=== PATIENT | female | born 2005 | race Caucasian/White ===

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

== ENCOUNTER → 2025-01-01 | Outpatient (CLI) | payer OTHER, SELFPAY ==
[2025-01-01 18:00] LABS: AST(SGOT) 24 U/L (<=31); Alanine Aminotransfer ALT/SGPT 20 U/L (<=34); Albumin, Serum 5.1 g/dL (3.5-5.0); Alkaline Phosphatase 78 U/L (35-104); Bilirubin, Direct 0.17 mg/dL (0.00-0.30); Protein, Total 8.1 g/dL (5.9-8.4)
== END | disposition home or self-care (01) ==
LOC: MTLAB 15:44
PROVIDERS: PCP Pediatrics; Referring Provider Internal Medicine Gastroenterology; Visit Provider Internal Medicine Gastroenterology
DX: R94.8 Abnormal results of function studies of other organs and systems (principal); R93.5 Abnormal findings on diagnostic imaging of other abdominal regions, including retroperitoneum; D18.03 Hemangioma of intra-abdominal structures; K76.89 Other specified diseases of liver
CPT/HCPCS: 36415; 80076

== ENCOUNTER → 2025-02-24 | Outpatient (CLI) | payer OTHER, SELFPAY ==
--- OUTSIDE RECORDS SUMMARY | 2025-02-24 07:10 | XMS RPT_ITS | CCD ---
Author Organization [facility] Care Team Providers Care Service Delivery Supervisor Name Role Phone Cam Tan MD Primary Care Provider Dr. Cam Tan MD Primary Care Provider FREDDIE FIGUEROA Attending Provider FREDDIE FIGUEROA Referring Provider FREDDIE FIGUEROA Attending Provider FREDDIE FIGUEROA Referring Provider FREDDIE FIGUEROA Attending Provider FREDDIE FIGUEROA Referring Provider Dr. Cam Tan MD Primary Care Provider FREDDIE FIGUEROA Attending Provider FREDDIE FIGUEROA Referring Provider Cam Tan MD Primary Care Provider Cam Tan MD Primary Care Provider Cam Tan Primary Care Provider Jennifer GILBERT, Dr. Freddie Gomez Attending Provider [phone] Dr. Freddie Figueroa MD Referring Provider [phone] TARUN FARRIS Attending Unavailable FREDDIE FIGUEROA Referring Unavailable CAM TAN Primary Care Unavailable TARUN FARRIS Attending Unavailable CAM TAN Primary Care Unavailable TARUN FARRIS Attending Unavailable CAM TAN Primary Care Unavailable TARUN FARRIS Admitting Unavailable TARUN FARRIS Attending Unavailable CAM TAN Primary Care Unavailable BIANKA MACIEL Attending Unavailable CAM TAN Primary Care Unavailable STRONG, CAM H Primary Care Unavailable SOWMYA MACIEL Referring Unavailable STRONG, CAM H Primary Care Unavailable JANELL, SOWMYA Attending Unavailable Strong, Cam Primary Care Unavailable Glessing, Freddie R Referring Unavailable Glessing, Freddie R Attending Unavailable Strong, Cam Primary Care Unavailable AndLucas braden Attending Unavailable Strong, Cam Primary Care Unavailable BELNAVIS, PÉREZ Referring Unavailable BELNAVIS, PÉREZ Attending Unavailable Strong, Cam Primary Care Unavailable Glessing, Freddie R Attending Unavailable Glessing, Freddie R Referring Unavailable Strong, Cam Primary Care Unavailable BELNAVIS, PÉREZ Attending Unavailable BELNAVIS, PÉREZ Referring Unavailable Strong, Cam Primary Care Unavailable BELNAVIS, PÉREZ Attending Unavailable BELNAVIS, PÉREZ Referring Unavailable Strong, Cam Primary Care Unavailable BELNAVIS, PÉREZ Attending Unavailable BELNAVIS, PÉREZ Referring Unavailable Strong, Cam Primary Care Unavailable Glessing, Freddie R Attending Unavailable Glessing, Freddie R Referring Unavailable Strong, Cam Primary Care Unavailable Glessing, Freddie R Attending Unavailable Glessing, Freddie R Referring Unavailable BELNAVIS, PÉREZ Attending Unavailable Strong, Cam Primary Care Unavailable BELNAVIS, PÉREZ Referring Unavailable Medications Current Medications Medication Drug Class(es) Dates Sig (Normalized) Sig (Original) ondansetron 4 mg oral tablet (12 sources) Serotonin-3 Receptor Antagonist Start: 01-09-2025 End: 01-22-2025 take 1 tablet by mouth every eight hours as needed for nausea and vomiting ondansetron (Zofran) 4 MG tablet Take 1 tablet (4 mg) by mouth every 8 hours as needed for nausea or vomiting for up to 10 doses. 10 tablet 01/22/2025 Active Start: 01-09-2025 End: 01-09-2025 4 mg, IntraVENous, Once PRN, nausea, Starting on Sun01/09/25 at 1144, For 1 dose, Recovery (only), Initial antiemetic therapy. Start: 05-27-2024 take 1 tablet by daniel th three times daily as needed for nausea and vomiting Ondansetron 4 mg tablet,disintegrating Active 4 mg PO THREE TIMES A DAY as needed for nausea and vomiting May 27, 2024 8:36am oxyCODONE hydrochloride 5 mg oral tablet (3 sources) Opioid Agonist Start: 01-09-2025 End: 01-14-2025 take 1 tablet by mouth every six hours as needed for pain oxyCODONE (Roxicodone) 5 MG immediate release tablet Indications: Biliary dyskinesia , Chronic cholecystitis , Biliary sludge determined by ultrasound Take 1 tablet (5 mg) by mouth every 6 hours as needed for severe pain (7-10) for up to 5 days. 15 tablet 01/09/2025 1:12 PM EDT 01/09/2025 01/14/2025 Active polyethylene glycol 3350 89616 mg powder for oral solution (10 sources) Osmotic Laxative Start: 01-09-2025 End: 01-23-2025 polyethylene glycol, PEG, 3350 (Glycolax) 17 GM/SCOOP powder Mix 1 capful (17 grams) into 4-8 oz of liquid and drink daily for 10 days. 238 g 01/09/2025 1:12 PM EDT 01/09/2025 01/23/2025 Active Start: 10-28-2023 End: 05-27-2024 Polyethylene Glycol 3350 (Mi ralax) 17 gram/dose powder Discontinued 17 g PO TWICE A DAY 119 October 28, 2023 12:00am May 27, 2024 5:37am rizatriptan 10 mg oral tablet (3 sources) Serotonin-1b and Serotonin-1d Receptor Agonist Start: 01-01-2020 End: 06-29-2023 take 1 tablet by mouth every two hours as needed rizatriptan (MAXALT) 10 mg tablet Take 1 tablet by mouth as needed. May repeat in 2 hours if needed. Please refer to the migraine action plan 10 tablet 0 01/01/2020 06/29/2023 Discontinued Comment on above: Take 1 tablet by daniel as needed. May repeat in 2 hours if needed. Please refer to the migraine action plan Completed/Discontinued Medications Medication Drug Class(es) Dates Sig (Normalized) Sig (Original) acetaminophen 500 mg oral tablet (5 sources) Start: 01-09-2025 End: 01-09-2025 1,000 mg, Oral, Once, On Sun01/09/25 at 0930, For 1 dose, Preprocedure, Administer 60 minutes prior to surgery. Start: 09-05-2019 End: 06-29-2023 take 2 tablets by mouth every six hours as needed acetaminophen (TYLENOL) 325 mg tablet Take 2 tablets by mouth every 6 hours as needed (per the headache action plan). 0 09/05/2019 06/29/2023 Discontinued Comment on above: Take 2 tablets [address] [facility] every 6 hours as needed (per the headache action plan). ALPRAZolam 0.25 mg disintegrating oral tablet (4 sources) Benzodiazepine Start: 2024 End: 2024 take 0.25 mg by mouth once as needed for anxiety 0.25 mg, Oral, Once PRN, anxiety, Starting on Sun01/09/25 at 0947, For 1 dose, Preprocedure, Please do not administer prior to obtaining consent and/or history and physical. calcium chloride 0.0014 meq/ml / potassium chloride 0.004 meq/ml / sodium chloride 0.103 meq/ml / sodium lactate 0.028 meq/ml injectable solution (4 sources) Start: 2024 End: 2024 take 50 mL intravenously every hour 50 mL/hr, IntraVENous, Continuous, Starting on Sun01/09/25 at 1000, Preprocedure, Upon admission to sameday - please start iv if patient does not have iv access. Use 500ml NS for patients on dialysis. dicyclomine hydrochloride 20 mg oral tablet (6 sources) Anticholinergic Start: 2023 End: 2023 take 1 tablet by mouth three times daily Dicyclomine 20 mg tablet Discontinued 20 mg PO THREE TIMES A DAY October 28, 2023 12:00am May 27, 2024 5:37am 1 ml HYDROmorphone hydrochloride 1 mg/ml cartridge (2 sources) Opioid Agonist Start: 2024 End: 2024 0.5 mg, IntraVENous, Every 5 min PRN, severe pain (7-10), Starting on Sun01/09/25 at 1144, For 4 doses, Recovery (only), For Phase I. If Phase II oral narcotics have been administered in the last 60 minutes, do not administer IV narcotics unless specifically approved by provider. 5 ml sodium chloride 9 mg/ml injection (12 sources) Start: 2024 End: 2024 10 mL, IntraVENous, Every 12 hours scheduled (2 times per day), First dose on Sun01/09/25 at 0930, Preprocedure Start: 01-09-2025 End: 01-09-2025 take 5-40 mL intravenously every twelve hours 5-40 mL, IntraVENous, Every 12 hours, First dose on Sun01/09/25 at 0930, Preprocedure, For Line Patency: Peripheral IV = 5 mL; Midline or Central Line = 10 mL/lumen. If following IV push medication, administer flush at same rate as the IV push. Flush volume is determined by type of infusion therapy being given. For non-viscous solutions use: Peripheral IV = 5 mL Midline or Central Line = 10 mL/lumen For viscous solutions (i.e. blood components, parenteral nutrition, contrast media, or after obtaining blood sample) use: Peripheral IV = 10 mL Midline or Central Line = 20 mL/lumen Start: 01-09-2025 End: 01-09-2025 take 100 mL intravenously every hour as needed, then take 20 mL intravenously every hour as needed 5-250 mL/hr, IntraVENous, PRN, if patient receiving piggyback infusions and maintenance fluids are not ordered OR KVO fluids to protect IV site / prevent frequent line interruptions/ long duration, Starting on Sun01/09/25 at 0923, Preprocedure, For piggyback infusion, administer at same rate as piggyback for a total of 25 mL. Enter 25 mL into dose field and piggyback rate into rate field of order. If piggyback is infusing at a rate less than 100 mL/hr, enter 25 mL into dose field and 100 mL/hr into rate field of order. For KVO fluids, enter rate of 20 mL/hr or less into rate field of order. Start: 01-09-2025 End: 01-09-2025 take 10 mL intravenously once as needed 10 mL, IntraVENous, PRN, line care, Starting on Sun01/09/25 at 0923, Preprocedure, After every IV line use Problems Active Problems Problem Classification Problem Date Documented Da te Episodic/Chronic Abdominal pain (15 sources) Abdominal pain; Translations: [Unspecified abdominal pain] Onset: 06-17-2024 10-28-2023 Episodic Biliary tract disease (11 sources) Biliary sludge; Translations: [Other specified diseases of biliary tract] Onset: 01-05-2025 01-05-2025 Chronic Biliary tract disease (20 sources) Biliary dyskinesia; Translations: [Other specified diseases of gallbladder] Onset: 01-05-2025 01-05-2025 Episodic Esophageal disorders (1 source) Gastro-esophageal reflux disease without esophagitis; Translations: [Gastro-esophageal reflux disease without esophagitis] Onset: 12-26-2024 Chronic Genitourinary symptoms and ill-defined conditions (2 sources) Dysuria; Translations: [Dysuria] Onset: 01-27-2025 01-27-2025 Episodic Headache; including migraine (8 sources) Refractory migraine without aura; Translations: [Migraine without aura, intractable, without status migrainosus] Onset: 10-17-2017 10-17-2017 Chronic Immunizations and screening for infectious disease (3 sources) Patient encounter status; Translations: [Encounter for immunization] Episodic Menstrual disorders (2 sources) Menorrhagia; Translations: [Excessive and frequent menstruation with regular cycle] 06-29-2023 Chronic Nausea and vomiting (7 sources) Nausea and vomiting; Translations: [Nausea with vomiting, unspecified] Onset: 12-26-2024 06-04-2024 Episodic Other aftercare (1 source) Surgical follow-up; Translations: [Encounter for follow-up examination after completed treatment for conditions other than malignant neoplasm] 01-22-2025 Episodic Other gastrointestinal disorders (1 source) Celiac disease; Translations: [Celiac disease] Onset: 12-26-2024 Chronic Other gastrointestinal disorders (6 sources) Constipation; Translations: [Constipation, unspecified] 10-28-2023 Episodic Other gastrointestinal disorders (4 sources) Abdominal bloating; Translations: [Abdominal distension (gaseous)] 12-02-2024 Episodic Other gastrointestinal disorders (3 sources) Abdominal distension (gaseous); Translations: [Abdominal bloating] Onset: 12-26-2024 Episodic Other gastrointestinal disorders (1 source) Change in bowel habit; Translations: [Change in bowel habit] Onset: 12-26-2024 Episodic Other injuries and conditions due to external causes (6 sources) Fracture of bone; Translations: [Other injury of unspecified body region, initial encounter] 03-26-2021 Episodic Other nervous system disorders (5 sources) H/O: migraine; Translations: [Personal history of other diseases of the nervous system and sense organs] 06-04-2024 Episodic Other screening for suspected conditions (not mental disorders or infectious disease) (1 source) Abnormal results of function studies of other organs and systems; Translations: [Abnormal results of function studies of other organs and systems] Onset: 01-06-2025 Episodic Other upper respiratory infections (6 sources) Pharyngitis; Translations: [Acute pharyngitis, unspecified] 08-07-2018 Episodic Unclassified (2 sources) Post-op; Translations: [Post-op] Onset: 01-22-2025 Unclassified (2 sources) New Patient; Translations: [New Patient] Onset: 01-05-2025 Past or Other Problems Problem Classification Problem Date Documented Da te Episodic/Chronic Other and unspecified benign neoplasm (8 sources) Hemangioma; Translations: [Hemangioma unspecified site] Onset: 2005 2005 Episodic Results Test Name Value Interpretation Reference Range Facility Bacteria Ur Culton 5 Bacteria identified Cx Nom (U) ORGANISM ID: 1 <10,000 CFU/ml Normal urogenital vito Normal [facility] Comment on above: Performed By: #### 6 30-4 #### [facility] CLIA [id number] [address] [place] [address] [place] CNOVon 01-27-2025 CNOV Office Visit (UCWSTR ) JUDITH BEDOLLA ([id number]) 5 F Date Time Provider Department 01/27/25 7:30 PM BIANKA MACIEL [facility] During your visit today, we recorded the following information about you: Temperature Pulse Respiration Blood pressure 97.8 degrees 74/minute 18/minute 113/59 Weight Last Period 68.2 kg 01/22/25 Bianka Maciel APRN.MACHINE TRIMMER 01/27/2025 7:58 PM Signed [facility] Subjective Judith Pablito Bedolla is a 19 year old female. Patient presents with: UTI: Lower abd pressure, discomfort with urination x2 months, recent gallbladder removal, prior UTI treatment from that HPI Abdominal Bloating and Pressure: - Symptoms of bloating and lower abdominal pressure x1 week. - Describes sensation as weird and similar to previous asymptomatic UTIs. - Reports incomplete bladder emptying. - Denies dysuria, vaginal odor, discharge, pruritus, fever, chills, nausea, or emesis. - Recent cholecystectomy a few weeks ago; received antibiotics preoperatively. - Denies risk of STDs. - Normal bowel movements. Review of Systems Constitutional: (-) fever, (-) chills Gastrointestinal: (+) abdominal bloating, (+) lower abdominal pressure, (-) nausea, (-) vomiting Genitourinary: (+) sensation of incomplete bladder emptying, (-) dysuria, (-) vaginal discharge, (-) vaginal odor, (-) vaginal pruritus Objective BP 113/59 Pulse 74 Temp 36.6 ?C (97.8 ?F) Resp 18 Wt 68.2 kg (150 lb 5.7 oz) LMP 01/22/2025 (Exact Date) SpO2 99% Physical Exam General: No acute distress. CV: Heart sounds normal. Resp: Lung sounds normal. Back: No costovertebral angle tenderness. Abd: Mild tenderness to palpation in lower abdomen. {1. Dysuria (R30.0) - No dysuria, vaginal odor, or discharge reported. No fever, chills, nausea, or vomiting. - Urinalysis performed; results normal. - Ordered urine culture to verify absence of infection. - Advised patient to return for re-evaluation if symptoms worsen or change. 2. Abdominal bloating (R14.0) - Abdominal exam reveals tenderness and a sensation of fullness in the lower abdomen. - Symptoms have been present for approximately one week. - Recent cholecystectomy performed a few weeks ago; patient was on antibiotics prior to surgery. - No issues with bowel movements reported. - Advised patient to monitor symptoms and return if they worsen or change. and Recording using ambient Kanjoy[employer] software for draft documentation of the visit was discussed with the patient/authorized international account representative; all questions welcomed and answered. Patient/authorized international account representative agreed to proceed MDM Procedures Allergies As of Date: 01/27/2025 (No Known Allergies) Date Reviewed: 01/27/2025 Reviewed by: Denise Camarillo MA - Fully Assessed Reason for Visit: UTI [116] Cmt: Lower abd pressure, discomfort with urination x2 months, recent gallbladder removal, prior UTI treatment from that Primary Visit Diagnosis:Dysuria [R30.0] Other Visit Diagnosis:Abdominal bloating [R14.0] Order(s):UA DIP, URINE (POC) [2740170] Order #: [id number]. #:[id number] BACTERIAL CULTURE, URINE [SQURCUL] Order #: [id number]. #:[id number] Problem List As Of Date 01/27/2025 Noted Resolved HEMANGIOMA UNSPECIFIED SITE [D18.00] 2005 Intractable migraine without aura and without s*10/17/2017 Encounter Status:Closed by BIANKA MACIEL on 01/27/25 Normal [facility] UA DIP, URINE (POC)on 2024 BILIRUBIN UA (POCT) Negative Negative [facility] CLARITY UA (POCT) Clear [facility] COLOR UA (POCT) Yellow [facility] GLUCOSE UA (POCT) Negative Negative mg/dL [facility] Hemoglobin Ql (U) Negative Negative [facility] KETONE UA (POCT) Negative Negative mg/dL [facility] LEUKOCYTES UA (POCT) Negative Negative [facility] NITRITE UA (POCT) Negative Negative [facility] PH UA (POCT) 6 4.5 - 8.0 [facility] Protein Ql (U) Negative Negative mg/dL [facility] SPECIFIC GRAVITY UA (POCT) >=1.030 1.005 - 1.030 [facility] UROBILINOGEN UA (POCT) 0.2 Tonya l E.U./dL [facility] Location:[facility], [address] [place] [address], [place], [place], [id number] [place] [address] POINT OF CARE [facility] Office Visiton 01-22-2025 Follow-up visit [id number] Judith Bedolla 2005 F Date Provider Department Center 01/22/2025 [id number] FARRIS [facility] None No family history on file Level of Service:32221 MS POSTOP FOLLOW UP VISIT RELATED TO ORIGINAL PX Reason for Visit and Comments: Post-op [483] - PO Lap Anali 01/[address] [facility] Progress Noteon 01-22-2025 Progress Note General Surgery Tarun Farris MD, MPH Outpatient Post-Operative/Follow Up Office Note Patient ID: Judith Bedolla [id number] 19 y.o. 2005 Post Op. Surgery Date: 01/09/2025 Surgical Procedure: Laparoscopic Cholecystectomy. Diet has returned to normal. Pain well controlled. Some urge for defecation and stools soft but improving. Bad nausea post-op from anesthesia, improved with Zofran. Has been maintaining light activity. Wounds healing well. No other complaints or concerns at this time. Medical History[1] Surgical History[2] Medications Prior to Visit: Prior to Admission medications Medication Sig Start Date End Date Taking? Authorizing Provider polyethylene glycol, PEG, 3350 (Glycolax) 17 GM/SCOOP powder Mix 1 capful (17 grams) into 4-8 oz of liquid and drink daily for 10 days. 01/09/25 01/23/25 Yes Tarun Farris MD ondansetron (Zofran) 4 MG tablet Take 1 tablet (4 mg) by mouth every 8 hours as needed for nausea or vomiting for up to 10 doses. 01/09/25 01/22/25 Yes Tarun Farris MD ondansetron (Zofran) 4 MG tablet Take 1 tablet (4 mg) by mouth every 8 hours as needed for nausea or vomiting for up to 10 doses. 01/22/25 Tarun Farris MD Allergies: Patient has no known allergies. Social History[3] Family History[4] REVIEW OF SYSTEMS: Otherwise negative unless noted above. PHYSICAL EXAM: BP 119/78 Pulse 82 Temp 36.4 ?C (97.6 ?F) Ht 5' 7 (1.702 m) Wt 149 lb (67.6 kg) LMP 12/23/2024 (Exact Date) BMI 23.34 kg/m? Physical Exam Constitutional: General: She is not in acute distress. Appearance: She is not ill-appearing, toxic-appearing or diaphoretic. Comments: Appears stated age HENT: Head: Normocephalic and atraumatic. Right Ear: External ear normal. Left Ear: External ear normal. Nose: Nose normal. No rhinorrhea. Mouth/Throat: Mouth: Mucous membranes are moist. Eyes: General: No scleral icterus. Right eye: No discharge. Left eye: No discharge. Extraocular Movements: Extraocular movements intact. Conjunctiva/sclera: Conjunctivae normal. Cardiovascular: Rate and Rhythm: Normal rate. Pulses: Normal pulses. Pulmonary: Effort: Pulmonary effort is normal. No respiratory distress. Breath sounds: No wheezing. Abdominal: General: There is no distension. Palpations: There is no mass. Tenderness: There is no abdominal tenderness. There is no guarding or rebound. Hernia: No hernia is present. Comments: Well healing port site incisions - there is induration at the umbilicus Musculoskeletal: General: No swelling, tenderness, deformity or signs of injury. Normal range of motion. Cervical back: Normal range of motion. No rigidity. Skin: General: Skin is warm and dry. Neurological: General: No focal deficit present. Mental Status: She is alert. Cranial Nerves: No cranial nerve deficit (No gross abnormality). Psychiatric: Mood and Affect: Mood normal. Behavior: Behavior normal. Thought Content: Thought content normal. No orders of the defined types were placed in this encounter. PATHOLOGY: Final Diagnosis GALLBLADDER, CHOLECYSTECTOMY: - CHRONIC CHOLECYSTITIS at 1635 EDT Clinical Information Biliary dyskinesia [K82.8] Chronic cholecystitis [K81.1] Biliary sludge determined by ultrasound [K83.8] Gross Description Received in formalin labeled gallbladder is an 8.3 cm in length by 2.3 cm in diameter intact gallbladder. The serosa is pink-purple, smooth, and glistening. The cystic duct margin is inked black. Wall thickness is normal ranging 0.1 to 0.3 cm. The mucosa is green-brown and velvety with no mass or yellow-ontiveros streaking seen. Calculi are not identified. Commodity Management Specialist sections are submitted in one cassette. ASSESSMENT AND PLAN: This is a 19 y.o. female who underwent laparoscopic cholecystectomy on 01/09/25 and presents for a regularly scheduled post-op visit -Pathology reviewed at length - chronic cholecystitis. -Diet as tolerated -Stop Miralax -Continue PRN zofran -No need for further narcotics -Continue planned follow up with GI re: celiac dz -Refill for Zofran sent to pharmacy -Call as needed, follow up MIMA Farris MD 01/22/2025 4:59 PM [1] Past Medical History: Diagnosis Date Celiac disease 12/04/24 Colon polyp 12/04/24 Fractures 2014, 2021 Irritable bowel syndrome 01/27 Motion sickness [2] Past Surgical History: Procedure Laterality Date COLONOSCOPY 11/12/2024 LAP,CHOLECYSTECTOMY (HISTORICAL) 01/09/2025 LIP SURGERY (HISTORICAL) 2006 UPPER GASTROINTESTINAL ENDOSCOPY 11/12/2024 WISDOM TOOTH EXTRACTION [3] Social History Socioeconomic History Marital status: Single Tobacco Use Smoking status: Never Smokeless tobacco: Never Vaping Use Vaping status: Never Used Substance and Sexual Activity Alcohol use: Never Drug use: Never Sexual activity: Never Social Drivers of Health (more content not included)... [facility] 36on 01-15-2025 36 S: Patient's mom (Little) is calling the [facility] to discuss post op issue - nausea. B: Onset of symptoms/concern since surgery last week - 01-09-25. A: Mom states pt has been having issues with nausea since her gallbladder surgery. Denies fever, vomiting, bleeding or drainage to incisions; pain with urination, abdominal pain. Pt is only taking occas OTC Tylenol or Ibuprofen for pain. Pain is mild at this time; only slight constipation. Rev'd with Mom that pt should have Rx for Zofran - from 01-09-25. Mom states she has the bottle of Zofran but they were not sure what it was for. She will start taking Zofran and see if that helps. Advised Mom to have pt eat small frequent snacks, bland diet, sip fluids. R: Mom states she understands home care instructions. She will call back if any further ques or concerns. Keep appt for 01-22-25. Reason for Disposition Other post-op symptom or question Answer Assessment - Initial Assessment Questions 1. SYMPTOM: What's the main symptom you're concerned about? (e.g., pain, fever, vomiting) nausea 2. ONSET: When did nausea start? Ongoing since surgery 3. SURGERY: What surgery did you have? Gallbladder removal 4. DATE of SURGERY: When was the surgery? 01-09-25 5. ANESTHESIA: What type of anesthesia did you have? (e.g., general, spinal, epidural, local) general 6. DRAINS: Were any drains place in or around the wound? (e.g., Hemovac, Kalyan-Ortiz, Milady) No 7. PAIN: Is there any pain? If Yes, ask: How bad is it? (Scale 1-10; or mild, moderate, severe) Mild to moderate 8. FEVER: Do you have a fever? If Yes, ask: What is your temperature, how was it measured, and when did it start? No 9. VOMITING: Is there any vomiting? If Yes, ask: How many times? No - nausea 10. BLEEDING: Is there any bleeding? If Yes, ask: How much? and Where? No 11. OTHER SYMPTOMS: Do you have any other symptoms? (e.g., drainage from wound, painful urination, constipation) Slight constipation Protocols used: Post-Op Symptoms and [facility]on 01-09-2025 36 S: Patient mother Yelitza hayes spoke with [facility] nurse regarding post op problem B: Onset of symptoms/concern today A: States she had gallbladder surgery earlier today with Dr Farris. States she was having dry heaves since surgery. Gave her Zofran and tylenol at 4 pm. Pt had emesis at 410 pm. Unsure if vomited up meds, questions if should re-dose? Did not feel pills in emesis bag, did not see any but unsure if they were retained. R: secure chat to econometrician Jason Hanna LUNCHROOM OPERATOR. Per Jason Hanna, Okay to repeat dose of Zofran. Would hold off on the tylenol Above relayed to caller, advised caller to resume tylenol when next dosing time is due. Also discussed sticking to clear liquids and slowly advancing diet as tolerated due to the nausea and vomiting. Caller understands care advice. No further needs at this time. Patient instructed to call back with new or worsening symptoms. Reason for Disposition [1] Caller has URGENT question AND [2] triager unable to answer question Protocols used: [facility] ( test) Ql (U)o n 01-09-2025 Beta HCG ( test) Ql (U) [id number] [facility] Interpretation and review of laboratory results Normal [facility] NEGATIVE QC Pass [facility] POSITIVE QC Pass [facility] Preg Test, Ur Negative Negative [facility] Nursing Noteon 01-09-2025 Nursing Note To phase 2 via cart report to phase 2 rn tolerated cracker and clear liquids well Normal [facility] Nursing Note Patient educated on importance of coughing/ deep breathing after surgery to reduce risk of pneumonia. Patient educated on importance of early mobility to reduce the risk of blood clots. Falls prevention information reviewed with patient. Post-operative pain control and ways to prevent constipation discussed with patient. Normal [facility] [id number] 01-06-2025 [id number] Medication List as of January 06, 2025 11:40 AM You have not been prescribed any medications. Additional Instructions: You may take your prescription pain medication. You may take Tylenol for pain. NO Motrin, ibuprofen or Advil for 24 hours prior to surgery or longer if instructed by your surgeon. NO Aleve or Naprosyn for 5 days prior to surgery or longer if instructed by your surgeon. Shower with an antibacterial soap such as Dial or Safeguard or shower kit provided to you before coming to the hospital. No makeup, lotion, powder, deodorant or body spays. No hair products. Remove all jewelry and leave it at home. Wear loose comfortable clothing to go home in. You may brush your teeth morning of surgery. Do not wear contacts day of surgery. No marijuana (THC), smoking or alcohol for 24 hours prior to surgery. Please arrange for a responsible adult to drive you home after your surgery and that there is a responsible adult with you for 24 hours post discharge. If you have specific questions, please call your surgeon. You will receive a call the day before your surgery to verify your arrival time and date. You will be asked to arrive at least two hours prior to your scheduled surgery time. Please bring your [facility] Surgical folder and medication list with you day of surgery. We encourage you to write down any questions you may have for the surgeon, anesthesiologist, or other members of the surgical team and bring it with you the day of surgery. Please bring photo ID and insurance information. [facility] Progress Noteon 01-06-2025 Progress Note ADVANCED CARE PLANARIANNA Bedolla : 2005 Primary Care Physician: Cam Tan The patient and/or family/surrogate voluntarily agreed to participate in ACP services. Patient?s cognitive capacity: AXO3 Code Status: [x] [FULL CODE - Continue all advanced life support: CPR,intubation,invasiv e procedures] [_] [DNR-CCA - DO NOT do CPR, intubation] [_] [DNR-PLASTERER ROUGH - Comfort care only] [_] DNR form [was/was not] signed Summary of discussion: The patient health care POA/ surrogate is the following: None . [Condition that instigated the ACP on this DOS, relevant PMH, functional status, goals of care, and whom this was discussed with including names and relationship to the patient, and any relevant advance care documentation discussion] I answered all the patient/family questions that I could within the range and scope of the current medical situation. We discussed the medical conditions, risks, benefits, outcomes, and goals of care at this time for the patient's medical issues at hand in the face of the patient's chronic issues and current presentation. Total time spent: 4 minutes were spent discussing the patient's resuscitation status, advance care planning, and end of life care, with patient and/or family/surrogate. Anthony Pollock PA-C Acute care [facility] 01/06/2025, 11:[address] 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 Figueroa [facility] Bilirubin directOrdered By: Freddie Figueroa on 01-01-2025 Bilirubin.direct [Mass/Vol] 0.17 mg/dL Normal 0.00-0.30 [facility] Comment on above: Performed By: #### L 500.3400 ####[facility] [address] [place], [place], [id number] Bilirubin, totalOrdered By: Freddie Figueroa on 01-01-2025 Bilirubin [Mass/Vol] 0.40 mg/dL Normal 0.00-1.30 [facility] Comment on above: Performed By: #### L 500.3400 ####[facility] [address] [place], [address] Liver Profileon 01-01-2025 ALK PHOS 78 U/L Normal 35-104 [facility] Comment on above: Performed By: #### L 500.3400 ####[facility] [address] [place], [address] T PROT 8.1 g/dL Normal 5.9-8.4 [facility] Comment on above: Performed By: #### L 500.3400 ####[facility] [address] [place], [address] Liver ProfileOrdered By: Desmond Figueroa on 01-01-2025 AST [Catalytic activity/Vol] 24 U/L Normal <=31 [facility] Comment on above: Performed By: #### L 500.3400 ####[facility] [address] [place], [address] Serum globulin measurementOr dered By: Freddie Figueroa on 01-01-2025 Globulin (S) [Mass/Vol] 3.0 g/dL Normal 2.2-4.2 [facility] Comment on above: Performed By: #### L 500.3400 ####[facility] [address] [place], [address] Serum or plasma alanine hutson otransferase (ALT) measurementOrdered By: Freddie Figueroa on 01-01-2025 ALT [Catalytic activity/Vol] 20 U/L Normal <=34 [facility] Comment on above: Performed By: #### L 500.3400 ####[facility] [address] [place], [address] Serum or plasma albumin parveen urement (mass/volume)Ordered By: Freddie Figueroa on 01-01-2025 Albumin [Mass/Vol] 5.1 g/dL High 3.5-5.0 [facility] Comment on above: Performed By: #### L 500.3400 ####[facility] [address] [place], [address] Serum or plasma alkaline amanda sphatase measurementOrdered By: Freddie Figueroa on 01-01-2025 ALP [Catalytic activity/Vol] 78 U/L 35-104 [facility] Total proteinOrdered By: Desmond Figueroa on 01-01-2025 Protein [Mass/Vol] 8.1 g/dL 5.9-8.4 [facility] Abdomen Limitedon 12-30-2024 Abdomen Limited [facility] Imaging Services [address] [place], [place] [address] Abdomen Limited MR#: [id number] Acct: [id number] Name: JUDITH BEDOLLA Rep #: [id number] : 2005 F 19 From: Hussain pandey MD PCP: Dr. Cam Tan MD Status: REG CLI Study: Abdomen Limited Date of Exam: 12/30/24 Exam# [id number] Ordering Dr: Freddie Figueroa MD PROCEDURE: ABDOMEN LIMITED 12/30/2024 REASON FOR EXAM: BLOATING COMPARISON: Prior CT scan dated November 06, 2024. FINDINGS: Liver: Grossly normal size and echotexture. There is a 2.8 cm 1.5 cm 1.4 cm cyst in the superior aspect of the right lobe of the liver. There is also evidence of a 1 cm x 0.8 cm x 0.7 cm echogenic focus in the dome of the right lobe of the liver suggestive of a small hemangioma. Gallbladder: Small amount of sludge is seen within the gallbladder lumen. Common bile duct: Normal measuring 1.8 mm . Pancreas: Normal Other: Right kidney is unremarkable. US/Abdomen Limited IMPRESSION: Small cyst in the right lobe of the liver as well as a small hemangioma in the right lobe of the liver. Small amount of sludge is seen in the gallbladder lumen. Reading Location: [facility] CC: Dr. Freddie Figueroa MD; Dr. Cam Tan MD Club Car Attendant: Signed [facility] Hepatobilliary Img w/Pharm I nton 12-30-2024 Hepatobilliary Img w/Pharm Int [facility] Imaging Services [address] [place], [place] [address] Hepatobilliary Img w/Pharm Int MR#: [id number] Acct: [id number] Name: JUDITH BEDOLLA Rep #: [id number] : 2005 F 19 From: Hussain pandey MD PCP: Dr. Cam Tan MD Status: REG CLI Study: Hepatobilliary Img w/Pharm Int Date of Exam: 0 12/30/24 Exam# [id number] Ordering Dr: Freddie Figueroa MD PROCEDURE: HEPATOBILLIARY IMG W/PHARM INT 12/30/2024 REASON FOR EXAM: BLOATING, NAUSEA, GERD TECHNIQUE: Intravenous Choletec with planar imaging of the abdomen. 1.4 mcg Kinevac intravenously approximately 60 minutes after the radiopharmaceutical with additional anterior imaging and a region of interest drawn around the gallbladder to calculate a time-activity curve. RADIOPHARMACEUTICAL: Mebrofenin DOSE 6mCi COMPARISON: None FINDINGS: There is good uptake of the radiopharmaceutical by the liver. Normal gallbladder visualization with the gallbladder identified by 60 minutes. Gallbladder Ejection Fraction: 21 % (Normal is >35%) NM/Hepatobilliary Img w/Pharm Int IMPRESSION: Abnormally low ejection fraction of 21%. Reading Location: [facility] CC: Dr. Freddie Figueroa MD; Dr. Cam Tan MD Club Car Attendant: Signed [facility] US Pelvison 12-10-2024 Indication abdominal bloating Impression Normal appearing anteverted uterus that measures 88 mm x 38 mm x 47 mm. Endometrium has a normal trilaminar appearance and measures 12 mm. Arcuate endometrial contour. Both ovaries are visualized and appear normal with follicular change. No adnexal masses were observed. There is free fluid visualized in the peritoneal cavity. Recommendations Follow up as clinically indicated. Menstrual History LMP on 11/18/2024. Cycle: regular cycle. Contraception: none Method Transabdominal, transvaginal, 3D ultrasound examination, Color Doppler examination. View: Adequate visualization Uterus Uterus: Visualized Uterus position: anteverted Description of uterine malformations: arcuate Myometrium: normal Endometrium: three-layer pattern Cervix details: cystic lesions identified suggesting superficial Nabothian cysts Uterus length 88 mm Uterus width 47 mm Uterus height 38 mm Uterus Vol 81.5 cm Endometrial thickness, total 12.0 mm Fibroids: No fibroids identified Polyps: No polyps identified Right Ovary Rt ovary: Visualized Rt ovary morphology: premenopausal with dominant follicle Rt ovary D1 47 mm Rt ovary D2 23 mm Rt ovary D3 22 mm Rt ovary Vol 12.3 cm Rt ovarian follicle D1 22.1 mm Rt ovarian follicle D2 19.6 mm Rt ovarian follicle mean 20.9 mm Rt ovarian follicle vol 4.445 cm Left Ovary Lt ovary: Visualized Lt ovary morphology: premenopausal normal follicular Lt ovary D1 26 mm Lt ovary D2 11 mm Lt ovary D3 14 mm Lt ovary Vol 2.0 cm Cul de Sac Visualized. free fluid visualized: trace Performed By: Reshma Hays RDMS Read By: Elenita Romero M.D. MATERNAL MEDICINE [facility] Pelvison 12-09-2024 [facility] ) JUDITH BEDOLLA ([id number]) 5 F Date Time Provider Department 12/02/24 8:30 AM SOWMYA MACIEL OBGYWM During your visit today, we recorded the following information about you: Blood pressure Weight Last Period 100/68 70.7 kg 11/19/24 Sowmya Maciel MD 12/02/2024 9:18 AM Signed Youth Services Specialist offered: Patient declines. Obstetrics and Gynecology Concrete LOOM SETTER Visit Subjective Recording using ClipClock software for draft documentation of the visit was discussed with the patient/authorized international account representative; all questions welcomed and answered. Patient/authorized international account representative agreed to proceed CHIEF COMPLAINT: The patient is a 19-year-old female presenting for evaluation of bloating, pain, and nausea. HPI: Gastrointestinal Symptoms - Reports experiencing bloating, pain, and nausea for about three years. - Symptoms are exacerbated before and during her menstrual cycle, with increased bloating and intensified pain. - Recently developed acid reflux. - Currently under the care of a product operations associate at [facility] in [place]. - Underwent a colonoscopy and endoscopy, which revealed bile; further evaluation is ongoing. Menstrual Irregularities - Reports a history of painful and irregular menstrual cycles. - Noted a decrease in dysmenorrhea over time. - Menstrual cycle length ranges from 30 to 40 days. - Flow varies, lasting between 3 to 7 days. - Denies any vaginal itching, burning, or other symptoms suggestive of infection. Sexual Health - Denies any history of sexual activity. HISTORY: OB History Gravida0 Para0 Term0 Preterm0 AB0 Living0 SAB0 IAB0 Ectopic0 Multiple0 Live Births0 Territory Sales Manager Medical History LMP: 11/19/2024, Having periods Age at Menarche: Age at First : Age at Menopause: Territory Sales Manager Medical History Comments: Sexual Activity: Never; No partner data on record Contraception: No contraception data on record PAST MEDICAL HISTORY Diagnosis Date Abnormal findings on screening slightly elevated tyrosine Migraines NEGATIVE MEDICAL HISTORY 06/23/10 normal color vision PAST SURGICAL HISTORY Procedure Laterality Date LIP SURGERY PROC UNLISTED 05/05/2008 Hemangioma FAMILY HISTORY Problem Relation Age of Onset Cancer Father Breast cancer Hypertension Father MGGM Lipids Father father, PGM other (migraine) Father pat uncle Social History Tobacco Use Smoking status: Never Passive exposure: Never Smokeless tobacco: Never Vaping Use Vaping status: Never Used Substance Use Topics Alcohol use: Never Drug use: Never No current outpatient medications on file. No current facility-administered medications for this visit. ALLERGIES No Known Allergies REVIEW OF SYSTEMS: Gastrointestinal: (+) bloating, (+) abdominal pain, (+) nausea, (+) acid reflux Genitourinary: (+) irregular menses, (-) vaginal itching, (-) vaginal burning, (-) vaginal discharge Objective SENSITIVE EXAM: The sensitive examination was discussed with the Patient or Patient's Authorized Commodity Management Specialist. As applicable, any other physician, advance practice provider, medical student, or other health professional student that will be observing or involved in the sensitive examination for educational or training purposes was discussed with the Patient or Authorized Commodity Management Specialist. The Patient or Authorized Commodity Management Specialist has agreed to proceed with the sensitive examination. (Sensitive examination includes inspection and/or palpation of the breasts, pelvis, prostate and anorectal regions). PHYSICAL EXAM: BP 100/68 Wt 155 lb 12.8 oz (70.7kg) LMP 11/19/2024 General: No acute distress. Abd: Abdomen soft, non-distended, non-tender to palpation. Assessment AND Plan ASSESSMENT AND PLAN: 1. Abdominal bloating (R14.0) 2. Chronic abdominal pain (R10.9) 3. Nausea (R11.0) - Symptoms have been present for approximately 3 years, with exacerbation noted during menstrual cycles. - Recent colonoscopy and endoscopy performed by the [facility] in [place] revealed bile; no definitive diagnosis yet. - Abdominal exam reveals a soft, non-distended abdomen without tenderness. - Ordered pelvic ultrasound to evaluate uterus and ovaries; patient consented to both abdominal and transvaginal probes. - Discussed potential use of hormonal medication to manage cyclic symptoms if ultrasound findings are inconclusive. - Patient prefers to await ultrasound results before considering hormonal treatment. - Ultrasound to be scheduled at the meat scrubber; performed in this building. Labs AND imaging results from [facility] reviewed Medical Decision Making: Problems: Moderate: New problem with uncertain prognosis Data: Unique test result(s) reviewed: 3+ Risk: Low: Low risk from testing/treatment Medical Decision Making Level: 4 - Moderate Sowmya Maciel, (more content not included)... Normal [facility] Gastric Emptying Studyon Gastric Emptying Study [facility] Imaging Services [address] [place], [place] [id number] Gastric Emptying Study MR#: [id number] Acct: [id number] Name: JUDITH BEDOLLA Rep #: [id number] : 2005 F 19 From: Nathan Samano MD PCP: Dr. Cam Tan MD Status: REG CLI Study: Gastric Emptying Study Date of Exam: 11/14/24 Exam# [id number] Ordering Dr: FREDDIE FIGUEROA PROCEDURE: GASTRIC EMPTYING STUDY N/A REASON FOR EXAM: ABD BLOATING/CRAMPING/NAUS EA/PAIN/CONSTIPATION SHARP BELLY PAIN. COMPARISON: CT ABDOMEN AND PELVIS DATED 11/06/2024. TECHNIQUE: Half-life: 40 MINUTES Gastroesophageal reflux: None. The patient ingested a standard meal of 1 cup of oatmeal with the radiopharmaceutical. Following ingestion, anterior and posterior gamma camera images were acquired at 60 second intervals for a total of 60 minutes. Regions of interest were drawn, and a geometric mean was used to calculate a udhh-ebuxlbgt-wzecm. Medications taken in the past 24 hours that may affect gastric emptying: None Radiopharmaceutical: 1.2 mCi of Technetium Sulfur Colloid in oatmeal. FINDINGS: Percent activity remaining in stomach: 1 hour 31 % (normal 37-90%) NM/Gastric Emptying Study IMPRESSION: THERE IS 31% ACTIVITY REMAINING IN THE STOMACH AT 60 MINUTES, SLIGHTLY BELOW THE NORMAL RANGE FOR GASTRIC EMPTYING. Reading Location: [place] [address] CC: FREDDIE FIGUEROA; Dr. Cam Tan MD Club Car Attendant: Signed Normal [facility] Abdomen/Pelvis WITH Contrast on 11-06-2024 Abdomen/Pelvis WITH Contrast [facility] Imaging Services [address] [place] [address] Abdomen/Pelvis WITH Contrast MR#: [id number] Acct: [id number] Name: JUDITH BEDOLLA Rep #: [id number] : 2005 F 19 From: Hussain pandey MD PCP: Dr. Cam Tan MD Status: REG CLI Study: Abdomen/Pelvis WITH Contrast Date of Exam: 10/28 Exam# [id number] Ordering Dr: FREDDIE FIGUEROA PROCEDURE: ABDOMEN/PELVIS WITH CONTRAST 11/06/2024 REASON FOR EXAM: ABD PAIN W/WEIGHT LOSS Nausea. TECHNIQUE: Abdomen and pelvis CT with intravenous contrast. Coronal and Sagittal reconstruction series were provided. PATIENT PREPARATION: Per protocol ORAL CONTRAST TYPE: Given. CONTRAST: Isovue-300 VOLUME: 95 mL One or more dose reduction techniques were used (e.g., Automated exposure control, adjustment of the mA and/or kV according to patient size, use of iterative reconstruction technique. RADIATION DOSE SUMMARY: CTDlvol: 11 mGy DLP: 641.06 mGycm COMPARISON: Comparison is made with prior study dated October 28, 2023. FINDINGS: Lung bases: Unremarkable. Liver: Stable 1.7 cm cyst in the anterior medial portion of the superior right lobe of the liver. Gallbladder: Unremarkable Spleen: Normal size. Pancreas: Normal size without evidence of mass surrounding inflammation or ductal dilation. Adrenals: Unremarkable Kidneys: Normal renal sizes. No hydronephrosis. Bladder: Unremarkable Reproductive Organs: Normal uterine size and contour. 1.8 cm follicle in the left ovary. 1.1 cm follicle in the right ovary. Bowel: Unremarkable Appendix: Unremarkable Lymph nodes: Unremarkable Vasculature: The abdominal aorta and IVC are normal. Peritoneum / Retroperitoneum: Unremarkable Bones: Unremarkable CT/Abdomen/Pelvis WITH Contrast IMPRESSION: Stable 1.7 cm cyst in the anterior medial aspect of the right lobe of the liver superiorly. Reading Location: [place] [address] CC: FREDDIE FIGUEROA; Dr. Cam Tan MD Club Car Attendant: Signed Normal [facility] L3410.9998on 10-24-2024 [facility]. COMMENT Normal . [facility] Comment on above: Order Comment: [id number] 0PORPHYRINS URINE*PROTECT LIGHT Result Comment: Test Ordered: [id number] Porphyrins, Qn, Random U Uroporphyrins (UP) 13 ug/L Reference Range: 0-20 Heptacarboxyl (7-CP) <1 ug/L BN Reference Range: 0-2 Hexacarboxyl (6-CP) <1 ug/L BN Reference Range: 0-1 Pentacarboxyl (5-CP) <1 ug/L BN Reference Range: 0-2 Coproporphyrin (CP) I 19 [H ] ug/L BN Reference Range: 0-15 Coproporphyrin (CP) III 30 ug/L BN Reference Range: 0-49 Performed at: [facility] [address] [id number] Hospital Coder: Karin Agarwal MD, Phone: [phone] Performed at: CB - [facility] [id number] Hospital Coder: Terrance Barrett PhD, Phone: [phone] Performed By: #### L 3400.5105, L501.6710, L3410.9998 ####[facility] [address] [place], [place], [id number] Tryptaseon 10-24-2024 TRYPTASE 3.0 ug/L Normal 2.2-13.2 [facility] Comment on above: Result Comment: Perf ormed at: [facility] [id number] Hospital Coder: Karin Agarwal MD, Phone: [phone] Performed By: #### L 3400.5105, L501.6710, L3410.9998 ####[facility] [address] [place], [place], [id number] CRPon 10-20-2024 C-REACTIVE PROT < 3.00 Normal 0.0-3.0 [facility] Comment on above: Performed By: #### L 3400.5105, L501.6710, L3410.9998 ####[facility] [address] [place], [place], [id number] CRP [Mass/Vol]on 10-20-2024 C-Reactive Protein Extended Range < 3.00 mg/L 0.0-3.0 [facility] Serum or plasma C reactive p rotein measurement (mass/volume)on 10-20-2024 CRP [Mass/Vol] mg/L 0.0-3.0 [facility] Tryptaseon 10-20-2024 Tryptase 3.0 ug/L 2.2-13.2 [facility] Comment on above: Performed at: [facility] [address] [id number] Director: Karin Agarwal MD, Phone: [phone] Urine Cultureon 09-12-2024 [facility] Culture exhibits no growth. Normal [facility] Comment on above: Performed By: #### M 130.5379 #### [facility] Laboratory [address] [place], [place], [id number] Urine cultureon 09-11-2024 Bacteria identified Cx Nom (U) Culture exhibits no growth. [facility] Immunoglobulin Aon 4 IMMUNOGLOB A QN 81 mg/dL Low 87-352 [facility] Comment on above: Order Comment: N Result Comment: Perf ormed at: [facility] [id number] Hospital Coder: Terrance Barrett PhD, Phone: [phone] Performed By: #### L 100.0100, L506.1000, L3410.2970, L3410.2920, L500.4050, L501.6710, L3200.1400, L501.9520 ####[facility] [address] [place], [place], [id number] t-Transglutaminase IgAon tTG IGA <2 Normal 0-3 [facility] Comment on above: Order Comment: N Result Comment: Nega tive 0 - 3 Weak Positive 4 - 10 Positive >10 Tissue Transglutaminase (tTG) has been identified as the endomysial antigen. Studies have demonstr- ated that endomysial IgA antibodies have over 99% specificity for gluten sensitive enteropathy. Performed By: #### L 100.0100, L506.1000, L3410.2970, L3410.2920, L500.4050, L501.6710, L3200.1400, L501.9520 ####[facility] [address] [place], [place], [id number] t-Transglutaminase IgGon tTG IGG 3 U/mL Normal 0-5 [facility] Comment on above: Order Comment: N Result Comment: Nega tive 0 - 5 Weak Positive 6 - 9 Positive >9 Performed By: #### L 100.0100, L506.1000, L3410.2970, L3410.2920, L500.4050, L501.6710, L3200.1400, L501.9520 ####[facility] [address] [place], [address] 81-HE-Nehfmya Don 07-09-2024 Vitamin D 25-Hydroxy 25.9 ng/mL [facility] Comment on above: Vitamin D 25(OH) Sta tus Range Deficiency <20 ng/mL (50nmol/L) Insufficiency 20 - 30 ng/mL (50 - 75 nmol/L) Sufficiency 30 - 100 ng/mL (75 - 250 nmol/L) Toxicity >100 ng/mL (>250 nmol/L) Absolute neutrophil counton 07-09-2024 Neutrophils (Bld) [#/Vol] 4.7 10*3/uL 2.0-7.7 [facility] Albumin to globulin ratioon 07-09-2024 Albumin/Globulin [Mass ratio] 1.2 {ratio} 0.9-2.4 [facility] Basophil percentageon 2023 Basophils/100 WBC (Bld) 0.8 % 0-1 [facility] Bilirubin, totalon Bilirubin [Mass/Vol] 0.50 mg/dL 0.20-1.00 [facility] Comment on above: For patients on eltr ombopag therapy, use of Dimension [place] TBIL is not recommended. Blood urea nitrogen (BUN)/cr eatinine ratioon 07-09-2024 Urea nitrogen/Creatinine [Mass ratio] 19.3 mg/mg 10-20 [facility] C-reactive protein measureme nt by high sensitivity methodon 07-09-2024 C-Reactive Protein Extended Range < 2.90 mg/L 0.0-3.0 [facility] Comment on above: C-Reactive Protein ( CRP) provides useful information for thediagnosis, therapy and monitoring of inflammatory processesand associated diseases. For the evaluation of Relative Riskfor Cardiovascular Disease, a High Sensitivity CRP (HSCRP)should be ordered. CBC W/Diff, Automatedon Absolute Lymph 2.00 X10 3/uL Normal 0.83-4.51 [facility] Comment on above: Performed By: #### L 100.0100, L506.1000, L3410.2970, L3410.2920, L500.4050, L501.6710, L3200.1400, L501.9520 #### [facility] [address] [place], [address] Absolute Neut 4.7 X10 3/uL Normal 2.0-7.7 [facility] Comment on above: Performed By: #### L 100.0100, L506.1000, L3410.2970, L3410.2920, L500.4050, L501.6710, L3200.1400, L501.9520 #### [facility] [address] [place], [address] Basophils/100 WBC (Bld) 0.8 % Normal 0-1 [facility] Comment on above: Performed By: #### L 100.0100, L506.1000, L3410.2970, L3410.2920, L500.4050, L501.6710, L3200.1400, L501.9520 #### [facility] [address] [place], [address] Eosinophils/100 WBC (Bld) 1.1 % Normal 0-5 [facility] Comment on above: Performed By: #### L 100.0100, L506.1000, L3410.2970, L3410.2920, L500.4050, L501.6710, L3200.1400, L501.9520 #### [facility] [address] [place], [address] Erythrocyte distribution width (RBC) [Ratio] 12.1 % Normal 11.6-14.6 [facility] Comment on above: Performed By: #### L 100.0100, L506.1000, L3410.2970, L3410.2920, L500.4050, L501.6710, L3200.1400, L501.9520 #### [facility] [address] [place], [address] Hematocrit (Bld) [Volume fraction] 44.2 % Normal 37-47 [facility] Comment on above: Performed By: #### L 100.0100, L506.1000, L3410.2970, L3410.2920, L500.4050, L501.6710, L3200.1400, L501.9520 #### [facility] [address] [place], [address] Hemoglobin (Bld) [Mass/Vol] 14.1 g/dL Normal 12.0-15.0 [facility] Comment on above: Performed By: #### L 100.0100, L506.1000, L3410.2970, L3410.2920, L500.4050, L501.6710, L3200.1400, L501.9520 #### [facility] [address] [place], [address] IG% 0.100 Normal 0.0-0.9 [facility] Comment on above: Result Comment: IG% - Immature Granulocytes (promyelocytes, myelocytes and metamyelocytes) > 1% indicates that a LEFT SHIFT is Present. Performed By: #### L 100.0100, L506.1000, L3410.2970, L3410.2920, L500.4050, L501.6710, L3200.1400, L501.9520 #### [facility] [address] [place], [address] Lymphocytes/100 WBC (Bld) 27.5 % Normal 19-41 [facility] Comment on above: Performed By: #### L 100.0100, L506.1000, L3410.2970, L3410.2920, L500.4050, L501.6710, L3200.1400, L501.9520 #### [facility] [address] [place], [address] MCH (RBC) [Entitic mass] 29.8 pg Normal 27.0-32.0 [facility] Comment on above: Performed By: #### L 100.0100, L506.1000, L3410.2970, L3410.2920, L500.4050, L501.6710, L3200.1400, L501.9520 #### [facility] [address] [place], [address] MCHC (RBC) [Mass/Vol] 31.9 g/dL Low 32-36 [facility] Comment on above: Performed By: #### L 100.0100, L506.1000, L3410.2970, L3410.2920, L500.4050, L501.6710, L3200.1400, L501.9520 #### [facility] [address] [place], [address] MCV (RBC) [Entitic vol] 93.4 fL Normal 81-99 [facility] Comment on above: Performed By: #### L 100.0100, L506.1000, L3410.2970, L3410.2920, L500.4050, L501.6710, L3200.1400, L501.9520 #### [facility] [address] [place], [address] Monocytes/100 WBC (Bld) 6.3 % Normal 0-10 [facility] Comment on above: Performed By: #### L 100.0100, L506.1000, L3410.2970, L3410.2920, L500.4050, L501.6710, L3200.1400, L501.9520 #### [facility] [address] [place], [address] Neutrophils/100 WBC (Bld) 64.2 % Normal 47-70 [facility] Comment on above: Performed By: #### L 100.0100, L506.1000, L3410.2970, L3410.2920, L500.4050, L501.6710, L3200.1400, L501.9520 #### [facility] [address] [place], [address] Nucleated RBC (Bld) [#/Vol] 0 10*3/uL Normal 0-5 [facility] Comment on above: Performed By: #### L 100.0100, L506.1000, L3410.2970, L3410.2920, L500.4050, L501.6710, L3200.1400, L501.9520 #### [facility] [address] [place], [address] Platelet mean volume (Bld) [Entitic vol] 12.1 fL High 6.2-12.0 [facility] Comment on above: Performed By: #### L 100.0100, L506.1000, L3410.2970, L3410.2920, L500.4050, L501.6710, L3200.1400, L501.9520 #### [facility] [address] [place], [address] Platelets (Bld) [#/Vol] 199 10*3/uL Normal 150-450 [facility] Comment on above: Performed By: #### L 100.0100, L506.1000, L3410.2970, L3410.2920, L500.4050, L501.6710, L3200.1400, L501.9520 #### [facility] [address] [place], [address] RBC (Bld) [#/Vol] 4.73 10*6/uL Normal 4.2-5.4 [facility] Comment on above: Performed By: #### L 100.0100, L506.1000, L3410.2970, L3410.2920, L500.4050, L501.6710, L3200.1400, L501.9520 #### [facility] [address] [place], [address] RDW SD 41.9 fl Normal 35.1-43.9 [facility] Comment on above: Performed By: #### L 100.0100, L506.1000, L3410.2970, L3410.2920, L500.4050, L501.6710, L3200.1400, L501.9520 #### [facility] [address] [place], [place], [id number] (940) WBC (Bld) [#/Vol] 7.3 10*3/uL Normal 4.4-11.0 [facility] Comment on above: Performed By: #### L 100.0100, L506.1000, L3410.2970, L3410.2920, L500.4050, L501.6710, L3200.1400, L501.9520 #### [facility] [address] [place], [place], [id number] (868) CRPon 07-09-2024 C-REACTIVE PROT < 2.90 Normal 0.0-3.0 [facility] Comment on above: Result Comment: C-Re active Protein (CRP) provides useful information for the diagnosis, therapy and monitoring of inflammatory processes and associated diseases. For the evaluation of Relative Risk for Cardiovascular Disease, a High Sensitivity CRP (HSCRP) should be ordered. Performed By: #### L 100.0100, L506.1000, L3410.2970, L3410.2920, L500.4050, L501.6710, L3200.1400, L501.9520 ####[facility] [address] [place], [place], [id number] Carbon dioxide measurementon 07-09-2024 CO2 [Moles/Vol] 25.0 mmol/L 21.0-32.0 [facility] Chloride measurementon 07-09 Chloride [Moles/Vol] 107 mmol/L 98-107 [facility] Comprehensive Metabolic Prof ilon 07-09-2024 Albumin [Mass/Vol] 4.3 g/dL Normal 3.2-5.0 [facility] Comment on above: Performed By: #### L 100.0100, L506.1000, L3410.2970, L3410.2920, L500.4050, L501.6710, L3200.1400, L501.9520 ####[facility] [address] [place], [address] Albumin/Globulin [Mass ratio] 1.2 {ratio} Normal 0.9-2.4 [facility] Comment on above: Performed By: #### L 100.0100, L506.1000, L3410.2970, L3410.2920, L500.4050, L501.6710, L3200.1400, L501.9520 ####[facility] [address] [place], [address] ALK P 55 U/L Normal 45-117 [facility] Comment on above: Performed By: #### L 100.0100, L506.1000, L3410.2970, L3410.2920, L500.4050, L501.6710, L3200.1400, L501.9520 ####[facility] [address] [place], [address] ALT [Catalytic activity/Vol] 16 U/L Normal 13-56 [facility] Comment on above: Performed By: #### L 100.0100, L506.1000, L3410.2970, L3410.2920, L500.4050, L501.6710, L3200.1400, L501.9520 ####[facility] [address] [place], [address] AST [Catalytic activity/Vol] 17 U/L Normal 15-37 [facility] Comment on above: Performed By: #### L 100.0100, L506.1000, L3410.2970, L3410.2920, L500.4050, L501.6710, L3200.1400, L501.9520 ####[facility] [address] [place], [address] Bilirubin [Mass/Vol] 0.50 mg/dL Normal 0.20-1.00 [facility] Comment on above: Result Comment: For patients on eltrombopag therapy, use of Dimension [place] TBIL is not recommended. Performed By: #### L 100.0100, L506.1000, L3410.2970, L3410.2920, L500.4050, L501.6710, L3200.1400, L501.9520 ####[facility] [address] [place], [address] BUN/CRE 19.3 RATIO Normal 10-20 [facility] Comment on above: Performed By: #### L 100.0100, L506.1000, L3410.2970, L3410.2920, L500.4050, L501.6710, L3200.1400, L501.9520 ####[facility] [address] [place], [place], [id number] CA,Total 9.6 mg/dL Normal 8.5-10.1 [facility] Comment on above: Performed By: #### L 100.0100, L506.1000, L3410.2970, L3410.2920, L500.4050, L501.6710, L3200.1400, L501.9520 ####[facility] [address] [place], [address] Chloride [Moles/Vol] 107 mmol/L Normal 98-107 [facility] Comment on above: Performed By: #### L 100.0100, L506.1000, L3410.2970, L3410.2920, L500.4050, L501.6710, L3200.1400, L501.9520 ####[facility] [address] [place], [address] CO2 [Moles/Vol] 25.0 mmol/L Normal 21.0-32.0 [facility] Comment on above: Performed By: #### L 100.0100, L506.1000, L3410.2970, L3410.2920, L500.4050, L501.6710, L3200.1400, L501.9520 ####[facility] [address] [place], [address] Creatinine [Mass/Vol] 1.09 mg/dL High 0.55-1.02 [facility] Comment on above: Result Comment: The validity of the calculated GFR GFRAA in patients over 70 years has not been determined. Clinical correlation is essential. Performed By: #### L 100.0100, L506.1000, L3410.2970, L3410.2920, L500.4050, L501.6710, L3200.1400, L501.9520 ####[facility] [address] [place], [address] EST GFR - AA 83 mL/min Normal >60 [facility] Comment on above: Result Comment: Afri can Croatian GFR Calc Performed By: #### L 100.0100, L506.1000, L3410.2970, L3410.2920, L500.4050, L501.6710, L3200.1400, L501.9520 ####[facility] [address] [place], [address] GAP 8 Normal 5-15 [facility] Comment on above: Performed By: #### L 100.0100, L506.1000, L3410.2970, L3410.2920, L500.4050, L501.6710, L3200.1400, L501.9520 ####[facility] [address] [place], [address] GFR/1.73 sq M.predicted among non-blacks MDRD (S/P/Bld) [Vol rate/Area] 69 mL/min/{1.73_m2} Normal >60 [facility] Comment on above: Result Comment: Non- GFR Calc Performed By: #### L 100.0100, L506.1000, L3410.2970, L3410.2920, L500.4050, L501.6710, L3200.1400, L501.9520 ####[facility] [address] [place], [address] Globulin (S) [Mass/Vol] 3.5 g/dL Normal 2.2-4.2 [facility] Comment on above: Performed By: #### L 100.0100, L506.1000, L3410.2970, L3410.2920, L500.4050, L501.6710, L3200.1400, L501.9520 ####[facility] [address] [place], [address] Glucose [Mass/Vol] 105 mg/dL Normal 74-106 [facility] Comment on above: Result Comment: Fast ing Glucose result from 100 to 125 mg/dL suggests IMPAIRED HOMEOSTASIS per A.D.A. criteria. Performed By: #### L 100.0100, L506.1000, L3410.2970, L3410.2920, L500.4050, L501.6710, L3200.1400, L501.9520 ####[facility] [address] [place], [address] Potassium [Moles/Vol] 4.2 mmol/L Normal 3.5-5.1 [facility] Comment on above: Performed By: #### L 100.0100, L506.1000, L3410.2970, L3410.2920, L500.4050, L501.6710, L3200.1400, L501.9520 ####[facility] [address] [place], [address] Sodium [Moles/Vol] 140 mmol/L Normal 136-145 [facility] Comment on above: Performed By: #### L 100.0100, L506.1000, L3410.2970, L3410.2920, L500.4050, L501.6710, L3200.1400, L501.9520 ####[facility] [address] [place], [address] T PROT 7.8 g/dL Normal 6.4-8.2 [facility] Comment on above: Performed By: #### L 100.0100, L506.1000, L3410.2970, L3410.2920, L500.4050, L501.6710, L3200.1400, L501.9520 ####[facility] [address] [place], [address] Urea nitrogen [Mass/Vol] 21 mg/dL High 7-18 [facility] Comment on above: Performed By: #### L 100.0100, L506.1000, L3410.2970, L3410.2920, L500.4050, L501.6710, L3200.1400, L501.9520 ####[facility] [address] [place], [address] Eosinophil percentageon 12-0 Eosinophils/100 WBC (Bld) 1.1 % 0-5 [facility] Erythrocyte distribution wid th ratioon 07-09-2024 Erythrocyte distribution width (RBC) [Ratio] 12.1 % 11.6-14.6 [facility] Erythrocyte distribution wid th standard deviationon 07-09-2024 Erythrocyte distribution width (RBC) [Entitic vol] 41.9 fL 35.1-43.9 [facility] Estimated glomerular filtrat ion rate (GFR) Americanon 07-09-2024 Estimated GFR (MDRD) Amer 83 mL/min >60 [facility] Comment on above: GFR Calc Glomerular filtration rate ( GFR) estimationon 07-09-2024 Estimated GFR (MDRD) Non-Af Amer 69 mL/min >60 [facility] Comment on above: Non- GFR Calc Glucose measurementon 2023 Glucose [Mass/Vol] 105 mg/dL 74-106 [facility] Comment on above: Fasting Glucose resu lt from 100 to 125 mg/dL suggests IMPAIRED HOMEOSTASIS per A.D.A. criteria. Hematocrit Auto (Bld) [Volum e fraction]on 07-09-2024 Hematocrit (Bld) [Volume fraction] 44.2 % 37-47 [facility] Hemoglobin measurementon Hemoglobin (Bld) [Mass/Vol] 14.1 g/dL 12.0-15.0 [facility] IgA [Mass/Vol]on 07-09-2024 Immunoglobulin A 81 mg/dL Low 87-352 [facility] Comment on above: Performed at: [facility] [place] [id number] Director: Terrance Barrett PhD, Phone: [phone] Immature granulocytes/100 WB C Auto (Bld)on 07-09-2024 Immature granulocytes/100 WBC (Bld) 0.100 % 0.0-0.9 [facility] Comment on above: IG% - Immature Granu locytes (promyelocytes, myelocytes and metamyelocytes) > 1% indicates that a LEFT SHIFT is Present. Laboratory - Chemistry and C hemistry - challengeon 07-09-2024 AST [Catalytic activity/Vol] 17 U/L 15-37 [facility] Lymphocytes Auto (Unsp spec) [#/Vol]on 07-09-2024 Lymphocytes (Bld) [#/Vol] 2.00 10*3/uL 0.83-4.51 [facility] Lymphocytes/100 WBC Auto (Un sp spec)on 07-09-2024 Lymphocytes/100 WBC (Bld) 27.5 % 19-41 [facility] MCV (mean corpuscular volume ) determinationon 07-09-2024 MCV (RBC) [Entitic vol] 93.4 fL 81-99 [facility] Mean corpuscular hemoglobin (MCH) determinationon 07-09-2024 MCH (RBC) [Entitic mass] 29.8 pg 27.0-32.0 [facility] Mean corpuscular hemoglobin concentration (MCHC) determinationon 07-09-2024 MCHC (RBC) [Mass/Vol] 31.9 g/dL Low 32-36 [facility] Mean platelet volume determi nationon 07-09-2024 Platelet mean volume (Bld) [Entitic vol] 12.1 fL High 6.2-12.0 [facility] Monocyte percentageon 2023 Monocytes/100 WBC (Bld) 6.3 % 0-10 [facility] Neutrophil percentageon 12- Neutrophils/100 WBC (Bld) 64.2 % 47-70 [facility] No Panel Informationon 07-09 Tissue Transglutaminase IgG Ab 3 U/mL 0-5 [facility] Comment on above: Negative 0 - 5 Weak Positive 6 - 9 Positive >9 Nucleated red blood cell per centageon 07-09-2024 Nucleated RBC/100 WBC (Bld) [Ratio] 0 % 0-5 [facility] Platelet counton 07-09-2024 Platelets (Bld) [#/Vol] 199 10*3/uL 150-450 [facility] Potassium measurementon Potassium [Moles/Vol] 4.2 mmol/L 3.5-5.1 [facility] RBC Auto (Bld) [#/Vol]on RBC (Bld) [#/Vol] 4.73 10*6/uL 4.2-5.4 [facility] Serum anion gap measuremento n 07-09-2024 Anion gap [Moles/Vol] 8 mmol/L 5-15 [facility] Serum globulin measurementon 07-09-2024 Globulin (S) [Mass/Vol] 3.5 g/dL 2.2-4.2 [facility] Serum or plasma alanine hutson otransferase (ALT) measurementon 07-09-2024 ALT [Catalytic activity/Vol] 16 U/L 13-56 [facility] Serum or plasma albumin parveen urement (mass/volume)on 07-09-2024 Albumin [Mass/Vol] 4.3 g/dL 3.2-5.0 [facility] Serum or plasma alkaline amanda sphatase measurementon 07-09-2024 ALP [Catalytic activity/Vol] 55 U/L 45-117 [facility] Serum or plasma calcium parveen urement (mass/volume)on 07-09-2024 Calcium [Mass/Vol] 9.6 mg/dL 8.5-10.1 [facility] Serum or plasma creatinine m easurement (mass/volume)on 07-09-2024 Creatinine [Mass/Vol] 1.09 mg/dL High 0.55-1.02 [facility] Comment on above: The validity of the calculated GFR & GFRAA in patients over 70 years has not been determined. Clinical correlation is essential. Serum or plasma urea nitroge n measurement (mass/volume)on 07-09-2024 Urea nitrogen [Mass/Vol] 21 mg/dL High 7-18 [facility] Sodium levelon 07-09-2024 Sodium [Moles/Vol] 140 mmol/L 136-145 [facility] TSH Qnon 07-09-2024 Thyroid Stimulating Hormone (TSH) 0.846 uIU/mL 0.358-3.740 [facility] Thyroid Stim Hormone (TSH)on 07-09-2024 TSH 0.846 uIU/mL Normal 0.358-3.740 [facility] Comment on above: Performed By: #### L 100.0100, L506.1000, L3410.2970, L3410.2920, L500.4050, L501.6710, L3200.1400, L501.9520 ####[facility] [address] [place], [place], [id number] Total proteinon 07-09-2024 Protein [Mass/Vol] 7.8 g/dL 6.4-8.2 [facility] Vitamin D,25 Hydroxyon 07-09 Vitamin D 25-OH 25.9 ng/mL Normal [facility] Comment on above: Result Comment: Hanna min D 25(OH) Status Range Deficiency <20 ng/mL (50nmol/L) Insufficiency 20 - 30 ng/mL (50 - 75 nmol/L) Sufficiency 30 - 100 ng/mL (75 - 250 nmol/L) Toxicity >100 ng/mL (>250 nmol/L) Performed By: #### L 100.0100, L506.1000, L3410.2970, L3410.2920, L500.4050, L501.6710, L3200.1400, L501.9520 #### [facility] [address] [place], [place], [id number] White blood cell (WBC) count on 07-09-2024 WBC (Bld) [#/Vol] 7.3 10*3/uL 4.4-11.0 [facility] tTG IgA Qn (S)on 07-09-2024 Tissue Transglutaminase IgA Ab <2 U/mL 0-3 [facility] Comment on above: Negative 0 - 3 Weak Positive 4 - 10 Positive >10 Tissue Transglutaminase (tTG) has been identified as the endomysial antigen. Studies have demonstr- ated that endomysial IgA antibodies have over 99% specificity for gluten sensitive enteropathy. [facility] Cheston [facility] Imaging Services [address] [place], [place] [address] [facility] MR#: [id number] Acct: [id number] Name: JUDITH BEDOLLA Rep #: [id number] : 2005 F 18 From: Vicente Villegas MD PCP: Dr. Cam Tan MD Status: REG ER Study: [facility] Chest Date of Exam: 05/27/24 Exam# [id number] Ordering Dr: Lucas Dunham DO [id number] STUDY: X-RAY - ACUTE ABDOMINAL SERIES REASON FOR EXAM: Female, 18 years old. abd pain TECHNIQUE: Single view of the chest. Supine, and erect view(s) of the abdomen were obtained. COMPARISON: None. FINDINGS: The lungs are clear and expanded. Normal size heart. Normal mediastinum and reji. Normal visualized pulmonary arteries. Normal visualized aortic arch and descending thoracic aorta. There is a non-specific bowel gas pattern. The soft tissue structures of the abdomen and pelvis are unremarkable. Normal visualized osseous structures. RAD/[facility] Chest IMPRESSION: Normal x-ray examination of the chest, abdomen, and pelvis. Electronically Signed: Vicente Villegas MD at 8:12 EDT , CC: Dr. Cam Tan MD; Lucas Dunham DO [employer] Attendant: Signed Normal [facility] Basic Metabolic Profile (BMP )on 05-27-2024 BUN/CRE 19.6 RATIO Normal 05-25 [facility] Comment on above: Performed By: #### L 501.5200, L500.4050, L500.2500, L700.6800, L100.0100, L500.3400, L501.2450 ####[facility] [address] [place], [address] CA,Total 9.1 mg/dL Normal 8.5-10.1 [facility] Comment on above: Performed By: #### L 501.5200, L500.4050, L500.2500, L700.6800, L100.0100, L500.3400, L501.2450 ####[facility] [address] [place], [address] Chloride [Moles/Vol] 102 mmol/L Normal 98-107 [facility] Comment on above: Performed By: #### L 501.5200, L500.4050, L500.2500, L700.6800, L100.0100, L500.3400, L501.2450 ####[facility] [address] [place], [address] CO2 [Moles/Vol] 29.0 mmol/L Normal 21.0-32.0 [facility] Comment on above: Performed By: #### L 501.5200, L500.4050, L500.2500, L700.6800, L100.0100, L500.3400, L501.2450 ####[facility] [address] [place], [place], [id number] Creatinine [Mass/Vol] 1.02 mg/dL Normal 0.55-1.02 [facility] Comment on above: Result Comment: The validity of the calculated GFR GFRAA in patients over 70 years has not been determined. Clinical correlation is essential. Performed By: #### L 501.5200, L500.4050, L500.2500, L700.6800, L100.0100, L500.3400, L501.2450 ####[facility] [address] [place], [place], [id number] ECRCL 86.98 ml/min Normal [facility] Comment on above: Performed By: #### L 501.5200, L500.4050, L500.2500, L700.6800, L100.0100, L500.3400, L501.2450 ####[facility] [address] [place], [place], [id number] EST GFR - AA 90 mL/min Normal >60 [facility] Comment on above: Result Comment: Afri can Croatian GFR Calc Performed By: #### L 501.5200, L500.4050, L500.2500, L700.6800, L100.0100, L500.3400, L501.2450 ####[facility] [address] [place], [place], [id number] GAP 3 Low 5-15 [facility] Comment on above: Performed By: #### L 501.5200, L500.4050, L500.2500, L700.6800, L100.0100, L500.3400, L501.2450 ####[facility] [address] [place], [place], [id number] GFR/1.73 sq M.predicted among non-blacks MDRD (S/P/Bld) [Vol rate/Area] 74 mL/min/{1.73_m2} Normal >60 [facility] Comment on above: Result Comment: Non- GFR Calc Performed By: #### L 501.5200, L500.4050, L500.2500, L700.6800, L100.0100, L500.3400, L501.2450 ####[facility] [address] [place], [address] Glucose [Mass/Vol] 107 mg/dL High 74-106 [facility] Comment on above: Result Comment: Fast ing Glucose result from 100 to 125 mg/dL suggests IMPAIRED HOMEOSTASIS per A.D.A. criteria. Performed By: #### L 501.5200, L500.4050, L500.2500, L700.6800, L100.0100, L500.3400, L501.2450 ####[facility] [address] [place], [address] Potassium [Moles/Vol] 3.7 mmol/L Normal 3.5-5.1 [facility] Comment on above: Performed By: #### L 501.5200, L500.4050, L500.2500, L700.6800, L100.0100, L500.3400, L501.2450 ####[facility] [address] [place], [address] Sodium [Moles/Vol] 134 mmol/L Low 136-145 [facility] Comment on above: Performed By: #### L 501.5200, L500.4050, L500.2500, L700.6800, L100.0100, L500.3400, L501.2450 ####[facility] [address] [place], [address] Urea nitrogen [Mass/Vol] 20 mg/dL High 7-18 [facility] Comment on above: Performed By: #### L 501.5200, L500.4050, L500.2500, L700.6800, L100.0100, L500.3400, L501.2450 ####[facility] [address] [place], [address] CBC W/Diff, Automatedon 10-2 Absolute Lymph 0.36 X10 3/uL Low 0.83-4.51 [facility] Comment on above: Performed By: #### L 501.5200, L500.4050, L500.2500, L700.6800, L100.0100, L500.3400, L501.2450 ####[facility] [address] [place], [address] Absolute Neut 8.4 X10 3/uL High 2.0-7.7 [facility] Comment on above: Performed By: #### L 501.5200, L500.4050, L500.2500, L700.6800, L100.0100, L500.3400, L501.2450 ####[facility] [address] [place], [address] Basophils/100 WBC (Bld) 0.2 % Normal 0-1 [facility] Comment on above: Performed By: #### L 501.5200, L500.4050, L500.2500, L700.6800, L100.0100, L500.3400, L501.2450 ####[facility] [address] [place], [address] Eosinophils/100 WBC (Bld) 0.1 % Normal 0-3 [facility] Comment on above: Performed By: #### L 501.5200, L500.4050, L500.2500, L700.6800, L100.0100, L500.3400, L501.2450 ####[facility] [address] [place], [address] Erythrocyte distribution width (RBC) [Ratio] 11.8 % Normal 11.6-14.6 [facility] Comment on above: Performed By: #### L 501.5200, L500.4050, L500.2500, L700.6800, L100.0100, L500.3400, L501.2450 ####[facility] [address] [place], [address] Hematocrit (Bld) [Volume fraction] 40.4 % Normal 37-46 [facility] Comment on above: Performed By: #### L 501.5200, L500.4050, L500.2500, L700.6800, L100.0100, L500.3400, L501.2450 ####[facility] [address] [place], [address] Hemoglobin (Bld) [Mass/Vol] 13.6 g/dL Normal 12.0-15.0 [facility] Comment on above: Performed By: #### L 501.5200, L500.4050, L500.2500, L700.6800, L100.0100, L500.3400, L501.2450 ####[facility] [address] [place], [address] IG% 0.200 Normal 0.0-0.9 [facility] Comment on above: Result Comment: IG% - Immature Granulocytes (promyelocytes, myelocytes and metamyelocytes) > 1% indicates that a LEFT SHIFT is Present. Performed By: #### L 501.5200, L500.4050, L500.2500, L700.6800, L100.0100, L500.3400, L501.2450 ####[facility] [address] [place], [address] Lymphocytes/100 WBC (Bld) 3.9 % Low 25-45 [facility] Comment on above: Performed By: #### L 501.5200, L500.4050, L500.2500, L700.6800, L100.0100, L500.3400, L501.2450 ####[facility] [address] [place], [address] MCH (RBC) [Entitic mass] 30.5 pg Normal 25.0-35.0 [facility] Comment on above: Performed By: #### L 501.5200, L500.4050, L500.2500, L700.6800, L100.0100, L500.3400, L501.2450 ####[facility] [address] [place], [address] MCHC (RBC) [Mass/Vol] 33.7 g/dL Normal 32-36 [facility] Comment on above: Performed By: #### L 501.5200, L500.4050, L500.2500, L700.6800, L100.0100, L500.3400, L501.2450 ####[facility] [address] [place], [address] MCV (RBC) [Entitic vol] 90.6 fL Normal 78-96 [facility] Comment on above: Performed By: #### L 501.5200, L500.4050, L500.2500, L700.6800, L100.0100, L500.3400, L501.2450 ####[facility] [address] [place], [address] Monocytes/100 WBC (Bld) 4.6 % Normal 3-6 [facility] Comment on above: Performed By: #### L 501.5200, L500.4050, L500.2500, L700.6800, L100.0100, L500.3400, L501.2450 ####[facility] [address] [place], [address] Neutrophils/100 WBC (Bld) 91.0 % High 34-64 [facility] Comment on above: Performed By: #### L 501.5200, L500.4050, L500.2500, L700.6800, L100.0100, L500.3400, L501.2450 ####[facility] [address] [place], [address] Nucleated RBC (Bld) [#/Vol] 0 10*3/uL Normal 0-5 [facility] Comment on above: Performed By: #### L 501.5200, L500.4050, L500.2500, L700.6800, L100.0100, L500.3400, L501.2450 ####[facility] [address] [place], [address] Platelet mean volume (Bld) [Entitic vol] 10.8 fL Normal 6.2-12.0 [facility] Comment on above: Performed By: #### L 501.5200, L500.4050, L500.2500, L700.6800, L100.0100, L500.3400, L501.2450 ####[facility] [address] [place], [address] Platelets (Bld) [#/Vol] 170 10*3/uL Normal 150-450 [facility] Comment on above: Performed By: #### L 501.5200, L500.4050, L500.2500, L700.6800, L100.0100, L500.3400, L501.2450 ####[facility] [address] [place], [address] RBC (Bld) [#/Vol] 4.46 10*6/uL Normal 4.1-4.8 [facility] Comment on above: Performed By: #### L 501.5200, L500.4050, L500.2500, L700.6800, L100.0100, L500.3400, L501.2450 ####[facility] [address] [place], [address] RDW SD 38.9 fl Normal 35.1-43.9 [facility] Comment on above: Performed By: #### L 501.5200, L500.4050, L500.2500, L700.6800, L100.0100, L500.3400, L501.2450 ####[facility] [address] [place], [address] WBC (Bld) [#/Vol] 9.3 10*3/uL Normal 4.5-13.0 [facility] Comment on above: Performed By: #### L 501.5200, L500.4050, L500.2500, L700.6800, L100.0100, L500.3400, L501.2450 ####[facility] [address] [place], [address] Absolute Neut Normal 2.0-7.7 [facility] Comment on above: Result Comment: Canc elled via OM: MD Ordered Performed By: #### L 100.0100 #### [facility] [address] [place], [address] HCT Normal 37-46 [facility] Comment on above: Result Comment: Canc elled via OM: MD Ordered Performed By: #### L 100.0100 #### [facility] [address] [place], [address] HGB Normal 12.0-15.0 [facility] Comment on above: Result Comment: Canc elled via OM: MD Ordered Performed By: #### L 100.0100 #### [facility] [address] [place], [address] MCH Normal 25.0-35.0 [facility] Comment on above: Result Comment: Canc elled via OM: MD Ordered Performed By: #### L 100.0100 #### [facility] [address] [place], [address] MCHC Normal 32-36 [facility] Comment on above: Result Comment: Canc elled via OM: MD Ordered Performed By: #### L 100.0100 #### [facility] [address] [place], [address] MCV Normal 78-96 [facility] Comment on above: Result Comment: Canc elled via OM: MD Ordered Performed By: #### L 100.0100 #### [facility] [address] [place], [address] NEUT% Normal 34-64 [facility] Comment on above: Result Comment: Canc elled via OM: MD Ordered Performed By: #### L 100.0100 #### [facility] [address] [place], [address] PLT Normal 150-450 [facility] Comment on above: Result Comment: Canc elled via OM: MD Ordered Performed By: #### L 100.0100 #### [facility] [address] [place], [address] RBC Normal 4.1-4.8 [facility] Comment on above: Result Comment: Canc elled via OM: MD Ordered Performed By: #### L 100.0100 #### [facility] [address] [place], [address] RDW CV Normal 11.6-14.6 [facility] Comment on above: Result Comment: Canc elled via OM: MD Ordered Performed By: #### L 100.0100 #### [facility] [address] [place], [address] RDW SD Normal 35.1-43.9 [facility] Comment on above: Result Comment: Canc elled via OM: MD Ordered Performed By: #### L 100.0100 #### [facility] [address] [place], [address] WBC Normal 4.5-13.0 [facility] Comment on above: Result Comment: Jessica harper via OM: Ordered Performed By: #### L 100.0100 #### [facility] [address] [place], [address] Comprehensive Metabolic Prof ilon 05-27-2024 Albumin/Globulin [Mass ratio] 1.2 {ratio} Normal 0.9-2.4 [facility] Comment on above: Performed By: #### L 501.5200, L500.4050, L500.2500, L700.6800, L100.0100, L500.3400, L501.2450 ####[facility] [address] [place], [address] Emergency Department Summary on 05-27-2024 Emergency Department Summary [facility] Medical Records Department [address] [place] [address] Emergency Department Summary 05/27/24 MR#: [id number] Acct: [id number] Name: JUDITH BEDOLLA Rep #: [id number] : 2005 18 From: Lucas Dunham DO PCP: Dr. Cam Tan MD Status:DEP ER Location: ED HPI History of Present Illness Chief Complaint: Abd Pain Informant: patient and parent Narrative Narrative: Patient is an 18-year-old female with past medical history of migraine as well as recurrent abdominal pain. Father states they have seen a product operations associate and despite further workup have not come to a obvious conclusion for why she has recurrent pain. Patient states that she has had lower abdominal pain that began last night with lead to 3 bouts of vomiting. She states that she felt like she was backed up and took MiraLAX which she is done in the past to help with bowel movement but despite doing so did not have improvement of symptoms and therefore comes in for evaluation. Patient denies any known sick contacts PFSH PFS Medical History Migraines Non-smoker Home Medications ???Medication ???Instructions ???Recorded ???Last Taken ???Type ondansetron 4 mg disintegrating 4 mg PO TID PRN nausea and 05/27/24 Unknown Rx tablet vomiting #21 tabs Allergy/AdvReac Type Severity Reaction Status Date / Time No Known Allergies Allergy Verified 05/27/24 05:37 Social History Smoking Status: Never smoker alcohol intake: never ROS ROS ED Constitutional Constitutional ED: Denies chills or fever(s) Eyes Eyes: Denies blurry vision or change in vision ENT ENT ED: Denies rhinorrhea or sore throat Cardiovascular Cardiovascular: Denies chest pain Respiratory/Chest Respiratory/Chest: Denies cough or dyspnea Gastrointestinal Gastrointestinal: Reports abdominal pain, constipation, nausea and vomiting; Denies diarrhea Genitourinary Genitourinary ED: Denies dysuria, hematuria or urinary frequency Musculoskeletal Musculoskeletal: Denies back pain or myalgias Integumentary Denies rash Neurologic Neurologic: Denies headache(s) Hematologic/Lymphatic Hematologic/Lymphatic: Denies easy bleeding or easy bruising EXAM Physical Exam Const Vital Signs: 05/27/24 08:45 Temperature 98 F Pulse Rate 82 Respiratory Rate 14 Blood Pressure 103/47 L Blood Pressure Mean 65 Pulse Ox 100 Positive well nourished and well developed General Appearance ED: well developed; Negative for pallor HEENT Reports moist mucous membranes HEENT Narrative: No signs of infection noted in the posterior pharynx Eyes PERRL and EOMs intact bilaterally General Eye ED: Negative for scleral icterus Neck supple Neck Narrative: No nuchal rigidity or meningeal signs Resp normal respiratory effort and clear to auscultation bilaterally Cardio regular rate and regular rhythm Rate: other Other Details: Heart is regular rate and rhythm without murmurs rubs or gallops Radial and carotid pulses are equal and symmetric GI non-distended and no masses GI Narrative: Abdomen is soft and nondistended with hypoactive bowel sounds. There is pain with palpation diffusely across the lower abdomen without voluntary guarding or rigidity. Negative heel strike psoas and obturator signs. No pulsatile mass or fluid wave Auscultation: hypoactive bowel sounds Palpation: soft Back/Spine no CVA tenderness Extremity normal to inspection Neuro oriented x3, CN's II-XII intact bilaterally and no sensory deficits noted Sensorium / Orientation: alert Motor Exam: strength 5/5 throughout Psych mental status grossly normal Skin no rashes or lesions noted, no wounds and skin turgor normal General Skin Exam: Negative for jaundice or pallor MDM MDM MDM Narrative Medical decision making narrative: Patient arrived to the ER afebrile with stable vitals. She reported a longstanding history of recurrent abdominal pain with no obvious cause. Chart review reveals that in October of this year she presented to the ER with a similar presentation in that time had laboratory studies and a CT scan with IV contrast that revealed no obvious cause/pathology for her pain. At this time her abdomen is soft and nonsurgical but with pain in the lower abdomen it could be due to constipation versus ovarian cyst versus UTI versus complication. There is also potential for biliary colic or acute cholecystitis or acute pancreatitis and/or kidney stone. Therefore basic labs with urine sample were obtained. As her abdomen is soft and nonsurgical and she had a CT scan in October which was normal I felt no need for repeat CT scan but elected to perform an acute abdominal series. Her labs revealed no clinically significant findings her ur (more content not included)... Normal [facility] Lipaseon 05-27-2024 Lipase [Catalytic activity/Vol] 18 U/L Normal 13-75 [facility] Comment on above: Result Comment: Goyo dunham note: LIPASE revised reference range effective 22. New Lipase methodology. Expected to produce lower values than the previous assay method. NEW Reference Range: 13 - 75 U/L Performed By: #### L 501.5200, L500.4050, L500.2500, L700.6800, L100.0100, L500.3400, L501.2450 ####[facility] [address] [place], [place], [id number] Liver Profileon 05-27-2024 Albumin [Mass/Vol] 4.1 g/dL Normal 3.2-5.0 [facility] Comment on above: Performed By: #### L 501.5200, L500.4050, L500.2500, L700.6800, L100.0100, L500.3400, L501.2450 ####[facility] [address] [place], [place], [id number] ALK P 52 U/L Normal 47-119 [facility] Comment on above: Performed By: #### L 501.5200, L500.4050, L500.2500, L700.6800, L100.0100, L500.3400, L501.2450 ####[facility] [address] [place], [address] ALT [Catalytic activity/Vol] 16 U/L Normal 13-56 [facility] Comment on above: Performed By: #### L 501.5200, L500.4050, L500.2500, L700.6800, L100.0100, L500.3400, L501.2450 ####[facility] [address] [place], [address] AST [Catalytic activity/Vol] 12 U/L Low 15-37 [facility] Comment on above: Performed By: #### L 501.5200, L500.4050, L500.2500, L700.6800, L100.0100, L500.3400, L501.2450 ####[facility] [address] [place], [address] Bilirubin [Mass/Vol] 1.30 mg/dL High 0.20-1.00 [facility] Comment on above: Result Comment: For patients on eltrombopag therapy, use of Dimension [place] TBIL is not recommended. Performed By: #### L 501.5200, L500.4050, L500.2500, L700.6800, L100.0100, L500.3400, L501.2450 ####[facility] [address] [place], [address] Bilirubin.direct [Mass/Vol] 0.29 mg/dL Normal 0.00-0.30 [facility] Comment on above: Performed By: #### L 501.5200, L500.4050, L500.2500, L700.6800, L100.0100, L500.3400, L501.2450 ####[facility] [address] [place], [address] Globulin (S) [Mass/Vol] 3.4 g/dL Normal 2.2-4.2 [facility] Comment on above: Performed By: #### L 501.5200, L500.4050, L500.2500, L700.6800, L100.0100, L500.3400, L501.2450 ####[facility] [address] [place], [address] T PROT 7.5 g/dL Normal 6.4-8.2 [facility] Comment on above: Performed By: #### L 501.5200, L500.4050, L500.2500, L700.6800, L100.0100, L500.3400, L501.2450 ####[facility] [address] [place], [address] Magnesiumon 05-27-2024 Magnesium [Mass/Vol] 1.8 mg/dL Normal 1.6-2.6 [facility] Comment on above: Performed By: #### L 501.5200, L500.4050, L500.2500, L700.6800, L100.0100, L500.3400, L501.2450 ####[facility] [address] [place], [place], [id number] ,Serum,hCG Quali.on 05-27-2024 HCG, SERUM QUAL Negative Normal [facility] Comment on above: Performed By: #### L 501.5200, L500.4050, L500.2500, L700.6800, L100.0100, L500.3400, L501.2450 ####[facility] [address] [place], [address] Urinalysis, Completeon 05-27 BACTERIA RARE Normal None Seen [facility] Comment on above: Order Comment: CLEAN CATCH Performed By: #### L 400.0001 ####[facility] [address] [place], [address] EPI,SQUAMOUS 0-5 SEEN Normal 5-10 [facility] Comment on above: Order Comment: CLEAN CATCH Performed By: #### L 400.0001 ####[facility] [address] [place], [address] WBC 0-5 SEEN Normal 0-5 [facility] Comment on above: Order Comment: CLEAN CATCH Performed By: #### L 400.0001 ####[facility] [address] [place], [address] BACTERIA Normal None Seen [facility] Comment on above: Order Comment: CLEAN CATCH Result Comment: Canc elled via OM: MD Ordered Performed By: #### L 400.0001 #### [facility] [address] [place], [address] BILIRUBIN URINE Normal Negative [facility] Comment on above: Order Comment: CLEAN CATCH Result Comment: Canc elled via OM: MD Ordered Performed By: #### L 400.0001 #### [facility] [address] [place], [address] Clarity (U) Normal Clear [facility] Comment on above: Order Comment: CLEAN CATCH Result Comment: Canc elled via OM: MD Ordered Performed By: #### L 400.0001 #### [facility] [address] [place], [address] Color (U) Normal Yellow [facility] Comment on above: Order Comment: CLEAN CATCH Result Comment: Canc elled via OM: MD Ordered Performed By: #### L 400.0001 #### [facility] [address] [place], [address] EPI,SQUAMOUS Normal 5-10 [facility] Comment on above: Order Comment: CLEAN CATCH Result Comment: Canc elled via OM: MD Ordered Performed By: #### L 400.0001 #### [facility] [address] [place], [address] GLUCOSE, UR Normal Normal [facility] Comment on above: Order Comment: CLEAN CATCH Result Comment: Canc elled via OM: MD Ordered Performed By: #### L 400.0001 #### [facility] [address] [place], [address] KETONE UR Normal Negative [facility] Comment on above: Order Comment: CLEAN CATCH Result Comment: Canc elled via OM: MD Ordered Performed By: #### L 400.0001 #### [facility] [address] [place], [address] LEUK ESTERASE Normal Negative [facility] Comment on above: Order Comment: CLEAN CATCH Result Comment: Canc elled via OM: MD Ordered Performed By: #### L 400.0001 #### [facility] [address] [place], [address] Mucus Ql (Urine sed) Normal [facility] Comment on above: Order Comment: CLEAN CATCH Result Comment: Canc elled via OM: MD Ordered Performed By: #### L 400.0001 #### [facility] [address] [place], [address] Nitrite Ql (U) Normal Negative [facility] Comment on above: Order Comment: CLEAN CATCH Result Comment: Canc elled via OM: MD Ordered Performed By: #### L 400.0001 #### [facility] [address] [place], [address] OCCULT BLOOD-UR Normal Negative [facility] Comment on above: Order Comment: CLEAN CATCH Result Comment: Canc elled via OM: MD Ordered Performed By: #### L 400.0001 #### [facility] [address] [place], [address] pH UR Normal 5.0 - 8.0 [facility] Comment on above: Order Comment: CLEAN CATCH Result Comment: Canc elled via OM: MD Ordered Performed By: #### L 400.0001 #### [facility] [address] [place], [address] PROT DIPSTX Normal Negative [facility] Comment on above: Order Comment: CLEAN CATCH Result Comment: Canc elled via OM: MD Ordered Performed By: #### L 400.0001 #### [facility] [address] [place], [address] RBC Normal 0-5 [facility] Comment on above: Order Comment: CLEAN CATCH Result Comment: Canc elled via OM: MD Ordered Performed By: #### L 400.0001 #### [facility] [address] [place], [address] SP.GR. DIPSTX Normal 1.002-1.030 [facility] Comment on above: Order Comment: CLEAN CATCH Result Comment: Canc elled via OM: MD Ordered Performed By: #### L 400.0001 #### [facility] [address] [place], [address] UR Preservative Normal [facility] Comment on above: Order Comment: CLEAN CATCH Result Comment: Canc elled via OM: MD Ordered Performed By: #### L 400.0001 #### [facility] [address] [place], [address] UROBILI Normal Normal [facility] Comment on above: Order Comment: CLEAN CATCH Result Comment: Canc elled via OM: MD Ordered Performed By: #### L 400.0001 #### [facility] [address] [place], [address] WBC Normal 0-5 [facility] Comment on above: Order Comment: CLEAN CATCH Result Comment: Canc elled via OM: MD Ordered Performed By: #### L 400.0001 #### [facility] [address] [place], [address] Mucus Ql (Urine sed) 0 SEEN Normal [facility] Comment on above: Order Comment: CLEAN CATCH Performed By: #### L 400.0001 ####[facility] [address] [place], [place], [id number] RBC 0 SEEN Normal 0-5 [facility] Comment on above: Order Comment: CLEAN CATCH Performed By: #### L 400.0001 ####[facility] [address] [place], [place], [id number] Absolute lymphocyte countOrd ered By: Jimmy Hale on 10-28-2023 Lymphocytes Auto (Unsp spec) [#/Vol] 1.75 10*3/uL 0.83-4.51 [facility] Automated lymphocyte count a s percentage of total leukocytesOrdered By: Jimmy Hale on 10-28-2023 Lymphocytes/100 WBC Auto (Unsp spec) 20.2 % 25-45 [facility] Basophil percentageOrdered B y: Jimmy Hale on 10-28-2023 Basophil percentage 0 SEEN /hpf 0-5 [facility] Basophils/100 WBC (Bld) 0.5 % 0-1 [facility] Bilirubin [Mass/Vol] 0.90 mg/dL 0.20-1.00 [facility] Comment on above: For patients on eltr ombopag therapy, use of Dimension [place] TBIL is not recommended. Chloride [Moles/Vol] 108 mmol/L 98-107 [facility] Eosinophils/100 WBC (Bld) 1.4 % 0-3 [facility] Glucose [Mass/Vol] 103 mg/dL 74-106 [facility] Comment on above: Fasting Glucose resu lt from 100 to 125 mg/dL suggests IMPAIRED HOMEOSTASIS per A.D.A. criteria. Hemoglobin (Bld) [Mass/Vol] 13.5 g/dL 12.0-15.0 [facility] Monocytes/100 WBC (Bld) 10.4 % 3-6 [facility] Neutrophils (Bld) [#/Vol] 5.9 10*3/uL 2.0-7.7 [facility] Neutrophils/100 WBC (Bld) 67.4 % 34-64 [facility] Potassium [Moles/Vol] 3.6 mmol/L 3.5-5.1 [facility] Protein [Mass/Vol] 7.5 g/dL 6.4-8.2 [facility] Sodium [Moles/Vol] 140 mmol/L 136-145 [facility] WBC (Bld) [#/Vol] 8.7 10*3/uL 4.5-13.0 [facility] Bilirubin Test strip Ql (U)O rdered By: Jimmy Hale on 10-28-2023 Bilirubin Ql (U) Negative Negative [facility] Determination of erythrocyte mean corpuscular volume (MCV)Ordered By: Jimmy Hale on 10-28-2023 MCV (RBC) [Entitic vol] 92.9 fL 78-96 [facility] Erythrocyte distribution wid th ratioOrdered By: Jimmy Hale on 10-28-2023 Erythrocyte distribution width (RBC) [Ratio] 11.9 % 11.6-14.6 [facility] Erythrocyte distribution wid th standard deviationOrdered By: Jimmy Hale on 10-28-2023 Erythrocyte distribution width (RBC) [Entitic vol] 40.8 fL 35.1-43.9 [facility] Hematocrit Auto (Bld) [Volum e fraction]Ordered By: Jimmy Hale on 10-28-2023 Hematocrit (Bld) [Volume fraction] 40.6 % 37-46 [facility] Immature granulocytes/100 WB C Auto (Bld)Ordered By: Jimmy aHle on 10-28-2023 Immature granulocytes/100 WBC (Bld) 0.100 % 0.0-0.9 [facility] Comment on above: IG% - Immature Granu locytes (promyelocytes, myelocytes and metamyelocytes) > 1% indicates that a LEFT SHIFT is Present. Ketones Test strip Ql (U)Ord ered By: Jimmy Hale on 10-28-2023 Ketones Ql (U) Negative Negative [facility] Laboratory - Chemistry and C hemistry - challengeOrdered By: Jimmy Hale on 10-28-2023 Albumin/Globulin [Mass ratio] 1.3 {ratio} 0.9-2.4 [facility] ALP [Catalytic activity/Vol] 60 U/L 47-119 [facility] ALT [Catalytic activity/Vol] 36 U/L 13-56 [facility] CO2 [Moles/Vol] 27.0 mmol/L 21.0-32.0 [facility] Globulin (S) [Mass/Vol] 3.3 g/dL 2.2-4.2 [facility] Lipase [Catalytic activity/Vol] 25 U/L 13-75 [facility] Comment on above: Please note:LIPASE r evised reference range effective 22. New Lipase methodology. Expected to produce lower values than the previous assay method. NEW Reference Range: 13 - 75 U/L Urea nitrogen/Creatinine [Mass ratio] 14.2 mg/mg 10-20 [facility] Laboratory - Hematology and Cell countsOrdered By: Jimmy Hale on 10-28-2023 MCH (RBC) [Entitic mass] 30.9 pg 25.0-35.0 [facility] MCHC (RBC) [Mass/Vol] 33.3 g/dL 32-36 [facility] Nucleated RBC/100 WBC (Bld) [Ratio] 0 % 0-5 [facility] Platelet mean volume (Bld) [Entitic vol] 11.4 fL 6.2-12.0 [facility] Platelets (Bld) [#/Vol] 176 10*3/uL 150-450 [facility] Mucus LM Ql (Urine sed)Order ed By: Jimmy Hale on 10-28-2023 Mucus Ql (Urine sed) 0 SEEN /hpf [facility] Nitrite Test strip Ql (U)Ord ered By: Jimmy Hale on 10-28-2023 Nitrite Ql (U) Negative Negative [facility] No Panel InformationOrdered By: Jimmy Hale on 10-28-2023 Estimated Creatinine Clearance Calc 96.44 ml/min [facility] Estimated GFR (MDRD) Amer 102 mL/min >60 [facility] Comment on above: GFR Calc Estimated GFR (MDRD) Non-Af Amer 84 mL/min >60 [facility] Comment on above: Non- GFR Calc Urine RBC 0-5 SEEN /hpf 0-5 [facility] Protein Test strip Ql (U)Ord ered By: Jimmy Hale on 10-28-2023 Protein Ql (U) Negative Negative [facility] RBC Auto (Bld) [#/Vol]Ordere d By: Jimmy Hale on 10-28-2023 RBC (Bld) [#/Vol] 4.37 10*6/uL 4.1-4.8 [facility] Serum or plasma calcium parveen urement (mass/volume)Ordered By: Jimmy Hale on 10-28-2023 Calcium [Mass/Vol] 8.8 mg/dL 8.5-10.1 [facility] Serum or plasma choriogonado tropin detectionOrdered By: Jimmy Hale on 10-28-2023 HCG ( test) Ql Negative [facility] Serum or plasma creatinine m easurement (mass/volume)Ordered By: Jimmy Hale on 10-28-2023 Creatinine [Mass/Vol] 0.92 mg/dL 0.55-1.02 [facility] Comment on above: The validity of the calculated GFR & GFRAA in patients over 70 years has not been determined. Clinical correlation is essential. Serum or plasma urea nitroge n measurement (mass/volume)Ordered By: Jimmy Hale on 10-28-2023 Urea nitrogen [Mass/Vol] 13 mg/dL 7-18 [facility] Squamous epithelial cells de tection in urine sediment by light microscopyOrdered By: Jimmy Hale on 10-28-2023 Epithelial cells.squamous LM Ql (Urine sed) 0 SEEN /hpf 5-10 [facility] Thin prep Papanicolaou smear with manual screeningOrdered By: Jimmy Hale on 10-28-2023 Thin prep Papanicolaou smear with manual screening 4.2 g/dL 3.2-5.0 [facility] Thin prep Papanicolaou smear with manual screening 65 U/L 15-37 [facility] Thin prep Papanicolaou smear with manual screening 5 5-15 [facility] Urine blood detectionOrdered By: Jimmy Hale on 10-28-2023 RBC Ql (U) 150 /ul Negative [facility] Urine clarityOrdered By: Yanira Hale on 10-28-2023 Clarity (U) Clear Clear [facility] Urine color determinationOrd ered By: Jimmy Hale on 10-28-2023 Color (U) Yellow Yellow [facility] Urine glucose detectionOrder ed By: Jimmy Hale on 10-28-2023 Glucose Ql (U) Normal mg/dl Normal [facility] Urine leukocyte esterase det ection by dipstickOrdered By: Jimmy Hale on 10-28-2023 Leukocyte esterase Test strip Ql (U) Negative Negative [facility] Urine pHOrdered By: Jimmy starks on 10-28-2023 pH (U) 6.5 [pH] 5.0 - 8.0 [facility] Urine sediment bacteria coun t by microscopy (number/high power field)Ordered By: Jimmy Hale on 10-28-2023 Bacteria LM.HPF (Urine sed) [#/Area] 0 /[HPF] None Seen [facility] Urine specific gravity measu rementOrdered By: Jimmy Hale on 10-28-2023 Specific gravity (U) [Rel density] 1.015 1.002-1.030 [facility] Urine urobilinogen measureme ntOrdered By: Jimmy Hale on 10-28-2023 Urobilinogen Ql (U) Normal mg/dl Normal [facility] CBC W Auto Differential pane l (Bld)on 06-29-2023 Basophils (Bld) [#/Vol] 0.05 10*3/uL <0.11 k/uL [facility] Basophils/100 WBC (Bld) 1.0 % [facility] Differential cell count method Nom (Bld) Auto [facility] Eosinophils (Bld) [#/Vol] 0.15 10*3/uL <0.46 k/uL [facility] Eosinophils/100 WBC (Bld) 3.1 % [facility] Erythrocyte distribution width (RBC) [Ratio] 12.2 % 11.5 - 15.0 % [facility] Hematocrit (Bld) [Volume fraction] 42.5 % 36.0 - 46.0 % [facility] Hemoglobin (Bld) [Mass/Vol] 13.6 g/dL 11.5 - 15.5 g/dL [facility] Immature granulocytes (Bld) [#/Vol] <0.10 k/uL [facility] Immature granulocytes/100 WBC (Bld) 0.2 % [facility] Lymphocytes (Bld) [#/Vol] 1.50 10*3/uL 1.00 - 4.00 k/uL [facility] Lymphocytes/100 WBC (Bld) 31.3 % [facility] MCH (RBC) [Entitic mass] 29.7 pg 26. 0 - 34.0 pg [facility] MCHC (RBC) [Mass/Vol] 32.0 g/dL 30.5 - 36.0 g/dL [facility] MCV (RBC) [Entitic vol] 92.8 fL 80.0 - 100.0 fL [facility] Monocytes (Bld) [#/Vol] 0.47 10*3/uL <0.87 k/uL [facility] Monocytes/100 WBC (Bld) 9.8 % [facility] Neutrophils (Bld) [#/Vol] 2.61 10*3/uL 1.45 - 7.50 k/uL [facility] Neutrophils/100 WBC (Bld) 54.6 % [facility] Nucleated RBC (Bld) [#/Vol] <0.01 k/uL [facility] Nucleated RBC/100 WBC (Bld) [Ratio] 0.0 /100 WBC [facility] Platelet mean volume (Bld) [Entitic vol] 11.3 fL 9.0 - 12.7 fL [facility] Platelets (Bld) [#/Vol] 187 10*3/uL 150 - 400 k/uL [facility] RBC (Bld) [#/Vol] 4.58 10*6/uL 3.90 - 5.2 0 m/uL [facility] WBC (Bld) [#/Vol] 4.79 10*3/uL 3.70 - 11. 00 k/uL [facility] Vital Signs Date Time Vital Sign Value Performing Clinician Facility 01-27-2025 19:33-0400 Body temperature 97.81 [degF] Bianka Maciel APRN.MACHINE TRIMMER Work Phone: [facility] 01-27-2025 19:33-0400 Body weight 68.2 kg Bianka Maciel APRN.CNP Work Phone: [facility] 01-27-2025 19:33-0400 Diastolic blood pressure 59 mm[Hg] Bianka Maciel APRN.CNP Work Phone: [facility] 01-27-2025 19:33-0400 Heart rate 74 /min Bianka Maciel APRN.MACHINE TRIMMER Work Phone: [facility] 01-27-2025 19:33-0400 Respiratory rate 18 /min Bianka Maciel APRN.MACHINE TRIMMER Work Phone: [facility] 01-27-2025 19:33-0400 SaO2% (BldA) [Mass fraction] 99 % Bianka Maciel APRN.MACHINE TRIMMER Work Phone: [facility] 01-27-2025 19:33-0400 Systolic blood pressure 113 mm[Hg] Bianka Maciel APRN.MACHINE TRIMMER Work Phone: [facility] 01-22-2025 10:45-0400 Body height 170.2 cm Tarun Farris MD Work Phone: [facility] 01-22-2025 10:45-0400 Body mass index (BMI) [Ratio] 23.34 kg/m2 Tarun Farris MD Work Phone: [facility] 01-22-2025 10:45-0400 Body temperature 97.59 [degF] Tarun Farris MD Work Phone: [facility] 01-22-2025 10:45-0400 Body weight 67.59 kg Tarun Farris MD Work Phone: [facility] 01-22-2025 10:45-0400 Diastolic blood pressure 78 mm[Hg] Tarun Farris MD Work Phone: [facility] 01-22-2025 10:45-0400 Heart rate 82 /min Tarun Farris MD Work Phone: [facility] 01-22-2025 10:45-0400 Systolic blood pressure 119 mm[Hg] Tarun Farris MD Work Phone: [facility] 01-09-2025 13:10-0400 Body temperature 98.2 [degF] Tarun Farris MD Work Phone: [facility] 01-09-2025 13:10-0400 Diastolic blood pressure 64 mm[Hg] Tarun Farris MD Work Phone: [facility] 01-09-2025 13:10-0400 Heart rate 63 /min Tarun Farris MD Work Phone: [facility] 01-09-2025 13:10-0400 Respiratory rate 16 /min Tarun Farris MD Work Phone: [facility] 01-09-2025 13:10-0400 SaO2% (BldA) [Mass fraction] 98 % Tarun Farris MD Work Phone: [facility] 01-09-2025 13:10-0400 Systolic blood pressure 102 mm[Hg] Tarun Farris MD Work Phone: [facility] 01-09-2025 09:36-0400 Body height 170.2 cm Tarun Farris MD Work Phone: [facility] 01-09-2025 09:36-0400 Body mass index (BMI) [Ratio] 24.52 kg/m2 Tarun Farris MD Work Phone: [facility] 01-09-2025 09:36-0400 Body weight 71 kg Tarun Farris MD Work Phone: [facility] 01-05-2025 11:43-0400 Body height 170.2 cm Tarun Farris MD Work Phone: [facility] 01-05-2025 11:43-0400 Body mass index (BMI) [Ratio] 24.03 kg/m2 Tarun Farris MD Work Phone: [facility] 01-05-2025 11:43-0400 Body temperature 97.39 [degF] Tarun Farris MD Work Phone: [facility] 01-05-2025 11:43-0400 Body weight 69.58 kg Tarun Farris MD Work Phone: [facility] 01-05-2025 11:43-0400 Diastolic blood pressure 68 mm[Hg] Tarun Farris MD Work Phone: [facility] 01-05-2025 11:43-0400 Heart rate 92 /min Tarun Farris MD Work Phone: [facility] 01-05-2025 11:43-0400 Systolic blood pressure 112 mm[Hg] Tarun Farris MD Work Phone: [facility] 12-02-2024 08:31-0400 Body weight 70.67 kg Sowmya Maciel MD Work Phone: [facility] 12-02-2024 08:31-0400 Diastolic blood pressure 68 mm[Hg] Sowmya Maciel MD Work Phone: [facility] 12-02-2024 08:31-0400 Systolic blood pressure 100 mm[Hg] Sowmya Maciel MD Work Phone: [facility] 10-28-2023 21:24-0400 Body temperature 98.1 [degF] [facility] 10-28-2023 21:24-0400 Diastolic blood pressure 43 mm[Hg] [facility] 10-28-2023 21:24-0400 Heart rate 77 /min [facility] 10-28-2023 21:24-0400 Respiratory rate 18 /min [facility] 10-28-2023 21:24-0400 SaO2% (BldA) [Mass fraction] 98 % [facility] 10-28-2023 21:24-0400 Systolic blood pressure 113 mm[Hg] [facility] 10-28-2023 19:38-0400 Body height 170.18 cm [facility] 10-28-2023 19:38-0400 Body mass index (BMI) [Percentile] Per age and sex 74.6 % [facility] 10-28-2023 19:38-0400 Body mass index (BMI) [Ratio] 23.9 kg/m2 [facility] 10-28-2023 19:38-0400 Body weight 69.35 kg [facility] 06-29-2023 08:28-0500 Body weight 68.31 kg Deborah Fletcher APRN.CNP Work Phone: [facility] 06-29-2023 08:28-0500 Diastolic blood pressure 60 mm[Hg] Deborah Dothan DIRECTOR [employer]MACHINE TRIMMER Work Phone: [facility] 06-29-2023 08:28-0500 Systolic blood pressure 90 mm[Hg] Deborah Justine DIRECTOR [employer].MACHINE TRIMMER Work Phone: [facility] 02-08-2023 11:28-0400 Body height 168.9 cm Cam Tan MD Work Phone: [facility] 02-08-2023 11:28-0400 Body mass index (BMI) [Percentile] Per age and sex 72.49 % Cam Tan MD Work Phone: [facility] 02-08-2023 11:28-0400 Body temperature 98.29 [degF] Cam Tan MD Work Phone: [facility] 02-08-2023 11:28-0400 Body weight 66.59 kg Cam Tan MD Work Phone: [facility] 02-08-2023 11:28-0400 Diastolic blood pressure 66 mm[Hg] Cam Tan MD Work Phone: [facility] 02-08-2023 11:28-0400 Heart rate 60 /min Cam Tan MD Work Phone: [facility] 02-08-2023 11:28-0400 Respiratory rate 16 /min Cam Tan MD Work Phone: [facility] 02-08-2023 11:28-0400 Systolic blood pressure 102 mm[Hg] Cam Tan MD Work Phone: [facility] 02-07-2022 10:02-0400 Body height 169.5 cm Cam Tan MD Work Phone: [facility] 02-07-2022 10:02-0400 Body mass index (BMI) [Percentile] Per age and sex 63.47 % Cam Tan MD Work Phone: [facility] 02-07-2022 10:02-0400 Body temperature 98.6 [degF] Cam Tan MD Work Phone: [facility] 02-07-2022 10:02-0400 Body weight 62.96 kg Cam Tan MD Work Phone: [facility] 02-07-2022 10:02-0400 Diastolic blood pressure 64 mm[Hg] Cam Tan MD Work Phone: [facility] 02-07-2022 10:02-0400 Heart rate 60 /min Cam Tan MD Work Phone: [facility] 02-07-2022 10:02-0400 Respiratory rate 16 /min Cam Tan MD Work Phone: [facility] 02-07-2022 10:02-0400 Systolic blood pressure 98 mm[Hg] Cam Tan MD Work Phone: [facility] Encounters Encounter Date Encounter Type Care Provider Facility Start: 02-24-2025 ambulatory Cam Tan Facility:[facility] Start: 01-27-2025 End: 01-27-2025 Patient encounter procedure Bianka Maciel APRN.MACHINE TRIMMER Work Phone: [facility] Comment on above: Dysuria (Primary Dx) ; Abdominal bloating Start: 01-27-2025 End: 01-27-2025 ambulatory BIANKA MACIEL Facility:[facility] Start: 01-22-2025 End: 01-22-2025 Postop follow up visit related to original px Tarun Farris MD Work Phone: [facility] Comment on above: Postoperative examin ation (Primary Dx); S/P laparoscopic cholecystectomy Start: 01-22-2025 End: 01-22-2025 ambulatory TARUN FARRIS [facility] Start: 01-15-2025 End: 01-30-2025 [facility] Start: 01-15-2025 End: 01-30-2025 Patient encounter procedure [facility] Start: 01-09-2025 End: 01-14-2025 Patient encounter procedure Ya [facility] Start: 01-09-2025 End: 01-14-2025 ambulatory [facility] Start: 01-09-2025 End: 01-09-2025 Subsequent hospital visit by physician Tarun Farris MD Work Phone: [facility] MAIN OR Comment on above: Biliary dyskinesia ( Primary Dx); Chronic cholecystitis; Biliary sludge determined by ultrasound Start: 01-06-2025 End: 01-06-2025 ambulatory [facility] Start: 01-05-2025 End: 01-05-2025 Office outpatient new 45 minutes Tarun Farris MD Work Phone: [facility] Comment on above: Biliary dyskinesia ( Primary Dx); Biliary sludge determined by ultrasound; Chronic cholecystitis Start: 01-05-2025 End: 01-05-2025 ambulatory [facility] Start: 01-01-2025 End: 01-01-[address] Cam Tan MD Work Phone: [facility] Work Phone: Start: 01-01-2025 End: 01-01-[address] Freddie Gomez MD -Laboratory [place] Work Phone: Start: 01-01-2025 End: 01-01-2025 ambulatory [facility] Start: 12-30-2024 End: 12-30-[address] Cam Tan MD Work Phone: [facility] Work Phone: Start: 12-30-2024 End: 12-30-[address] Freddie Gomez MD -Nuclear Medicine [facility] Work Phone: Start: 12-30-2024 End: 12-30-2024 ambulatory [facility] Start: 12-11-2024 End: 02-10-2025 Follow-up encounter Sowmya Maciel MD Work Phone: OB/Gynecology Start: 12-09-2024 End: 12-09-2024 Patient encounter procedure [employer] [facility] [employer] OB/Gynecology Start: 12-09-2024 End: 12-09-2024 [facility] Start: 12-02-2024 End: 12-02-2024 Patient encounter procedure Sowmya Maciel MD Work Phone: OB/Gynecology Comment on above: Abdominal bloating ( Primary Dx); Chronic abdominal pain; Nausea Start: 12-02-2024 End: 12-02-2024 ambulatory CAM TAN Facility:[facility] Start: 11-14-2024 End: 11-14-[address] Cam Tan MD Work Phone: [facility] Work Phone: Start: 11-14-2024 End: 11-14-[address] Cam Tan MD Work Phone: -Nuclear Medicine, [facility] Work Phone: Start: 11-14-2024 End: 11-14-2024 ambulatory Cam Tan Facility:[facility] Start: 11-06-2024 End: 11-06-[address] Cam Tan MD Work Phone: [facility] Work Phone: Start: 11-06-2024 End: 11-06-[address] Cam Tan MD Work Phone: -[facility] Work Phone: Start: 11-06-2024 End: 11-06-2024 ambulatory Cam Tan Facility:[facility] Start: 10-20-2024 End: 10-20-[address] Cam Tan MD Work Phone: [facility] Work Phone: Start: 10-20-2024 End: 10-20-[address] Cam Tan MD Work Phone: -[facility] Work Phone: Start: 10-20-2024 End: 10-20-2024 ambulatory Cam Tan Facility:[facility] Start: 09-11-2024 End: 09-11-[address] Cam Tan MD Work Phone: -[facility] Work Phone: Start: 09-11-2024 End: 09-11-2024 ambulatory PÉREZ BAHENA Facility:[facility] Start: 07-09-2024 End: 07-09-[address] Cam Tan MD Work Phone: -[facility] [place] Work Phone: Start: 07-09-2024 End: 07-09-2024 ambulatory Cam Tan Facility:[facility] Start: 05-27-2024 End: 05-27-2024 Emergency department patient visit [facility] Start: 10-28-2023 End: 10-28-2023 Emergency department patient visit [facility]-Emergency Department Work Phone: Start: 07-02-2023 Telephone encounter Deborah kimball DIRECTOR [employer]MACHINE TRIMMER Work Phone: OB/Gynecology Comment on above: Results Start: 06-29-2023 End: 06-29-2023 Patient encounter procedure Deborah Fletcher DIRECTOR [employer].MACHINE TRIMMER Work Phone: OB/Gynecology Comment on above: Menorrhagia with reg ular cycle (Primary Dx); Dysmenorrhea Start: 02-08-2023 End: 02-08-2023 Patient encounter procedure Cam Tan MD Work Phone: [facility] Comment on above: Encounter for routin e child health examination w/o abnormal findings (Primary Dx); Screening for depression Start: 02-08-2023 End: 02-08-2023 Patient encounter status Cam Tan MD Work Phone: [facility] Start: 02-07-2022 End: 02-07-2022 Patient encounter procedure Cam Tan MD Work Phone: [facility] Comment on above: Encounter for routin e child health examination w/o abnormal findings (Primary Dx); Encounter for immunization; Screening for depression Start: 02-07-2022 End: 02-07-2022 Patient encounter status Cam Tan MD Work Phone: [facility] Procedures Date Procedure Procedure Detail Performing Clinician Start: 01-27-2025 Urnls dip stick/tabl et rgnt auto w/o microscopy Bianka Maciel DIRECTOR [employer].MACHINE TRIMMER Work Phone: Start: 01-09-2025 Urine test visual color cmprsn meths Tarun Farris MD Work Phone: Start: 12-30-2024 Radionuclide study o f abdomen Dr. Cam Tan MD Work Phone: Start: 12-30-[address] Cam Tan MD Work Phone: Start: 12-09-2024 Us pelvic nonobstetr ic real-time image complete Sowmya Maciel MD Work Phone: Start: 11-14-2024 [address] empt[address] study Dr[address] Cam Tan MD Work Phone: Start: 11-06-2024 Computed tomography of abdomen and pelvis with contrast Dr. Cam Tan MD Work Phone: Start: 10-20-[address] Reva Tan MD Work Phone: Comment on above: Performed at: [address] [id number] Director: Karin Agarwal MD, Phone: [phone] Start: 09-11-[address] Cam Tan MD Work Phone: Start: 10-28-2023 Computed tomography of abdomen and pelvis with intravenous contrast Start: 02-08-2023 Adult depression screening assessment Cam Tan MD Work Phone: Start: 02-07-2022 Menacwy-tt conj vacc serogroups acwy for im use Cam Tan MD Work Phone: Start: 02-07-2022 Adult depression screening assessment Cam Tan MD Work Phone: History of cholecystectomy S/P laparoscopic cholecystectomy Tarun Farris MD Work Phone: Plan of Treatment Date Care Activity Detail Author Start: 2080 RSV Immunization for Adults (1 - 1-dose 75+ series) RSV Immunization for Adults (1 - 1-dose 75+ series) [facility] Start: 2055 Zoster Vaccines (1 of 2) Zoste r Vaccines (1 of 2) [facility] Start: 01-18-2028 DTaP/Tdap/Td Vaccine s (7 - Td or Tdap) DTaP/Tdap/Td Vaccines (7 - Td or Tdap) [facility] Start: 01-18-2028 Urine microalbumin profile [facility] Start: 04-06-2025 Influenza vaccination Influenz a Vaccine (Season Ended) [facility] Start: 01-22-2025 End: 01-22-2025 Patient encounter procedure 01/22/2025 10:45 AM EDT Office Visit [facility] [address] [id number] Tarun Farris MD [address] [address] [facility] Start: 01-09-2025 End: 01-09-2025 Admission to same day surgery center 01/09/2025 11:15 AM EDT - 01/09/2025 12:45 PM EDT Surgery [facility] MAIN OR [address] [place] [id number] Tarun Farris MD [address] [address] LAPAROSCOPIC CHOLECYSTECTOMY, POSSIBLE OPEN [35170 (CPT )] [facility] MAIN OR Comment on above: LAPAROSCOPIC CHOLECY STECTOMY, POSSIBLE OPEN [41837 (CPT )] Start: 01-09-2025 Subsequent hospital visit by physician 01/09/2025 11:15 AM EDT Hospital Encounter [facility] MAIN OR [address] [place] [phone] Tarun Farris MD [address] [address] [facility] MAIN OR Start: 01-09-2025 End: 01-09-2025 Laparoscopy surg cholecystectomy [facility] Operating Room Start: 01-06-2025 End: 01-06-2025 Admission to establishment 01/06/2025 11:30 AM EDT Pre-Admission Testing [facility] Pre-Admit Testing [address] [place] [address] [facility] Pre-Admit Testing Start: 12-09-2024 End: 12-09-2024 ambulatory 12/09/2024 11:00 AM EDT Procedure OB/Gynecology [address] [facility] [place] [address] Remote, [employer] [address] [place] [address] Abdominal bloating [R14.0] OB/Gynecology Comment on above: Abdominal bloating [ R14.0] Start: 12-02-2024 End: 12-02-2025 US Pelvis PELVIC US [facility] Imaging Routine Abdominal bloating Expected: 12/02/2024, Expires: 12/02/2025 [facility] Work Phone: Comment on above: Expected: 12/02/2024 , Expires: 12/02/2025 Start: 04-06-2024 Covid-19 Vaccine ( season) Covid-19 Vaccine ( season) [facility] Start: 04-06-2024 Influenza vaccination Influenza Vacc ine (#1) [facility] Start: 02-09-2024 Adult depression screening assessment DEPRESSION SCREENING [facility] Start: 10-28-2023 End: 10-28-2023 [facility] Start: 06-29-2023 End: 09-28-2023 25-hydroxyvitamin D3 [Mass/volume] in Serum or Plasma [facility] Work Phone: Comment on above: Expected: 06/29/2023 , Expires: 09/28/2023 Start: 06-29-2023 End: 09-28-2023 Cobalamin (Vitamin B12) [Mass/volume] in Serum or Plasma [facility] Work Phone: Comment on above: Expected: 06/29/2023 , Expires: 09/28/2023 Start: 06-29-2023 End: 09-28-2023 Iron and Iron binding capacity panel - Serum or Plasma [facility] Work Phone: Comment on above: Expected: 06/29/2023 , Expires: 09/28/2023 Start: 06-29-2023 End: 09-28-2023 Thyrotropin [Units/volume] in Serum or Plasma [facility] Work Phone: Comment on above: Expected: 06/29/2023 , Expires: 09/28/2023 Start: 2023 Anxiety Screening Anxiety Screening [facility] Start: 2023 Chlamydia Screening (18-24) Chlamydia Screening (18-24) [facility] Start: 2023 GC (Gonorrhea) Scree meño (18-24) GC (Gonorrhea) Screening (18-24) [facility] Start: 2023 Hepatitis C screening Hepatitis C [facility] Start: 2023 HIV Screening HIV Screening [facility] Start: 2023 HIV screening HIV Screening [facility] Start: 2023 Screening for Chlamy nilam trachomatis Chlamydia Screening (18-) [facility] Start: 04-06-2023 Influenza vaccination [facility] Start: 02-07-2023 Adult depression screening assessment DEPRESSION SCREENING [facility] Start: 08-06-2022 Depression Assessment Depression Ass essment [facility] Start: 04-06-2022 Influenza vaccination INFLUENZA (#1) [facility] Start: 2021 Meningococcal B Vacc ine (1 of 2 - Standard) Meningococcal B Vaccine (1 of 2 - Standard) [facility] Start: 2021 Meningococcal B Vacc ine: Consider Based On Risk (1 of 2 - Patient Seeks Protection) Meningococcal B Vaccine: Consider Based On Risk (1 of 2 - Patient Seeks Protection) [facility] Start: 2020 CHLAMYDIA SCREENING (<18) CHLA MYDIA SCREENING (<18) [facility] Start: 2020 GC (GONORRHEA) SCREE MEÑO (<18) GC (GONORRHEA) SCREENING (<18) [facility] Start: 08-10-2019 Hepatitis A Vaccines (2 of 2 - 2-dose series) Hepatitis A Vaccines (2 of 2 - 2-dose series) [facility] Start: 2019 PEDS TO ADULT TRANSI TION ANNUAL ASSESSMENT PEDS TO ADULT TRANSITION ANNUAL ASSESSMENT [facility] Start: 2017 Depression Screening Depression Scre ening [facility] Start: 2015 MENINGOCOCCAL B: Con 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 Work Phone: Comment on above: Ordered: 01/27/2025 Patient Education Abdominal Pain ED Constipation (Adult) [facility] Work Phone: Patient referral [facility] Work Phone: Tissue exam [facility] Work Phone: Comment on above: Release Upon Orderin g for 1 Occurrences starting 01/09/2025, 1 completed Immunizations Immunization Date Immunization Notes Care Provider Fa merlin 02-07-2022 meningococcal (MenACWY-TT) vaccine, quadrivalent (MENQUADFI) Cam Tan MD Work Phone: [facility] 02-07-2019 hepatitis A vaccine, pediatric/adolescent dosage, 2 dose schedule Cam Tan MD Work Phone: [facility] Work Phone: 02-07-2019 hepatitis A and hepatitis B vaccine Tarun Farris MD Work Phone: [facility] 01-20-2019 Human Papillomavirus 9-valent vaccine Cam Tan MD Work Phone: [facility] 01-17-2018 Human Papillomavirus 9-valent vaccine Cam Tan MD Work Phone: [facility] 01-17-2018 meningococcal polysaccharide (groups A, C, Y and W-135) diphtheria toxoid conjugate vaccine (MCV4P) Cam Tan MD Work Phone: [facility] 01-17-2018 tetanus toxoid, redu darwin diphtheria toxoid, and acellular pertussis vaccine, adsorbed Cam Tan MD Work Phone: [facility] 06-23-2010 diphtheria, tetanus toxoids and acellular pertussis vaccine Cam Tan MD Work Phone: [facility] 06-23-2010 influenza virus vacc ine, live, attenuated, for intranasal use Cam Tan MD Work Phone: [facility] 06-23-2010 measles, mumps and rubella virus vaccine Cam Tan MD Work Phone: [facility] 06-23-2010 poliovirus vaccine, inactivated Cam Tan MD Work Phone: [facility] 06-23-2010 varicella virus vaccine Cam Tan MD Work Phone: [facility] 06-23-2010 influenza virus vacc ine, unspecified formulation Deborah Fletcher APRN.CNP Work Phone: [facility] 05-08-2009 influenza virus vacc ine, live, attenuated, for intranasal use Cam Tan MD Work Phone: [facility] Work Phone: 07-03-2008 influenza virus vacc ine, live, attenuated, for intranasal use Cam Tan MD Work Phone: [facility] 06-06-2007 influenza virus vacc ine, unspecified formulation Cam Tan MD Work Phone: [facility] Work Phone: 09-05-2006 diphtheria, tetanus toxoids and acellular pertussis vaccine Cam Tan MD Work Phone: [facility] Work Phone: 09-05-2006 haemophilus influenz ae type b vaccine, HbOC conjugate Cam Tan MD Work Phone: [facility] Work Phone: 06-01-2006 influenza virus vacc ine, unspecified formulation Cam Tan MD Work Phone: [facility] 06-01-2006 measles, mumps and rubella virus vaccine Cam Tan MD Work Phone: [facility] 06-01-2006 pneumococcal conjuga te vaccine, 7 valent Cam Tan MD Work Phone: [facility] 06-01-2006 varicella virus vaccine Cam Tan MD Work Phone: [facility] 2005 DTaP-hepatitis B and poliovirus vaccine Cam Tan MD Work Phone: [facility] Work Phone: 2005 haemophilus influenz ae type b vaccine, HbOC conjugate Cam Tan MD Work Phone: [facility] Work Phone: 2005 pneumococcal conjuga te vaccine, 7 valent Cam Tan MD Work Phone: [facility] Work Phone: 2005 DTaP-hepatitis B and poliovirus vaccine Cam Tan MD Work Phone: [facility] Work Phone: 2005 haemophilus influenz ae type b vaccine, HbOC conjugate Cam Tan MD Work Phone: [facility] Work Phone: 2005 pneumococcal conjuga te vaccine, 7 valent Cam Tan MD Work Phone: [facility] Work Phone: 2005 DTaP-hepatitis B and poliovirus vaccine Cam Tan MD Work Phone: [facility] 2005 haemophilus influenz ae type b vaccine, HbOC conjugate Cam Tan MD Work Phone: [facility] 2005 pneumococcal conjuga te vaccine, 7 valent Cam Tan MD Work Phone: [facility] 2005 hepatitis B vaccine, pediatric or pediatric/adolescent dosage Cam Tan MD Work Phone: [facility] Work Phone: Payers Date Payer Category Payer Commercial Managed C are - HMO MMO SUPERMED [id number] 2024 Self-pay [id number] 2013 Private Health Insurance MMO SUP ERMED PPO [id number] 2013 Unknown MMO MMO SUPERMED PLUS [id number] 2013-Present [phone] [address] [place] [address] PPO [id number] 2013 Unknown MMO MMO SUPERMED PPO [id number] 2013-Present [phone] [address] [place] [address] PPO [id number] 2013 Unknown [id number] Medicaid MEDICAID [id number] Unknown [id number] Unknown [id number] Unknown [id number] Unknown [id number] Unknown [id number] Unknown [id number] Unknown [id number] Unknown [id number] Unknown [id number] Unknown [id number] Social History Date Type Detail Facility Start: 08-19-2012 End: 06-29-2023 Tobacco smoking status NHIS Never smoked tobacco [facility] Work Phone: Start: 08-19-2012 End: 06-29-2023 Tobacco use and exposure Smokeless tobacco non-user [facility] Work Phone: Start: 02-07-2022 End: 02-08-2023 Alcohol intake Not Asked [facility] Start: 2005 Sex Assigned At Female C [facility] Start: 01-28-2022 End: 02-07-2022 Exposure to SARS-CoV-2 (event) Not sure [facility] Start: 02-08-2023 History SDOH Physica l Activity DPW 6 [facility] Start: 02-08-2023 History SDOH Financial 5 [facility] Start: 02-08-2023 History SDOH Food Worry 1 [facility] Start: 02-08-2023 History SDOH Transport Med 2 [facility] Start: 06-29-2023 End: 12-02-2024 Alcohol intake Lifetime non-drinker (finding) [facility] Start: 02-08-2023 End: 06-29-2023 History of Social function [facility] Start: 02-08-2023 End: 06-29-2023 Tobacco use panel [facility] How hard is it for you to pay for the very basics like food, housing, medical care, and heating Not hard at all [facility] (I/We) worried whether (my/our) food would run out before (I/we) got money to buy more. Never true [facility] In the past 12 months, was there a time when you were not able to pay the mortgage or rent on time? No [facility] Start: 12-30-2019 Gender identity Identifies as female gender (finding) [facility] Start: 10-28-2023 Tobacco smoking status NHIS Unknown if ever smoked [facility] Start: 10-13-2024 End: 10-29-2024 Sex Female (finding) [facility] Start: 2005 Sex assigned at Not on file S [facility] NEGATED: Highlighted rowStart: NINF History of tobacco use Passive smoker [facility] Work Phone: Functional Status Date Assessment Result Facility 03-11-2015 Are you deaf, or do you have serious difficulty hearing No 03/11/2015 12:49 PM Denae Bai LPN No [facility] 03-11-2015 Are you blind, or do you have serious difficulty seeing, even when wearing glasses No 03/11/2015 12:49 PM Denae Bai LPN No [facility] 03-11-2015 Do you have serious difficulty walking or climbing stairs No 03/11/2015 12:49 PM EDT Denae Schmidt LPN No [facility] 03-11-2015 Do you have difficul ty dressing or bathing No 03/11/2015 12:49 PM EDT Denae Schmidt LPN No [facility] Mental Status Date Assessment Result Facility 03-11-2015 Because of a physica l, mental, or emotional condition, do you have serious difficulty concentrating, remembering, or making decisions No 03/11/2015 12:49 PM EDT Denae Schmidt LPN No [facility] Clinical Notes 02-07-2022 to 01-27-2025 Bianka Maciel APRN.MACHINE TRIMMER - 01/27/2025 7:57 PM EDTKychaitanya Farris MD - 01/22/2025 10:45 AM EDTTelephone Encounter - Mariah Dickens RN - 01/15/2025 8:44 AM EDTDischarge InstructionsAttachments Note Date & Type Note Facility 01-27-2025 Note HNO ID: [id number] Author: BIANKA MACIEL APRN.MACHINE TRIMMER Service: ? Author Type: Nurse Practitioner Type: Progress Notes Filed: 01/27/2025 19:58 Note Text: [facility] Subjective Judith Bedolla is a 19 year old female. Patient presents with: UTI: Lower abd pressure, discomfort with urination x2 months, recent gallbladder removal, prior UTI treatment from that [facility] Abdominal Bloating and Pressure: - Symptoms of bloating and lower abdominal pressure x1 week. - Describes sensation as weird and similar to previous asymptomatic UTIs. - Reports incomplete bladder emptying. - Denies dysuria, vaginal odor, discharge, pruritus, fever, chills, nausea, or emesis. - Recent cholecystectomy a few weeks ago; received antibiotics preoperatively. - Denies risk of STDs. - Normal bowel movements. Review of Systems Constitutional: (-) fever, (-) chills Gastrointestinal: (+) abdominal bloating, (+) lower abdominal pressure, (-) nausea, (-) vomiting Genitourinary: (+) sensation of incomplete bladder emptying, (-) dysuria, (-) vaginal discharge, (-) vaginal odor, (-) vaginal pruritus Objective BP 113/59 Pulse 74 Temp 36.6 ?C (97.8 ?F) Resp 18 Wt 68.2 kg (150 lb 5.7 oz) LMP 01/22/2025 (Exact Date) SpO2 99% Physical Exam General: No acute distress. CV: Heart sounds normal. Resp: Lung sounds normal. Back: No costovertebral angle tenderness. Abd: Mild tenderness to palpation in lower abdomen. {1. Dysuria (R30.0) - No dysuria, vaginal odor, or discharge reported. No fever, chills, nausea, or vomiting. - Urinalysis performed; results normal. - Ordered urine culture to verify absence of infection. - Advised patient to return for re-evaluation if symptoms worsen or change. 2. Abdominal bloating (R14.0) - Abdominal exam reveals tenderness and a sensation of fullness in the lower abdomen. - Symptoms have been present for approximately one week. - Recent cholecystectomy performed a few weeks ago; patient was on antibiotics prior to surgery. - No issues with bowel movements reported. - Advised patient to monitor symptoms and return if they worsen or change. and Recording using ClipClock software for draft documentation of the visit was discussed with the patient/authorized international account representative; all questions welcomed and answered. Patient/authorized international account representative agreed to proceed MDM Procedures [facility] 01-27-2025 History of Present illness Narrative [facility] Subjective Judith Bedolla is a 19 year old female. Patient presents with: UTI: Lower abd pressure, discomfort with urination x2 months, recent gallbladder removal, prior UTI treatment from that [facility] Abdominal Bloating and Pressure: - Symptoms of bloating and lower abdominal pressure x1 week. - Describes sensation as weird and similar to previous asymptomatic UTIs. - Reports incomplete bladder emptying. - Denies dysuria, vaginal odor, discharge, pruritus, fever, chills, nausea, or emesis. - Recent cholecystectomy a few weeks ago; received antibiotics preoperatively. - Denies risk of STDs. - Normal bowel movements. Review of Systems Constitutional: (-) fever, (-) chills Gastrointestinal: (+) abdominal bloating, (+) lower abdominal pressure, (-) nausea, (-) vomiting Genitourinary: (+) sensation of incomplete bladder emptying, (-) dysuria, (-) vaginal discharge, (-) vaginal odor, (-) vaginal pruritus Objective BP 113/59 Pulse 74 Temp 36.6 C (97.8 F) Resp 18 Wt 68.2 kg (150 lb 5.7 oz) LMP 01/22/2025 (Exact Date) SpO2 99% Physical Exam General: No acute distress. CV: Heart sounds normal. Resp: Lung sounds normal. Back: No costovertebral angle tenderness. Abd: Mild tenderness to palpation in lower abdomen. {1. Dysuria (R30.0) - No dysuria, vaginal odor, or discharge reported. No fever, chills, nausea, or vomiting. - Urinalysis performed; results normal. - Ordered urine culture to verify absence of infection. - Advised patient to return for re-evaluation if symptoms worsen or change. 2. Abdominal bloating (R14.0) - Abdominal exam reveals tenderness and a sensation of fullness in the lower abdomen. - Symptoms have been present for approximately one week. - Recent cholecystectomy performed a few weeks ago; patient was on antibiotics prior to surgery. - No issues with bowel movements reported. - Advised patient to monitor symptoms and return if they worsen or change. and Recording using ambient Kanjoya software for draft documentation of the visit was discussed with the patient/authorized international account representative; all questions welcomed and answered. Patient/authorized international account representative agreed to proceed MDM Procedures documented in this encounter [facility] 01-22-2025 History of Present illness Narrative Images from the original note were not included. General Surgery Tarun Farris MD, MPH Outpatient Post-Operative/Follow Up Office Note Patient ID: Judith Bedolla [id number] 19 y.o. 2005 Post Op. Surgery Date: 01/09/2025 Surgical Procedure: Laparoscopic Cholecystectomy. Diet has returned to normal. Pain well controlled. Some urge for defecation and stools soft but improving. Bad nausea post-op from anesthesia, improved with Zofran. Has been maintaining light activity. Wounds healing well. No other complaints or concerns at this time. Medical History[1] Surgical History[2] Medications Prior to Visit: Prior to Admission medications Medication Sig Start Date End Date Taking? Authorizing Provider polyethylene glycol, PEG, 3350 (Glycolax) 17 GM/SCOOP powder Mix 1 capful (17 grams) into 4-8 oz of liquid and drink daily for 10 days. 01/09/25 01/23/25 Yes Tarun Farris MD ondansetron (Zofran) 4 MG tablet Take 1 tablet (4 mg) by mouth every 8 hours as needed for nausea or vomiting for up to 10 doses. 01/09/25 01/22/25 Yes Tarun Farris MD ondansetron (Zofran) 4 MG tablet Take 1 tablet (4 mg) by mouth every 8 hours as needed for nausea or vomiting for up to 10 doses. 01/22/25 Tarun Farris MD Allergies: Patient has no known allergies. Social History[3] Family History[4] REVIEW OF SYSTEMS: Otherwise negative unless noted above. PHYSICAL EXAM: BP 119/78 Pulse 82 Temp 36.4 C (97.6 F) Ht 5' 7 (1.702 m) Wt 149 lb (67.6 kg) LMP 12/23/2024 (Exact Date) BMI 23.34 kg/m Physical Exam Constitutional: General: She is not in acute distress. Appearance: She is not ill-appearing, toxic-appearing or diaphoretic. Comments: Appears stated age HENT: Head: Normocephalic and atraumatic. Right Ear: External ear normal. Left Ear: External ear normal. Nose: Nose normal. No rhinorrhea. Mouth/Throat: Mouth: Mucous membranes are moist. Eyes: General: No scleral icterus. Right eye: No discharge. Left eye: No discharge. Extraocular Movements: Extraocular movements intact. Conjunctiva/sclera: Conjunctivae normal. Cardiovascular: Rate and Rhythm: Normal rate. Pulses: Normal pulses. Pulmonary: Effort: Pulmonary effort is normal. No respiratory distress. Breath sounds: No wheezing. Abdominal: General: There is no distension. Palpations: There is no mass. Tenderness: There is no abdominal tenderness. There is no guarding or rebound. Hernia: No hernia is present. Comments: Well healing port site incisions - there is induration at the umbilicus Musculoskeletal: General: No swelling, tenderness, deformity or signs of injury. Normal range of motion. Cervical back: Normal range of motion. No rigidity. Skin: General: Skin is warm and dry. Neurological: General: No focal deficit present. Mental Status: She is alert. Cranial Nerves: No cranial nerve deficit (No gross abnormality). Psychiatric: Mood and Affect: Mood normal. Behavior: Behavior normal. Thought Content: Thought content normal. No orders of the defined types were placed in this encounter. PATHOLOGY: Final Diagnosis GALLBLADDER, CHOLECYSTECTOMY: - CHRONIC CHOLECYSTITIS at 1635 EDT Clinical Information Biliary dyskinesia [K82.8] Chronic cholecystitis [K81.1] Biliary sludge determined by ultrasound [K83.8] Gross Description Received in formalin labeled gallbladder is an 8.3 cm in length by 2.3 cm in diameter intact gallbladder. The serosa is pink-purple, smooth, and glistening. The cystic duct margin is inked black. Wall thickness is normal ranging 0.1 to 0.3 cm. The mucosa is green-brown and velvety with no mass or yellow-ontiveros streaking seen. Calculi are not identified. Commodity Management Specialist sections are submitted in one cassette. ASSESSMENT AND PLAN: This is a 19 y.o. female who underwent laparoscopic cholecystectomy on 01/09/25 and presents for a regularly scheduled post-op visit -Pathology reviewed at length - chronic cholecystitis. -Diet as tolerated -Stop Miralax -Continue PRN zofran -No need for further narcotics -Continue planned follow up with GI re: celiac dz -Refill for Zofran sent to pharmacy -Call as needed, follow up PRN Tarun Farris MD 01/22/2025 4:59 PM [1] Past Medical History: Diagnosis Date Celiac disease 12/04/24 Colon polyp 12/04/24 Fractures 2021 Irritable bowel syndrome 01/27 Motion sickness [2] Past Surgical History: Procedure Laterality Date COLONOSCOPY 11/12/2024 LAP,CHOLECYSTECTOMY (HISTORICAL) 01/09/2025 LIP SURGERY (HISTORICAL) 2006 UPPER GASTROINTESTINAL ENDOSCOPY 11/12/2024 WISDOM TOOTH EXTRACTION [3] Social History Socioeconomic History Marital status: Single Tobacco Use Smoking status: Never Smokeless tobacco: Never Vaping Use Vaping status: Never Used Substance and Sexual Activity Alcohol use: Never Drug use: Never Sexual activity: Never Social Drivers of Health Financial Resource Strain: Low Risk (02/07/2023) Received from [facility] Overall Financial Resource Strain (CARDIA) Difficulty of Paying Living Expenses: Not hard at all Food Insecurity: No Food Insecurity (02/07/2023) Received from [facility] Hunger Vital Sign Worried About Running Out of Food in the Last Year: Never true Ran Out of Food in the Last Year: Never true Transportation Needs: No Transportation Needs (02/07/2023) Received from [facility] PRAPARE - Transportation Lack of Transportation (Medical): No Lack of Transportation (Non-Medical): No Physical Activity: Sufficiently Active (02/07/2023) Received from [facility] Exercise Vital Sign Days of Exercise per Week: 6 days Minutes of Exercise per Session: 60 min Housing Stability: Low Risk (02/07/2023) Received from [facility] Housing Stability Vital Sign Unable to Pay for Housing in the Last Year: No Number of Places Lived in the Last Year: 1 Unstable Housing in the Last Year: No [4] No family history on file. documented in this encounter [facility] 01-15-2025 Telephone encounter Note S: Patient's mom (Little) is calling the [facility] to discuss post op issue - nausea. B: Onset of symptoms/concern since surgery last week - 01-09-25. A: Mom states pt has been having issues with nausea since her gallbladder surgery. Denies fever, vomiting, bleeding or drainage to incisions; pain with urination, abdominal pain. Pt is only taking occas OTC Tylenol or Ibuprofen for pain. Pain is mild at this time; only slight constipation. Rev'd with Mom that pt should have Rx for Zofran - from 01-09-25. Mom states she has the bottle of Zofran but they were not sure what it was for. She will start taking Zofran and see if that helps. Advised Mom to have pt eat small frequent snacks, bland diet, sip fluids. R: Mom states she understands home care instructions. She will call back if any further ques or concerns. Keep appt for 01-22-25. Reason for Disposition Other post-op symptom or question Answer Assessment - Initial Assessment Questions 1. SYMPTOM: What's the main symptom you're concerned about? (e.g., pain, fever, vomiting) nausea 2. ONSET: When did nausea start? Ongoing since surgery 3. SURGERY: What surgery did you have? Gallbladder removal 4. DATE of SURGERY: When was the surgery? 01-09-25 5. ANESTHESIA: What type of anesthesia did you have? (e.g., general, spinal, epidural, local) general 6. DRAINS: Were any drains place in or around the wound? (e.g., Hemovac, [place], [place]) No 7. PAIN: Is there any pain? If Yes, ask: How bad is it? (Scale 1-10; or mild, moderate, severe) Mild to moderate 8. FEVER: Do you have a fever? If Yes, ask: What is your temperature, how was it measured, and when did it start? No 9. VOMITING: Is there any vomiting? If Yes, ask: How many times? No - nausea 10. BLEEDING: Is there any bleeding? If Yes, ask: How much? and Where? No 11. OTHER SYMPTOMS: Do you have any other symptoms? (e.g., drainage from wound, painful urination, constipation) Slight constipation Protocols used: Post-Op Symptoms and [id number]-AJ [facility] 01-15-2025 Miscellaneous Notes S: Patient's mom (Little) is calling the [facility] to discuss post op issue - nausea. B: Onset of symptoms/concern since surgery last week - 01-09-25. A: Mom states pt has been having issues with nausea since her gallbladder surgery. Denies fever, vomiting, bleeding or drainage to incisions; pain with urination, abdominal pain. Pt is only taking occas OTC Tylenol or Ibuprofen for pain. Pain is mild at this time; only slight constipation. Rev'd with Mom that pt should have Rx for Zofran - from 01-09-25. Mom states she has the bottle of Zofran but they were not sure what it was for. She will start taking Zofran and see if that helps. Advised Mom to have pt eat small frequent snacks, bland diet, sip fluids. R: Mom states she understands home care instructions. She will call back if any further ques or concerns. Keep appt for 01-22-25. Reason for Disposition Other post-op symptom or question Answer Assessment - Initial Assessment Questions 1. SYMPTOM: What's the main symptom you're concerned about? (e.g., pain, fever, vomiting) nausea 2. ONSET: When did nausea start? Ongoing since surgery 3. SURGERY: What surgery did you have? Gallbladder removal 4. DATE of SURGERY: When was the surgery? 01-09-25 5. ANESTHESIA: What type of anesthesia did you have? (e.g., general, spinal, epidural, local) general 6. DRAINS: Were any drains place in or around the wound? (e.g., Hemovac, [place], [place]) No 7. PAIN: Is there any pain? If Yes, ask: How bad is it? (Scale 1-10; or mild, moderate, severe) Mild to moderate 8. FEVER: Do you have a fever? If Yes, ask: What is your temperature, how was it measured, and when did it start? No 9. VOMITING: Is there any vomiting? If Yes, ask: How many times? No - nausea 10. BLEEDING: Is there any bleeding? If Yes, ask: How much? and Where? No 11. OTHER SYMPTOMS: Do you have any other symptoms? (e.g., drainage from wound, painful urination, constipation) Slight constipation Protocols used: Post-Op Symptoms and [id number] documented in this encounter [facility] 01-09-2025 Telephone encounter Note S: Patient mother Little spoke with [facility] nurse regarding post op problem B: Onset of symptoms/concern today A: States she had gallbladder surgery earlier today with Dr Farris. States she was having dry heaves since surgery. Gave her Zofran and tylenol at 4 pm. Pt had emesis at 410 pm. Unsure if vomited up meds, questions if should re-dose? Did not feel pills in emesis bag, did not see any but unsure if they were retained. R: secure chat to econometrician Jason Hanna NP. Per Jason Hanna, Okay to repeat dose of Zofran. Would hold off on the tylenol Above relayed to caller, advised caller to resume tylenol when next dosing time is due. Also discussed sticking to clear liquids and slowly advancing diet as tolerated due to the nausea and vomiting. Caller understands care advice. No further needs at this time. Patient instructed to call back with new or worsening symptoms. Reason for Disposition [1] Caller has URGENT question AND [2] triager unable to answer question Protocols used: Post-Op Symptoms and Wmvesoivq-OOALI-VE [facility] 01-09-2025 Miscellaneous Notes S: Patient mother Little spoke with [facility] nurse regarding post op problem B: Onset of symptoms/concern today A: States she had gallbladder surgery earlier today with Dr Farris. States she was having dry heaves since surgery. Gave her Zofran and tylenol at 4 pm. Pt had emesis at 410 pm. Unsure if vomited up meds, questions if should re-dose? Did not feel pills in emesis bag, did not see any but unsure if they were retained. R: secure chat to econometrician Jason Hanna LUNCHROOM OPERATOR. Per Jason Hanna, Okay to repeat dose of Zofran. Would hold off on the tylenol Above relayed to caller, advised caller to resume tylenol when next dosing time is due. Also discussed sticking to clear liquids and slowly advancing diet as tolerated due to the nausea and vomiting. Caller understands care advice. No further needs at this time. Patient instructed to call back with new or worsening symptoms. Reason for Disposition [1] Caller has URGENT question AND [2] triager unable to answer question Protocols used: Post-Op Symptoms and Tlkyfmffv-PZBKL-TH documented in this encounter [facility] 01-09-2025 Nurse Note To phase 2 via cart report to phase 2 rn tolerated cracker and clear liquids well [facility] 01-09-2025 Miscellaneous Notes To phase 2 via cart report to phase 2 rn tolerated cracker and clear liquids well Images from the original note were not included. DEPARTMENT OF SURGERY OPERATIVE NOTE DATE OF PROCEDURE: 01/09/2025 ATTENDING SURGEON: Tarun Farris MD, MPH APPLICATION PACKAGING CONSULTANT: Shay Lange, PGY5 PREOPERATIVE DIAGNOSIS: Biliary Dyskinesia POSTOPERATIVE DIAGNOSIS: Same, plus chronic cholecystitis OPERATION: Laparoscopic Cholecystectomy ANESTHESIA: General anesthesia ESTIMATED BLOOD LOSS: <10cc COMPLICATIONS: None SPECIMENS: Gallbladder HISTORY: The patient is a 19 y.o. female with history of above preop diagnosis. The patient presented to the outpatient office with the complaints of abdominal pain, associated with eating, post-prandial in nature, as well as occasional nausea. Objective evidence was obtained and this combined with the patient's subjective evidence led to the above aforementioned pre-operative diagnosis. I explained the risk, benefits, expected outcome, and alternatives to the procedure. Patient understood and was in agreement to proceed with operation. PROCEDURE: The patient was brought to the operating room and placed in supine position. They were appropriately identified by operating room staff. After initiation of general anesthesia by the Anesthesia Department, a CRISTY block was performed - please see their documentation for this elsewhere. The abdomen was prepped and draped normal sterile fashion. An appropriate surgical timeout was performed and all agreed to proceed with operative intervention as planned. A Veress needle was placed in the left upper quadrant and insufflated without difficulty. We placed four separate 5 mm trocars, one in the left upper quadrant, 2 in the right upper quadrant, and then 1 additional 5 mm trocar in the periumbilical position. Upon entering the abdomen, the gallbladder was identified, grasped, and retracted cephalad. The peritoneum overlying the junction of the cystic duct was stripped free. Hook electrocautery was used to detach the lateral peritoneal attachments, the left and right side of the gallbladder up towards the fundus. We isolated the cystic duct and cystic artery and dissected the posterior aspect of the gallbladder from the gallbladder fossa. The critical view of safety was achieved to the best of our ability as limited by patient and disease factors. There were only 2 structures noted, the cystic duct and the cystic artery. We placed 2 Hemolock clips on the stay side of the cystic duct and 1 clip on the gallbladder side and the cystic duct was divided. We placed 2 clips on the stay side of the cystic artery, 1 clip on the gallbladder side and the cystic artery was divided. Hook electrocautery was used to remove the gallbladder from the gallbladder fossa. Prior to amputating the gallbladder, we again re-evaluated our clip structures, there was no evidence of bleeding or bilious extravasation. The gallbladder was amputated and removed it through the umbilical incision, I did use a ghada forceps to spread the fascia minimally to aid this extraction. Multiple sutures of 0 Vicryl was used to close the fascial defect at the gallbladder extraction site. The skin was closed using 4-0 Monocryl. The patient tolerated the procedure well, was extubated, and sent to the recovery room in stable condition. All counts were correct SPECIMEN: Gallbladder Patient educated on importance of coughing/ deep breathing after surgery to reduce risk of pneumonia. Patient educated on importance of early mobility to reduce the risk of blood clots. Falls prevention information reviewed with patient. Post-operative pain control and ways to prevent constipation discussed with patient. documented in this encounter [facility] 01-09-2025 Note Patient: Judith Bedolla Procedure Summary Date: 01/09/25 Room / Location: [address] Operating Room Anesthesia Start: 1044 Anesthesia Stop: 1144 Procedure: LAPAROSCOPIC CHOLECYSTECTOMY, POSSIBLE OPEN (Abdomen) Diagnosis: Biliary dyskinesia Chronic cholecystitis Biliary sludge determined by ultrasound (Biliary dyskinesia [K82.8]) (Chronic cholecystitis [K81.1]) (Biliary sludge determined by ultrasound [K83.8]) Surgeons: Tarun Farris MD Responsible Provider: Janell Parra DO Anesthesia Type: general ASA Status: 1 Anesthesia Type: general Vitals Value Taken Time BP 101/52 01/09/25 12:30 Temp 36.7 ?C (98 ?F) 01/09/25 11:46 Pulse 59 01/09/25 12:30 Resp 12 01/09/25 12:30 SpO2 99 % 01/09/25 12:30 Anesthesia Post Evaluation Patient location during evaluation: PACU Patient participation: complete - patient participated Level of consciousness: sleepy but arousable Pain management: satisfactory to patient Airway patency: patent Dental Injury: no Cardiovascular status: acceptable, blood pressure returned to baseline and hemodynamically stable Respiratory status: acceptable and spontaneous ventilation Hydration status: euvolemic Nausea/Vomiting: controlled No notable events documented. Patient can be discharged once all PACU criteria has been met. [facility] 01-09-2025 Note Patient: Judith Bedolla Procedure Summary Date: 01/09/25 Room / Location: [address] Operating Room Anesthesia Start: 1044 Anesthesia Stop: 1144 Procedure: LAPAROSCOPIC CHOLECYSTECTOMY, POSSIBLE OPEN (Abdomen) Diagnosis: Biliary dyskinesia Chronic cholecystitis Biliary sludge determined by ultrasound (Biliary dyskinesia [K82.8]) (Chronic cholecystitis [K81.1]) (Biliary sludge determined by ultrasound [K83.8]) Surgeons: Tarun Farris MD Responsible Provider: Janell Parra DO Anesthesia Type: general ASA Status: 1 Anesthesia Type: general Vitals Value Taken Time BP 101/52 01/09/25 12:30 Temp 36.7 ?C (98 ?F) 01/09/25 11:46 Pulse 59 01/09/25 12:30 Resp 12 01/09/25 12:30 SpO2 99 % 01/09/25 12:30 Anesthesia Post Evaluation Patient participation: complete - patient participated Level of consciousness: sleepy but arousable Pain management: satisfactory to patient Multimodal analgesia pain management approach Airway patency: patent Two or more strategies used to mitigate risk of obstructive sleep apnea Respiratory status: acceptable Cardiovascular status: acceptable Hydration status: acceptable No notable events documented. MIPS #430 PONV Patient received an inhalational anesthetic (4554F) Patient exhibits three or more risk factors for PONV (4556F) Patient received at leaset 2 prophylactic Rx PONV anti-emtic agents of different classes preop and/or intraop (G9775) MIPS # 424 Perioperative Temperature Management Anesthesia time was less than 60 minutes (4256F) MIPS #477 Multimodal Pain Management Not emergent case Patient was administered multimodal pain management (two or more drugs and/or interventions excluding systemic opioids) in the periopeartive period occurring at some time between 6 hours prior to anesthesia start time until discharged from PACU (G2148) MIPS #404 Anesthesiology Smoking Abstinence The patient is not a current smoker (e.g. cigarette, cigar, pipe, e-cigarette/vaping/marijuana) If no stop here (XX404) I completed my handoff to the receiving clinician during which we: 1. Identified the patient 2. Identified the responsible provider 3. Reviewed the pertinent medical history 4. Discussed the surgical course 5. Reviewed intra-op anesthesia management and issues during anesthesia 6. Set expectations for post-procedure period 7. Allowed opportunity for questions and acknowledgement of understanding. [facility] 01-09-2025 Hospital Discharge instructions Tarun Farris MD - 01/09/2025 11:39 AM EDT Images from the original note were not included. POST-OPERATIVE INSTRUCTIONS LAPAROSCOPIC/ROBOTIC SURGERY Thank you very much for allowing me to participate in your care, it is truly a privilege. Below please see discharge orders that will help you during your recovery. Please do not hesitate to call the office at [phone] for any questions. After hours, the same number will allow you to reach the on-call surgeon. Call the office to schedule your post-operative appointment with Dr. Farris or PA/LUNCHROOM OPERATOR for 2 weeks if not already scheduled. (May need to be seen before 2 weeks if stitches and/or drains present) Change bandages daily or more frequently if needed. Keep incisions clean with soap/ water daily. (Peroxide OK as well) Cover incision(s) as needed. Please remove the Steri-Strips 5 days after surgery. This includes any clear bandages and gauze placed in the navel, if applicable. If you have skin glue this will come off on its own May place an ice pack over your incisions on and off (15min) at a time for the next 24-48 hours. Resume regular diet as tolerated (recommend starting with liquids) General guidelines for activity: Avoid strenuous activity or lifting anything heavier than 15 pounds. It is OK to be up and walking around. Going up and down stairs is also OK. Do what is comfortable: stop and rest when you feel tired. It is OK to shower after 24 hours You will have pain medicine ordered. Take as directed/needed. Some discomfort, mild bruising, and swelling are not unusual; please call my office if you have any severe pain, hemorrhage, or high fever (over 101 F) During the laparoscopic procedure that you had, gas is pumped into the abdominal cavity. You may feel abdominal, shoulder, or rib pain for a few days due to this. Resume home medications (see medication reconciliation sheet) Do NOT drive for one day and while taking your narcotic pain medicine. Watch for signs of infection: Excessive warmth or bright redness around your incisions Leakage of bloody or cloudy fluid from you incisions Fever over 100.5 If you experience constipation Increase your water intake. Increase your activity; walking is best. An over the counter stool softener or mild laxative may be necessary if you still have not had a bowel movement after several days. Please call the office at [phone] for any questions and to make your post op appointment if needed. Thank you again for allowing me to participate in your care, and get well soon! Tarun Farris MD, MPH The following attachments cannot be sent through Care Everywhere.General Anesthesia Discharge Instructions (Dutch)documented in this encounter [facility] 01-09-2025 Note Peripheral Block Time Out: 01/09/2025 10:48 AM Patient location during procedure: Procedural Start time: 01/09/2025 10:48 AM End time: 01/09/2025 10:53 AM Reason for block: at surgeon's request and post-op pain management Staffing Performed: FLOORING SALES MANAGER Resident/FLOORING SALES MANAGER: Mac Patel APRN - JOE Preanesthetic Checklist Completed: patient identified, IV checked, site marked, risks and benefits discussed, surgical consent, monitors and equipment checked, pre-op evaluation and timeout performed Region: Truncal Primary: TAP and Upper rectus w/wo lower Peripheral Block Patient position: supine Prep: ChloraPrep Patient monitoring: heart rate, rn cardiac cath, continuous pulse ox and continuous capnometry O2: ETT/LMA Laterality: bilateral Injection technique: single-shot Guidance: ultrasound guided -image retained in chart, tip of the needle identified by ultraound during injection. Needle Needle: 21G X 110 mm Additional Notes 01/09/2025 10:48 AM Assessment Injection assessment: negative aspiration for heme, no paresthesia on injection, incremental injection and local visualized surrounding nerve on ultrasound Paresthesia pain: none Heart rate change: no Slow fractionated injection: yes Required Documentation: Relevant anatomy identified (Nerves, Vessels, Muscles), Local anesthetic spread visualized around nerves or plane., Local anesthetic injected without difficulty, No EKG changes noted, Negative for blood on aspiration, Local anesthetic injected incrementally with intermittent aspiration every 5 mL, No symptoms of toxicity, No paresthesias reported by patient during injection and Normal resistance with injectionMedications emvKJZKAjygdy-lvwmbtkirra-qcndsurf ine (TAP) syringe - Injection 60 mL - 01/09/2025 10:48:00 AM [facility] 01-09-2025 Note Airway Date/Time: 01/09/2025 10:51 AM Reason: scheduled Airway not difficult General Information and Staff Patient location during procedure: Procedural Resident/FLOORING SALES MANAGER: Rosalba Banks APRN - FLOORING SALES MANAGER Performed: FLOORING SALES MANAGER Patient Condition Indications for airway management: anesthesia Patient position: sniffing MILS maintained throughout Sedation level: Asleep Final Airway Details Preoxygenated: yes Final airway type: endotracheal airway Successful airway: ETT Successful intubation technique: direct laryngoscopy Blade: Brent Blade size: #3 ETT size (mm): 7.0 Cormack-Lehane Classification: grade I - full view of glottis Placement verified by: chest auscultation and capnometry Measured from: lips ETT to lips (cm): 21 Number of attempts at approach: 1 Number of other approaches attempted: 0 [facility] 01-09-2025 Note DEPARTMENT OF SURGER Y OPERATIVE NOTE DATE OF PROCEDURE: 01/09/2025 ATTENDING SURGEON: Tarun Farris MD, MPH APPLICATION PACKAGING CONSULTANT: Shay Lange PGY5 PREOPERATIVE DIAGNOSIS: Biliary Dyskinesia POSTOPERATIVE DIAGNOSIS: Same, plus chronic cholecystitis OPERATION: Laparoscopic Cholecystectomy ANESTHESIA: General anesthesia ESTIMATED BLOOD LOSS: <10cc COMPLICATIONS: None SPECIMENS: Gallbladder HISTORY: The patient is a 19 y.o. female with history of above preop diagnosis. The patient presented to the outpatient office with the complaints of abdominal pain, associated with eating, post-prandial in nature, as well as occasional nausea. Objective evidence was obtained and this combined with the patient's subjective evidence led to the above aforementioned pre-operative diagnosis. I explained the risk, benefits, expected outcome, and alternatives to the procedure. Patient understood and was in agreement to proceed with operation. PROCEDURE: The patient was brought to the operating room and placed in supine position. They were appropriately identified by operating room staff. After initiation of general anesthesia by the Anesthesia Department, a CRISTY block was performed - please see their documentation for this elsewhere. The abdomen was prepped and draped normal sterile fashion. An appropriate surgical timeout was performed and all agreed to proceed with operative intervention as planned. A Veress needle was placed in the left upper quadrant and insufflated without difficulty. We placed four separate 5 mm trocars, one in the left upper quadrant, 2 in the right upper quadrant, and then 1 additional 5 mm trocar in the periumbilical position. Upon entering the abdomen, the gallbladder was identified, grasped, and retracted cephalad. The peritoneum overlying the junction of the cystic duct was stripped free. Hook electrocautery was used to detach the lateral peritoneal attachments, the left and right side of the gallbladder up towards the fundus. We isolated the cystic duct and cystic artery and dissected the posterior aspect of the gallbladder from the gallbladder fossa. The critical view of safety was achieved to the best of our ability as limited by patient and disease factors. There were only 2 structures noted, the cystic duct and the cystic artery. We placed 2 Hemolock clips on the stay side of the cystic duct and 1 clip on the gallbladder side and the cystic duct was divided. We placed 2 clips on the stay side of the cystic artery, 1 clip on the gallbladder side and the cystic artery was divided. Hook electrocautery was used to remove the gallbladder from the gallbladder fossa. Prior to amputating the gallbladder, we again re-evaluated our clip structures, there was no evidence of bleeding or bilious extravasation. The gallbladder was amputated and removed it through the umbilical incision, I did use a ghada forceps to spread the fascia minimally to aid this extraction. Multiple sutures of 0 Vicryl was used to close the fascial defect at the gallbladder extraction site. The skin was closed using 4-0 Monocryl. The patient tolerated the procedure well, was extubated, and sent to the recovery room in stable condition. All counts were correct SPECIMEN: Gallbladder [facility] 01-09-2025 Procedure note Images from the original note were not included. DEPARTMENT OF SURGERY OPERATIVE NOTE DATE OF PROCEDURE: 01/09/2025 ATTENDING SURGEON: Tarun Farris MD, MPH APPLICATION PACKAGING CONSULTANT: Shay Lange, PGY5 PREOPERATIVE DIAGNOSIS: Biliary Dyskinesia POSTOPERATIVE DIAGNOSIS: Same, plus chronic cholecystitis OPERATION: Laparoscopic Cholecystectomy ANESTHESIA: General anesthesia ESTIMATED BLOOD LOSS: <10cc COMPLICATIONS: None SPECIMENS: Gallbladder HISTORY: The patient is a 19 y.o. female with history of above preop diagnosis. The patient presented to the outpatient office with the complaints of abdominal pain, associated with eating, post-prandial in nature, as well as occasional nausea. Objective evidence was obtained and this combined with the patient's subjective evidence led to the above aforementioned pre-operative diagnosis. I explained the risk, benefits, expected outcome, and alternatives to the procedure. Patient understood and was in agreement to proceed with operation. PROCEDURE: The patient was brought to the operating room and placed in supine position. They were appropriately identified by operating room staff. After initiation of general anesthesia by the Anesthesia Department, a CRISTY block was performed - please see their documentation for this elsewhere. The abdomen was prepped and draped normal sterile fashion. An appropriate surgical timeout was performed and all agreed to proceed with operative intervention as planned. A Veress needle was placed in the left upper quadrant and insufflated without difficulty. We placed four separate 5 mm trocars, one in the left upper quadrant, 2 in the right upper quadrant, and then 1 additional 5 mm trocar in the periumbilical position. Upon entering the abdomen, the gallbladder was identified, grasped, and retracted cephalad. The peritoneum overlying the junction of the cystic duct was stripped free. Hook electrocautery was used to detach the lateral peritoneal attachments, the left and right side of the gallbladder up towards the fundus. We isolated the cystic duct and cystic artery and dissected the posterior aspect of the gallbladder from the gallbladder fossa. The critical view of safety was achieved to the best of our ability as limited by patient and disease factors. There were only 2 structures noted, the cystic duct and the cystic artery. We placed 2 Hemolock clips on the stay side of the cystic duct and 1 clip on the gallbladder side and the cystic duct was divided. We placed 2 clips on the stay side of the cystic artery, 1 clip on the gallbladder side and the cystic artery was divided. Hook electrocautery was used to remove the gallbladder from the gallbladder fossa. Prior to amputating the gallbladder, we again re-evaluated our clip structures, there was no evidence of bleeding or bilious extravasation. The gallbladder was amputated and removed it through the umbilical incision, I did use a ghada forceps to spread the fascia minimally to aid this extraction. Multiple sutures of 0 Vicryl was used to close the fascial defect at the gallbladder extraction site. The skin was closed using 4-0 Monocryl. The patient tolerated the procedure well, was extubated, and sent to the recovery room in stable condition. All counts were correct SPECIMEN: Gallbladder [facility] 01-09-2025 History and physical note Images from the original note were not included. [facility] Patient Name: Judith Bedolla Date: 01/09/25 Update History & Physical for OR Procedure I have interviewed and examined the patient and reviewed the recent History and Physical. There have been no changes to the recent H&P documentation. The risk, benefits, expected outcome, and alternative to the recommended procedure have been discussed with the patient. Patient understands and wants to proceed with the procedure. The surgical consent form has been signed. Impression: 19 y.o. patient with biliary dyskinesia Problem List[1] Plan: Plan for laparoscopic cholecystectomy, possible open Department of Surgery Please see my recent office note for further details: General Surgery History and Physical Tarun Farris MD, MPH Patient ID: Judith Bedolla [id number] 19 y.o. 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 female who presents with abnormal biliary imaging, abdominal discomfort, nausea and occasional emesis. Patient has had these symptoms for months and has undergone a thorough outpatient evaluation with Dr. Figueroa which has included. EGD, colonoscopy, US abdomen, HIDA scan, gastric emptying, CTAP. Patient states abdominal discomfort is generalized, with associated bloating, worse after eating. She notes pain is present in upper abdomen specifically after eating fried, greasy foods. She has switched to gluten free foods but states it has not significantly helped overall. She did have a duodenal biopsy showing intraopithelial lymphocytosis, concerning for possible celiac disease. She had gastritis and apparently noted some bile at the time of EGD. H. Pylori testing was negative. TI biopsy was negative for IBD, as were scattered colon biopsies. She has intermittent diarrhea and formed stool. Never has blood in stool. US obtained showed sludge. HIUDA with EF of 21% and she admits discomfort with the administration with CCK during the exam. She is set to have an MRI in February because they did see a small cyst in the right lobe of her liver and small hemangioma in the right lobe of the liver as well. CBD 1.8mm. CRP WNL. 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 She and her family are going on vacation in February to [place] and they are looking to have cholecystectomy GREG given workup and discussions. No prior abdominal surgeries. No anticoagulants or other notable medications. [Medical History] [Medical History] Past Medical History No past medical history on file. [Surgical History] [Surgical History] Past Surgical History Procedure Laterality Date LIP SURGERY (HISTORICAL) 2006 Medications Prior to Visit: Prior to Admission medications Not on File Allergies: Patient has no known allergies. [Social History] [Social History] Socioeconomic History Marital status: Single Tobacco Use Smoking status: Never Smokeless tobacco: Never Social Drivers of Health Financial Resource Strain: Low Risk (02/07/2023) Received from [facility] Overall Financial Resource Strain (CARDIA) Difficulty of Paying Living Expenses: Not hard at all Food Insecurity: No Food Insecurity (02/07/2023) Received from [facility] Hunger Vital Sign Worried About Running Out of Food in the Last Year: Never true Ran Out of Food in the Last Year: Never true Transportation Needs: No Transportation Needs (02/07/2023) Received from [facility] PRAPARE - Transportation Lack of Transportation (Medical): No Lack of Transportation (Non-Medical): No Physical Activity: Sufficiently Active (02/07/2023) Received from [facility] Exercise Vital Sign Days of Exercise per Week: 6 days Minutes of Exercise per Session: 60 min Housing Stability: Low Risk (02/07/2023) Received from [facility] Housing Stability Vital Sign Unable to Pay for Housing in the Last Year: No Number of Places Lived in the Last Year: 1 Unstable Housing in the Last Year: No [Family History] [Family History] No family history on file. Review of Systems: Review of Systems Constitutional: Negative for chills, fever and unexpected weight change. HENT: Negative for drooling, facial swelling, hearing loss, nosebleeds, rhinorrhea, sneezing and trouble swallowing. Respiratory: Negative for apnea, cough, chest tightness, shortness of breath, wheezing and stridor. Cardiovascular: Negative for chest pain and leg swelling. Gastrointestinal: Positive for abdominal distention, abdominal pain, diarrhea, nausea and vomiting. Negative for blood in stool and constipation. Endocrine: Negative. Genitourinary: Negative for decreased urine volume, difficulty urinating, dysuria, flank pain and urgency. Musculoskeletal: Negative for gait problem, joint swelling and myalgias. Skin: Negative for color change, pallor, rash and wound. Allergic/Immunologic: Negative. Neurological: Negative for dizziness, speech difficulty, weakness, light-headedness and headaches. Hematological: Does not bruise/bleed easily. Psychiatric/Behavioral: Negative for agitation, behavioral problems, confusion and decreased concentration. The patient is nervous/anxious. Physical Exam: BP 112/68 Pulse 92 Temp 36.3 C (97.4 F) Ht 5' 7 (1.702 m) Wt 153 lb 6.4 oz (69.6 kg) BMI 24.03 kg/m Physical Exam Constitutional: General: She is not in acute distress. Appearance: She is not ill-appearing, toxic-appearing or diaphoretic. Comments: Appears stated age HENT: Head: Normocephalic and atraumatic. Right Ear: External ear normal. Left Ear: External ear normal. Nose: Nose normal. No rhinorrhea. Mouth/Throat: Mouth: Mucous membranes are moist. Eyes: General: No scleral icterus. Right eye: No discharge. Left eye: No discharge. Extraocular Movements: Extraocular movements intact. Conjunctiva/sclera: Conjunctivae normal. Cardiovascular: Rate and Rhythm: Normal rate. Pulses: Normal pulses. Pulmonary: Effort: Pulmonary effort is normal. No respiratory distress. Breath sounds: No wheezing. Abdominal: General: There is no distension. Palpations: There is no mass. Tenderness: There is abdominal tenderness (RUQ to deep palpation). There is no guarding or rebound. Hernia: No hernia is present. Musculoskeletal: General: No swelling, tenderness, deformity or signs of injury. Normal range of motion. Cervical back: Normal range of motion. No rigidity. Skin: General: Skin is warm and dry. Neurological: General: No focal deficit present. Mental Status: She is alert. Cranial Nerves: No cranial nerve deficit (No gross abnormality). Psychiatric: Mood and Affect: Mood normal. Behavior: Behavior normal. Thought Content: Thought content normal. No orders of the defined types were placed in this encounter. Impression/Treatment Plan: Judith Bedolla is a 19 y.o. female with abdominal pain, nausea, and extensive workup concerning for biliary dyskinesia, biliary sludge, possible chronic cholecystitis. -Discussed pathophysiology of biliary disease at length. -Reviewed imaging and workup at length with patient and mother -Discussed extensive workup to this point and surgery in detail, including all risks, benefits, and alternatives. -Patient and mother are motivated for surgery GREG and understand all concepts. They would like surgery this week and we will accommodate this. Patient counseled on risks, benefits, and alternatives of treatment plan at length while in the office today. Patient states an understandingand willingness to proceed with plan. Moderate MDM with plan for surgery extensively discussed. Tarun Farris MD 01/05/2025 6:06 PM [1] Patient Active Problem List Diagnosis Biliary dyskinesia Chronic cholecystitis Biliary sludge determined by ultrasound [facility] 01-09-2025 Note [facility] Patient Name: Judith Bedolla Date: 01/09/25 Update History & Physical for OR Procedure I have interviewed and examined the patient and reviewed the recent History and Physical. There have been no changes to the recent H&P documentation. The risk, benefits, expected outcome, and alternative to the recommended procedure have been discussed with the patient. Patient understands and wants to proceed with the procedure. The surgical consent form has been signed. Impression: 19 y.o. patient with biliary dyskinesia Problem List[1] Plan: Plan for laparoscopic cholecystectomy, possible open Department of Surgery Please see my recent office note for further details: General Surgery History and Physical Tarun Farris MD, MPH Patient ID: Judith Bedolla [id number] 19 y.o. 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 female who presents with abnormal biliary imaging, abdominal discomfort, nausea and occasional emesis. Patient has had these symptoms for months and has undergone a thorough outpatient evaluation with Dr. Figueroa which has included. EGD, colonoscopy, US abdomen, HIDA scan, gastric emptying, CTAP. Patient states abdominal discomfort is generalized, with associated bloating, worse after eating. She notes pain is present in upper abdomen specifically after eating fried, greasy foods. She has switched to gluten free foods but states it has not significantly helped overall. She did have a duodenal biopsy showing intraopithelial lymphocytosis, concerning for possible celiac disease. She had gastritis and apparently noted some bile at the time of EGD. H. Pylori testing was negative. TI biopsy was negative for IBD, as were scattered colon biopsies. She has intermittent diarrhea and formed stool. Never has blood in stool. US obtained showed sludge. HIUDA with EF of 21% and she admits discomfort with the administration with CCK during the exam. She is set to have an MRI in February because they did see a small cyst in the right lobe of her liver and small hemangioma in the right lobe of the liver as well. CBD 1.8mm. CRP WNL. 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 She and her family are going on vacation in February to [place] and they are looking to have cholecystectomy GREG given workup and discussions. No prior abdominal surgeries. No anticoagulants or other notable medications. [Medical History] [Medical History] Past Medical History No past medical history on file. [Surgical History] [Surgical History] Past Surgical History Procedure Laterality Date LIP SURGERY (HISTORICAL) 2006 Medications Prior to Visit: Prior to Admission medications Not on File Allergies: Patient has no known allergies. [Social History] [Social History] Socioeconomic History Marital status: Single Tobacco Use Smoking status: Never Smokeless tobacco: Never Social Drivers of Health Financial Resource Strain: Low Risk (02/07/2023) Received from [facility] Overall Financial Resource Strain (CARDIA) Difficulty of Paying Living Expenses: Not hard at all Food Insecurity: No Food Insecurity (02/07/2023) Received from [facility] Hunger Vital Sign Worried About Running Out of Food in the Last Year: Never true Ran Out of Food in the Last Year: Never true Transportation Needs: No Transportation Needs (02/07/2023) Received from [facility] PRAPARE - Transportation Lack of Transportation (Medical): No Lack of Transportation (Non-Medical): No Physical Activity: Sufficiently Active (02/07/2023) Received from [facility] Exercise Vital Sign Days of Exercise per Week: 6 days Minutes of Exercise per Session: 60 min Housing Stability: Low Risk (02/07/2023) Received from [facility] Housing Stability Vital Sign Unable to Pay for Housing in the Last Year: No Number of Places Lived in the Last Year: 1 Unstable Housing in the Last Year: No [Family History] [Family History] No family history on file. Review of Systems: Review of Systems Constitutional: Negative for chills, fever and unexpected weight change. HENT: Negative for drooling, facial swelling, hearing loss, nosebleeds, rhinorrhea, sneezing and trouble swallowing. Respiratory: Negative for apnea, cough, chest tightness, shortness of breath, wheezing and stridor. Cardiovascular: Negative for chest pain and leg swelling. Gastrointestinal: Positive for abdominal distention, abdominal pain, diarrhea, nausea and vomiting. Negative for blood in stool and constipation. Endocrine: Negative. Genitourinary: Negative for decrease (more content not included)... [facility] 01-09-2025 History and physical note Images from the original note were not included. [facility] Patient Name: Judith Bedolla Date: 01/09/25 Update History & Physical for OR Procedure I have interviewed and examined the patient and reviewed the recent History and Physical. There have been no changes to the recent H&P documentation. The risk, benefits, expected outcome, and alternative to the recommended procedure have been discussed with the patient. Patient understands and wants to proceed with the procedure. The surgical consent form has been signed. Impression: 19 y.o. patient with biliary dyskinesia Problem List[1] Plan: Plan for laparoscopic cholecystectomy, possible open Department of Surgery Please see my recent office note for further details: General Surgery History and Physical Tarun Farris MD, MPH Patient ID: Judith Bedolla [id number] 19 y.o. 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 female who presents with abnormal biliary imaging, abdominal discomfort, nausea and occasional emesis. Patient has had these symptoms for months and has undergone a thorough outpatient evaluation with Dr. Figueroa which has included. EGD, colonoscopy, US abdomen, HIDA scan, gastric emptying, CTAP. Patient states abdominal discomfort is generalized, with associated bloating, worse after eating. She notes pain is present in upper abdomen specifically after eating fried, greasy foods. She has switched to gluten free foods but states it has not significantly helped overall. She did have a duodenal biopsy showing intraopithelial lymphocytosis, concerning for possible celiac disease. She had gastritis and apparently noted some bile at the time of EGD. H. Pylori testing was negative. TI biopsy was negative for IBD, as were scattered colon biopsies. She has intermittent diarrhea and formed stool. Never has blood in stool. US obtained showed sludge. HIUDA with EF of 21% and she admits discomfort with the administration with CCK during the exam. She is set to have an MRI in February because they did see a small cyst in the right lobe of her liver and small hemangioma in the right lobe of the liver as well. CBD 1.8mm. CRP WNL. 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 She and her family are going on vacation in February to [place] and they are looking to have cholecystectomy GREG given workup and discussions. No prior abdominal surgeries. No anticoagulants or other notable medications. [Medical History] [Medical History] Past Medical History No past medical history on file. [Surgical History] [Surgical History] Past Surgical History Procedure Laterality Date LIP SURGERY (HISTORICAL) 2006 Medications Prior to Visit: Prior to Admission medications Not on File Allergies: Patient has no known allergies. [Social History] [Social History] Socioeconomic History Marital status: Single Tobacco Use Smoking status: Never Smokeless tobacco: Never Social Drivers of Health Financial Resource Strain: Low Risk (02/07/2023) Received from [facility] Overall Financial Resource Strain (CARDIA) Difficulty of Paying Living Expenses: Not hard at all Food Insecurity: No Food Insecurity (02/07/2023) Received from [facility] Hunger Vital Sign Worried About Running Out of Food in the Last Year: Never true Ran Out of Food in the Last Year: Never true Transportation Needs: No Transportation Needs (02/07/2023) Received from [facility] PRAPARE - Transportation Lack of Transportation (Medical): No Lack of Transportation (Non-Medical): No Physical Activity: Sufficiently Active (02/07/2023) Received from [facility] Exercise Vital Sign Days of Exercise per Week: 6 days Minutes of Exercise per Session: 60 min Housing Stability: Low Risk (02/07/2023) Received from [facility] Housing Stability Vital Sign Unable to Pay for Housing in the Last Year: No Number of Places Lived in the Last Year: 1 Unstable Housing in the Last Year: No [Family History] [Family History] No family history on file. Review of Systems: Review of Systems Constitutional: Negative for chills, fever and unexpected weight change. HENT: Negative for drooling, facial swelling, hearing loss, nosebleeds, rhinorrhea, sneezing and trouble swallowing. Respiratory: Negative for apnea, cough, chest tightness, shortness of breath, wheezing and stridor. Cardiovascular: Negative for chest pain and leg swelling. Gastrointestinal: Positive for abdominal distention, abdominal pain, diarrhea, nausea and vomiting. Negative for blood in stool and constipation. Endocrine: Negative. Genitourinary: Negative for decreased urine volume, difficulty urinating, dysuria, flank pain and urgency. Musculoskeletal: Negative for gait problem, joint swelling and myalgias. Skin: Negative for color change, pallor, rash and wound. Allergic/Immunologic: Negative. Neurological: Negative for dizziness, speech difficulty, weakness, light-headedness and headaches. Hematological: Does not bruise/bleed easily. Psychiatric/Behavioral: Negative for agitation, behavioral problems, confusion and decreased concentration. The patient is nervous/anxious. Physical Exam: BP 112/68 Pulse 92 Temp 36.3 C (97.4 F) Ht 5' 7 (1.702 m) Wt 153 lb 6.4 oz (69.6 kg) BMI 24.03 kg/m Physical Exam Constitutional: General: She is not in acute distress. Appearance: She is not ill-appearing, toxic-appearing or diaphoretic. Comments: Appears stated age HENT: Head: Normocephalic and atraumatic. Right Ear: External ear normal. Left Ear: External ear normal. Nose: Nose normal. No rhinorrhea. Mouth/Throat: Mouth: Mucous membranes are moist. Eyes: General: No scleral icterus. Right eye: No discharge. Left eye: No discharge. Extraocular Movements: Extraocular movements intact. Conjunctiva/sclera: Conjunctivae normal. Cardiovascular: Rate and Rhythm: Normal rate. Pulses: Normal pulses. Pulmonary: Effort: Pulmonary effort is normal. No respiratory distress. Breath sounds: No wheezing. Abdominal: General: There is no distension. Palpations: There is no mass. Tenderness: There is abdominal tenderness (RUQ to deep palpation). There is no guarding or rebound. Hernia: No hernia is present. Musculoskeletal: General: No swelling, tenderness, deformity or signs of injury. Normal range of motion. Cervical back: Normal range of motion. No rigidity. Skin: General: Skin is warm and dry. Neurological: General: No focal deficit present. Mental Status: She is alert. Cranial Nerves: No cranial nerve deficit (No gross abnormality). Psychiatric: Mood and Affect: Mood normal. Behavior: Behavior normal. Thought Content: Thought content normal. No orders of the defined types were placed in this encounter. Impression/Treatment Plan: Judith Bedolla is a 19 y.o. female with abdominal pain, nausea, and extensive workup concerning for biliary dyskinesia, biliary sludge, possible chronic cholecystitis. -Discussed pathophysiology of biliary disease at length. -Reviewed imaging and workup at length with patient and mother -Discussed extensive workup to this point and surgery in detail, including all risks, benefits, and alternatives. -Patient and mother are motivated for surgery GREG and understand all concepts. They would like surgery this week and we will accommodate this. Patient counseled on risks, benefits, and alternatives of treatment plan at length while in the office today. Patient states an understandingand willingness to proceed with plan. Moderate MDM with plan for surgery extensively discussed. Tarun Farris MD 01/05/2025 6:06 PM [1] Patient Active Problem List Diagnosis Biliary dyskinesia Chronic cholecystitis Biliary sludge determined by ultrasound documented in this encounter [facility] 01-09-2025 Nurse Note Patient educated on importance of coughing/ deep breathing after surgery to reduce risk of pneumonia. Patient educated on importance of early mobility to reduce the risk of blood clots. Falls prevention information reviewed with patient. Post-operative pain control and ways to prevent constipation discussed with patient. [facility] 01-06-2025 Note Patient: Judith Bedolla Procedure Information Date/Time: 01/09/25 1115 Procedure: LAPAROSCOPIC CHOLECYSTECTOMY, POSSIBLE OPEN (Abdomen) - Please schedule for 90 mins Location: [address] Operating Room Surgeons: Tarun Farris MD Relevant Problems No relevant active problems Past Medical History: Past Medical History: 12/04/24: Celiac disease 12/04/24: Colon polyp 2021: Fractures 01/27: Irritable bowel syndrome No date: Motion sickness Past Surgical History: Past Surgical History: 11/12/2024: COLONOSCOPY 2006: LIP SURGERY (HISTORICAL) 11/12/2024: UPPER GASTROINTESTINAL ENDOSCOPY No date: WISDOM TOOTH EXTRACTION Social History: TOBACCO: reports that she has never smoked. She has never used smokeless tobacco. ETOH: reports no history of alcohol use. Social History Substance and Sexual Activity Drug Use Never Family History: Family History[1] Screening: Having periods Clinical information reviewed: Tobacco Allergies Meds Med Hx Surg Hx OB Status Fam Hx Soc Hx Physical Exam Airway Mallampati: I TM distance: >3 FB Neck ROM: full Mouth Open: normalendotracheal tube not in place Cardiovascular Dental Comments: [place] teeth missing Pulmonary Abdominal Anesthesia Plan patient is NPO appropriate Any family history or previous problems with anesthesia no ASA 1 general Any family history or previous problems with anesthesia no The patient is not a current smoker. Anesthetic plan and risks discussed with patient. DEDRICK Screening STOP-Bang Total Score: 1 Labs: No results found for: WBC, HGB, HCT, MCV, PLT No results found for: SODIUM, NA, POTASSIUM, K, CHLORIDE, CL, CO2, BUN, CREATININE, GLUCOSE, CALCIUM, PROT, BILIRUBINFL, ALKPHOS, AST, ALT, EGFR, GLOB Pain Score: 4 No echocardiogram results found for the past 14 days No results found for this or any previous visit. Equipment Requests: Additional Equipment Requests Block Team [1] No family history on file. [facility] 01-06-2025 Note Comprehensive PreSur gical History and Physical ? Name: Judith Bedolla : 2005 (Age-19 y.o.) Date of Service: Pt seen/examined on 01/08/2025 Procedure Information Date/Time: 01/09/25 1115 Procedure: LAPAROSCOPIC CHOLECYSTECTOMY, POSSIBLE OPEN (Abdomen) - Please schedule for 90 mins Location: [address] Operating Room Surgeons: Tarun Farris MD Chief Complaint: abdominal discomfort, nausea and occasional emesis. Patient has had these symptoms for months ASSESSMENT/PLAN: Patient is considered low risk for this intermediate risk procedure/surgery noted above with no reducible risk factors. Based on the above evaluation, the benefits of the planned procedure likely exceed the risks. The patient is medically optimized to proceed with the planned procedure without any further cardiopulmonary testing. 1) Biliary dyskinesia ; Managed per surgery 2) Chronic cholecystitis ; Managed per surgery 3) SNORE SOMETIMES 4) H/O MOTION SICKNESS Visit Type: Pre-Admission Testing Visit Labs Ordered: NO - NOT INDICATED FOR THIS PROCEDURE Sleep Referral Ordered: NO - NEGATIVE SCREEN PER SLEEP REFERRAL PROTOCOL Total time spent (which include face to face and non face to face encounters) : 35 minutes Toxic drug monitoring/narrow therapeutic index drug monitoring : # Drug name : None # Route administered : N/A # Method of monitoring : N/A PAT Protocol referenced includes: 1. Anesthesia Lab Protocol Orders 2. Perioperative Cardiovascular Risk Assessment 3. Anesthesia Assessment 4. Pain Assessment and Acute Pain Service Consult (if appropriate) 5. Medical Clearance/Consult from Internal Medicine (IMS) 6. Shower/Wash Order (for designated surgeries) 7. DEDRICK Screen and Sleep Clinic Referral (if appropriate) History Of Present Illness: Patient came for PAT along with her mom ( mom waiting in the lobby ) 19 y.o. female who presents with chief complaint mentioned above. Per surgeon's note dated 01/05/25 Judith Bedolla is a 19 y.o. female who presents with abnormal biliary imaging, abdominal discomfort, nausea and occasional emesis. Patient has had these symptoms for months and has undergone a thorough outpatient evaluation with Dr. Figueroa which has included. EGD, colonoscopy, US abdomen, HIDA scan, gastric emptying, CTAP. Patient states abdominal discomfort is generalized, with associated bloating, worse after eating. She notes pain is present in upper abdomen specifically after eating fried, greasy foods. She has switched to gluten free foods but states it has not significantly helped overall. She did have a duodenal biopsy showing intraopithelial lymphocytosis, concerning for possible celiac disease. She had gastritis and apparently noted some bile at the time of EGD. H. Pylori testing was negative. TI biopsy was negative for IBD, as were scattered colon biopsies. She has intermittent diarrhea and formed stool. Never has blood in stool. US obtained showed sludge. HIUDA with EF of 21% and she admits discomfort with the administration with CCK during the exam. She is set to have an MRI in February because they did see a small cyst in the right lobe of her liver and small hemangioma in the right lobe of the liver as well. CBD 1.8mm. CRP WNL. 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 She and her family are going on vacation in February to [place] and they are looking to have cholecystectomy GREG given workup and discussions. No prior abdominal surgeries. No anticoagulants or other notable medications. Pt has seen the surgeon and elected for above procedure. Denies Hx of HTN, DM, Asthma/COPD, DEDRICK, CAD, CHF, a fib, ID, TIA/CVA, DVT/PE Hx problems with anesthesia? - Denies Past Medical History: Past Medical History: 12/04/24: Celiac disease 12/04/24: Colon polyp 2021: Fractures 01/27: Irritable bowel syndrome No date: Motion sickness Past Surgical History: Past Surgical History: 11/12/2024: COLONOSCOPY 2006: LIP SURGERY (HISTORICAL) 11/12/2024: UPPER GASTROINTESTINAL ENDOSCOPY No date: WISDOM TOOTH EXTRACTION Medications Prior to Admission: Current Medications[1] CHRONIC NARCOTIC USAGE: No Allergies: Patient has no known allergies. If patient has opioid allergy, is it okay to take Acetaminophen: Yes Social History: TOBACCO: reports that she has never smoked. She has never used smokeless tobacco. ETOH: reports no history of alcohol use. Social History Substance and Sexual Activity Drug Use Never Family History: Family History[2] REVIEW OF SYSTEMS: Review of Systems Constitutional: Negative for chills and fever. HENT: Negative. Respiratory: Negative for shortness of breath. Cardiovascular: Negat (more content not included)... [facility] 01-05-2025 History of Present illness Narrative Images from the original note were not included. General Surgery History and Physical Tarun Farris MD, MPH Patient ID: Judith Bedolla [id number] 19 y.o. 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 female who presents with abnormal biliary imaging, abdominal discomfort, nausea and occasional emesis. Patient has had these symptoms for months and has undergone a thorough outpatient evaluation with Dr. Figueroa which has included. EGD, colonoscopy, US abdomen, HIDA scan, gastric emptying, CTAP. Patient states abdominal discomfort is generalized, with associated bloating, worse after eating. She notes pain is present in upper abdomen specifically after eating fried, greasy foods. She has switched to gluten free foods but states it has not significantly helped overall. She did have a duodenal biopsy showing intraopithelial lymphocytosis, concerning for possible celiac disease. She had gastritis and apparently noted some bile at the time of EGD. H. Pylori testing was negative. TI biopsy was negative for IBD, as were scattered colon biopsies. She has intermittent diarrhea and formed stool. Never has blood in stool. US obtained showed sludge. HIUDA with EF of 21% and she admits discomfort with the administration with CCK during the exam. She is set to have an MRI in February because they did see a small cyst in the right lobe of her liver and small hemangioma in the right lobe of the liver as well. CBD 1.8mm. CRP WNL. 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 She and her family are going on vacation in February to [place] and they are looking to have cholecystectomy GREG given workup and discussions. No prior abdominal surgeries. No anticoagulants or other notable medications. Medical History[1] Surgical History[2] Medications Prior to Visit: Prior to Admission medications Not on File Allergies: Patient has no known allergies. Social History[3] Family History[4] Review of Systems: Review of Systems Constitutional: Negative for chills, fever and unexpected weight change. HENT: Negative for drooling, facial swelling, hearing loss, nosebleeds, rhinorrhea, sneezing and trouble swallowing. Respiratory: Negative for apnea, cough, chest tightness, shortness of breath, wheezing and stridor. Cardiovascular: Negative for chest pain and leg swelling. Gastrointestinal: Positive for abdominal distention, abdominal pain, diarrhea, nausea and vomiting. Negative for blood in stool and constipation. Endocrine: Negative. Genitourinary: Negative for decreased urine volume, difficulty urinating, dysuria, flank pain and urgency. Musculoskeletal: Negative for gait problem, joint swelling and myalgias. Skin: Negative for color change, pallor, rash and wound. Allergic/Immunologic: Negative. Neurological: Negative for dizziness, speech difficulty, weakness, light-headedness and headaches. Hematological: Does not bruise/bleed easily. Psychiatric/Behavioral: Negative for agitation, behavioral problems, confusion and decreased concentration. The patient is nervous/anxious. Physical Exam: BP 112/68 Pulse 92 Temp 36.3 C (97.4 F) Ht 5' 7 (1.702 m) Wt 153 lb 6.4 oz (69.6 kg) BMI 24.03 kg/m Physical Exam Constitutional: General: She is not in acute distress. Appearance: She is not ill-appearing, toxic-appearing or diaphoretic. Comments: Appears stated age HENT: Head: Normocephalic and atraumatic. Right Ear: External ear normal. Left Ear: External ear normal. Nose: Nose normal. No rhinorrhea. Mouth/Throat: Mouth: Mucous membranes are moist. Eyes: General: No scleral icterus. Right eye: No discharge. Left eye: No discharge. Extraocular Movements: Extraocular movements intact. Conjunctiva/sclera: Conjunctivae normal. Cardiovascular: Rate and Rhythm: Normal rate. Pulses: Normal pulses. Pulmonary: Effort: Pulmonary effort is normal. No respiratory distress. Breath sounds: No wheezing. Abdominal: General: There is no distension. Palpations: There is no mass. Tenderness: There is abdominal tenderness (RUQ to deep palpation). There is no guarding or rebound. Hernia: No hernia is present. Musculoskeletal: General: No swelling, tenderness, deformity or signs of injury. Normal range of motion. Cervical back: Normal range of motion. No rigidity. Skin: General: Skin is warm and dry. Neurological: General: No focal deficit present. Mental Status: She is alert. Cranial Nerves: No cranial nerve deficit (No gross abnormality). Psychiatric: Mood and Affect: Mood normal. Behavior: Behavior normal. Thought Content: Thought content normal. No orders of the defined types were placed in this encounter. Impression/Treatment Plan: Judith Bedolla is a 19 y.o. female with abdominal pain, nausea, and extensive workup concerning for biliary dyskinesia, biliary sludge, possible chronic cholecystitis. -Discussed pathophysiology of biliary disease at length. -Reviewed imaging and workup at length with patient and mother -Discussed extensive workup to this point and surgery in detail, including all risks, benefits, and alternatives. -Patient and mother are motivated for surgery GREG and understand all concepts. They would like surgery this week and we will accommodate this. Patient counseled on risks, benefits, and alternatives of treatment plan at length while in the office today. Patient states an understandingand willingness to proceed with plan. Moderate MDM with plan for surgery extensively discussed. Tarun Farris MD 01/05/2025 6:06 PM [1] No past medical history on file. [2] Past Surgical History: Procedure Laterality Date LIP SURGERY (HISTORICAL) 2006 [3] Social History Socioeconomic History Marital status: Single Tobacco Use Smoking status: Never Smokeless tobacco: Never Social Drivers of Health Financial Resource Strain: Low Risk (02/07/2023) Received from [facility] Overall Financial Resource Strain (CARDIA) Difficulty of Paying Living Expenses: Not hard at all Food Insecurity: No Food Insecurity (02/07/2023) Received from [facility] Hunger Vital Sign Worried About Running Out of Food in the Last Year: Never true Ran Out of Food in the Last Year: Never true Transportation Needs: No Transportation Needs (02/07/2023) Received from [facility] PRAPARE - Transportation Lack of Transportation (Medical): No Lack of Transportation (Non-Medical): No Physical Activity: Sufficiently Active (02/07/2023) Received from [facility] Exercise Vital Sign Days of Exercise per Week: 6 days Minutes of Exercise per Session: 60 min Housing Stability: Low Risk (02/07/2023) Received from [facility] Housing Stability Vital Sign Unable to Pay for Housing in the Last Year: No Number of Places Lived in the Last Year: 1 Unstable Housing in the Last Year: No [4] No family history on file. documented in this encounter [facility] 01-05-2025 Note General Surgery History and Physical Tarun Farris MD, MPH Patient ID: Judith Bedolla [id number] 19 y.o. 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 female who presents with abnormal biliary imaging, abdominal discomfort, nausea and occasional emesis. Patient has had these symptoms for months and has undergone a thorough outpatient evaluation with Dr. Figueroa which has included. EGD, colonoscopy, US abdomen, HIDA scan, gastric emptying, CTAP. Patient states abdominal discomfort is generalized, with associated bloating, worse after eating. She notes pain is present in upper abdomen specifically after eating fried, greasy foods. She has switched to gluten free foods but states it has not significantly helped overall. She did have a duodenal biopsy showing intraopithelial lymphocytosis, concerning for possible celiac disease. She had gastritis and apparently noted some bile at the time of EGD. H. Pylori testing was negative. TI biopsy was negative for IBD, as were scattered colon biopsies. She has intermittent diarrhea and formed stool. Never has blood in stool. US obtained showed sludge. HIUDA with EF of 21% and she admits discomfort with the administration with CCK during the exam. She is set to have an MRI in February because they did see a small cyst in the right lobe of her liver and small hemangioma in the right lobe of the liver as well. CBD 1.8mm. CRP WNL. 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 She and her family are going on vacation in February to [place] and they are looking to have cholecystectomy GREG given workup and discussions. No prior abdominal surgeries. No anticoagulants or other notable medications. Medical History[1] Surgical History[2] Medications Prior to Visit: Prior to Admission medications Not on File Allergies: Patient has no known allergies. Social History[3] Family History[4] Review of Systems: Review of Systems Constitutional: Negative for chills, fever and unexpected weight change. HENT: Negative for drooling, facial swelling, hearing loss, nosebleeds, rhinorrhea, sneezing and trouble swallowing. Respiratory: Negative for apnea, cough, chest tightness, shortness of breath, wheezing and stridor. Cardiovascular: Negative for chest pain and leg swelling. Gastrointestinal: Positive for abdominal distention, abdominal pain, diarrhea, nausea and vomiting. Negative for blood in stool and constipation. Endocrine: Negative. Genitourinary: Negative for decreased urine volume, difficulty urinating, dysuria, flank pain and urgency. Musculoskeletal: Negative for gait problem, joint swelling and myalgias. Skin: Negative for color change, pallor, rash and wound. Allergic/Immunologic: Negative. Neurological: Negative for dizziness, speech difficulty, weakness, light-headedness and headaches. Hematological: Does not bruise/bleed easily. Psychiatric/Behavioral: Negative for agitation, behavioral problems, confusion and decreased concentration. The patient is nervous/anxious. Physical Exam: BP 112/68 Pulse 92 Temp 36.3 ?C (97.4 ?F) Ht 5' 7 (1.702 m) Wt 153 lb 6.4 oz (69.6 kg) BMI 24.03 kg/m? Physical Exam Constitutional: General: She is not in acute distress. Appearance: She is not ill-appearing, toxic-appearing or diaphoretic. Comments: Appears stated age HENT: Head: Normocephalic and atraumatic. Right Ear: External ear normal. Left Ear: External ear normal. Nose: Nose normal. No rhinorrhea. Mouth/Throat: Mouth: Mucous membranes are moist. Eyes: General: No scleral icterus. Right eye: No discharge. Left eye: No discharge. Extraocular Movements: Extraocular movements intact. Conjunctiva/sclera: Conjunctivae normal. Cardiovascular: Rate and Rhythm: Normal rate. Pulses: Normal pulses. Pulmonary: Effort: Pulmonary effort is normal. No respiratory distress. Breath sounds: No wheezing. Abdominal: General: There is no distension. Palpations: There is no mass. Tenderness: There is abdominal tenderness (RUQ to deep palpation). There is no guarding or rebound. Hernia: No hernia is present. Musculoskeletal: General: No swelling, tenderness, deformity or signs of injury. Normal range of motion. Cervical back: Normal range of motion. No rigidity. Skin: General: Skin is warm and dry. Neurological: General: No focal deficit present. Mental Status: She is alert. Cranial Nerves: No cranial nerve deficit (No gross abnormality). Psychiatric: Mood and Affect: Mood normal. Behavior: Behavior normal. Thought Content: Thought content normal. No orders of the defined types were placed in this encounter. Impression/Treatment Plan: Judith Pablito Bedolla (more content not included)... [facility] 12-31-2024 Radiology Diagnostic study note [facility] Imaging Services [address] [place], [place] [id number] Abdomen Limited MR#: [id number] Acct: [id number] Name: JUDITH BEDOLLA Rep #: [id number] : 2005 F 19 From: Natalio Eid MD PCP: Dr. Cam Tan MD Status: REG CL I Study:Abdomen Limited Date of Exam: 12/05 02/27 Exam# [id number] Ordering Dr: Freddie Figueroa MD PROCEDURE: ABDOMEN LIMITED 12/30/2024 REASON FOR EXAM: BLOATING COMPARISON: Prior CT scan dated November 06, 2024. FINDINGS: Liver: Grossly normal size and echotexture. There is a 2.8 cm 1.5 cm 1.4 cm cyst in the superior aspect of the right lobe of the liver. There is also evidence of a 1 cm x 0.8 cm x 0.7 cm echogenic focus in the dome of the right lobe of the liver suggestive of a small hemangioma. Gallbladder: Small amount of sludge is seen within the gallbladder lumen. Common bile duct: Normal measuring 1.8 mm . Pancreas: Normal Other: Right kidney is unremarkable. US/Abdomen Limited IMPRESSION: Small cyst in the right lobe of the liver as well as a small hemangioma in the right lobe of the liver. Small amount of sludge is seen in the gallbladder lumen. Reading Location: [place] [address] CC: Dr. Freddie Figueroa MD; Dr. Cam Tan MD ~ Club Car Attendant: Signed [facility] 12-30-2024 Nuclear medicine Diagnostic study note [facility] Imaging Services [address] [place] [id number] Hepatobilliary Img w/Pharm Int MR#: [id number] Acct: [id number] Name: JUDITH BEDOLLA Rep #: [id number] : 2005 F 19 From: Natalio Eid MD PCP: Dr. Cam Tan MD Status: REG CL I Study:Hepatobilliary Img w/Pharm Int Date of Exam: 12/30/24 Exam# [id number] Ordering Dr: Freddie Figueroa MD PROCEDURE: HEPATOBILLIARY IMG W/PHARM INT 12/30/2024 REASON FOR EXAM: BLOATING, NAUSEA, GERD TECHNIQUE: Intravenous Choletec with planar imaging of the abdomen. 1.4 mcg Kinevac intravenously approximately 60 minutes after the radiopharmaceutical with additional anterior imaging and a region of interest drawn around the gallbladder to calculate a time-activity curve. RADIOPHARMACEUTICAL: Mebrofenin DOSE 6mCi COMPARISON: None FINDINGS: There is good uptake of the radiopharmaceutical by the liver. Normal gallbladder visualization with the gallbladder identified by 60 minutes. Gallbladder Ejection Fraction: 21 % (Normal is >35%) NM/Hepatobilliary Img w/Pharm Int IMPRESSION: Abnormally low ejection fraction of 21%. Reading Location: [place] [address] CC: Dr. Freddie Figueroa MD; Dr. Cam Tan MD ~ Club Car Attendant: Signed [facility] 12-10-2024 Note HNO ID: [id number] Author: ELENITA ROMERO MD Service: ? Author Type: Physician Type: Progress Notes Filed: 12/10/2024 18:40 Note Text: Judith Bedolla is a 19 year old female who presented for flask fitter ultrasound today. Encounter Diagnosis ICD-10-CM 1. Abdominal bloating R14.0 Please see report under imaging tab. Elenita Romero MD December 10, 2024 6:37 PM [facility] 12-10-2024 History of Present illness Narrative Judith Bedolla is a 19 year old female who presented for flask fitter ultrasound today. Encounter Diagnosis ICD-10-CM 1. Abdominal bloating R14.0 Please see report under imaging tab. Elenita Romero MD December 10, 2024 6:37 PM documented in this encounter [facility] 12-02-2024 Note HNO ID: [id number] Author: SOWMYA MACIEL MD Service: ? Author Type: Physician Type: Progress Notes Filed: 12/02/2024 09:18 Note Text: Youth Services Specialist offered: Patient declines. Obstetrics and Gynecology Concrete LOOM SETTER Visit Subjective Recording using ambient Kanjoya software for draft documentation of the visit was discussed with the patient/authorized international account representative; all questions welcomed and answered. Patient/authorized international account representative agreed to proceed CHIEF COMPLAINT: The patient is a 19-year-old female presenting for evaluation of bloating, pain, and nausea. HPI: Gastrointestinal Symptoms - Reports experiencing bloating, pain, and nausea for about three years. - Symptoms are exacerbated before and during her menstrual cycle, with increased bloating and intensified pain. - Recently developed acid reflux. - Currently under the care of a product operations associate at [facility] in [place]. - Underwent a colonoscopy and endoscopy, which revealed bile; further evaluation is ongoing. Menstrual Irregularities - Reports a history of painful and irregular menstrual cycles. - Noted a decrease in dysmenorrhea over time. - Menstrual cycle length ranges from 30 to 40 days. - Flow varies, lasting between 3 to 7 days. - Denies any vaginal itching, burning, or other symptoms suggestive of infection. Sexual Health - Denies any history of sexual activity. HISTORY: OB History Gravida0 Para0 Term0 Preterm0 AB0 Living0 SAB0 IAB0 Ectopic0 Multiple0 Live Births0 Territory Sales Manager Medical History LMP: 11/19/2024, Having periods Age at Menarche: Age at First : Age at Menopause: Territory Sales Manager Medical History Comments: Sexual Activity: Never; No partner data on record Contraception: No contraception data on record PAST MEDICAL HISTORY Diagnosis Date Abnormal findings on screening slightly elevated tyrosine Migraines NEGATIVE MEDICAL HISTORY 06/23/10 normal color vision PAST SURGICAL HISTORY Procedure Laterality Date LIP SURGERY PROC UNLISTED 05/05/2008 Hemangioma FAMILY HISTORY Problem Relation Age of Onset Cancer Father Breast cancer Hypertension Father MGGM Lipids Father father, PGM other (migraine) Father pat uncle Social History Tobacco Use Smoking status: Never Passive exposure: Never Smokeless tobacco: Never Vaping Use Vaping status: Never Used Substance Use Topics Alcohol use: Never Drug use: Never No current outpatient medications on file. No current facility-administered medications for this visit. ALLERGIES No Known Allergies REVIEW OF SYSTEMS: Gastrointestinal: (+) bloating, (+) abdominal pain, (+) nausea, (+) acid reflux Genitourinary: (+) irregular menses, (-) vaginal itching, (-) vaginal burning, (-) vaginal discharge Objective SENSITIVE EXAM: The sensitive examination was discussed with the Patient or Patient's Authorized Commodity Management Specialist. As applicable, any other physician, advance practice provider, medical student, or other health professional student that will be observing or involved in the sensitive examination for educational or training purposes was discussed with the Patient or Authorized Commodity Management Specialist. The Patient or Authorized Commodity Management Specialist has agreed to proceed with the sensitive examination. (Sensitive examination includes inspection and/or palpation of the breasts, pelvis, prostate and anorectal regions). PHYSICAL EXAM: BP 100/68 Wt 155 lb 12.8 oz (70.7kg) LMP 11/19/2024 General: No acute distress. Abd: Abdomen soft, non-distended, non-tender to palpation. Assessment AND Plan ASSESSMENT AND PLAN: 1. Abdominal bloating (R14.0) 2. Chronic abdominal pain (R10.9) 3. Nausea (R11.0) - Symptoms have been present for approximately 3 years, with exacerbation noted during menstrual cycles. - Recent colonoscopy and endoscopy performed by the [facility] in [place] revealed bile; no definitive diagnosis yet. - Abdominal exam reveals a soft, non-distended abdomen without tenderness. - Ordered pelvic ultrasound to evaluate uterus and ovaries; patient consented to both abdominal and transvaginal probes. - Discussed potential use of hormonal medication to manage cyclic symptoms if ultrasound findings are inconclusive. - Patient prefers to await ultrasound results before considering hormonal treatment. - Ultrasound to be scheduled at the meat scrubber; performed in this building. Labs AND imaging results from [facility] [facility] reviewed Medical Decision Making: Problems: Moderate: New problem with uncertain prognosis Data: Unique test result(s) reviewed: 3+ Risk: Low: Low risk from testing/treatment Medical Decision Making Level: 4 - Moderate Sowmya Maciel MD [facility] 12-02-2024 History of Present illness Narrative Images from the original note were not included. Youth Services Specialist offered: Patient declines. Obstetrics and Gynecology Concrete LOOM SETTER Visit Subjective Recording using ClipClock software for draft documentation of the visit was discussed with the patient/authorized international account representative; all questions welcomed and answered. Patient/authorized international account representative agreed to proceed CHIEF COMPLAINT: The patient is a 19-year-old female presenting for evaluation of bloating, pain, and nausea. HPI: Gastrointestinal Symptoms - Reports experiencing bloating, pain, and nausea for about three years. - Symptoms are exacerbated before and during her menstrual cycle, with increased bloating and intensified pain. - Recently developed acid reflux. - Currently under the care of a product operations associate at [facility] in [place]. - Underwent a colonoscopy and endoscopy, which revealed bile; further evaluation is ongoing. Menstrual Irregularities - Reports a history of painful and irregular menstrual cycles. - Noted a decrease in dysmenorrhea over time. - Menstrual cycle length ranges from 30 to 40 days. - Flow varies, lasting between 3 to 7 days. - Denies any vaginal itching, burning, or other symptoms suggestive of infection. Sexual Health - Denies any history of sexual activity. HISTORY: OB History Gravida0 Para0 Term0 Preterm0 AB0 Living0 SAB0 IAB0 Ectopic0 Multiple0 Live Births0 Territory Sales Manager Medical History LMP: 11/19/2024, Having periods Age at Menarche: Age at First : Age at Menopause: Territory Sales Manager Medical History Comments: Sexual Activity: Never; No partner data on record Contraception: No contraception data on record PAST MEDICAL HISTORY Diagnosis Date Abnormal findings on screening slightly elevated tyrosine Migraines NEGATIVE MEDICAL HISTORY 06/23/10 normal color vision PAST SURGICAL HISTORY Procedure Laterality Date LIP SURGERY PROC UNLISTED 05/05/2008 Hemangioma FAMILY HISTORY Problem Relation Age of Onset Cancer Father Breast cancer Hypertension Father MGGM Lipids Father father, PGM other (migraine) Father pat uncle Social History Tobacco Use Smoking status: Never Passive exposure: Never Smokeless tobacco: Never Vaping Use Vaping status: Never Used Substance Use Topics Alcohol use: Never Drug use: Never No current outpatient medications on file. No current facility-administered medications for this visit. ALLERGIES No Known Allergies REVIEW OF SYSTEMS: Gastrointestinal: (+) bloating, (+) abdominal pain, (+) nausea, (+) acid reflux Genitourinary: (+) irregular menses, (-) vaginal itching, (-) vaginal burning, (-) vaginal discharge Objective SENSITIVE EXAM: The sensitive examination was discussed with the Patient or Patient's Authorized Commodity Management Specialist. As applicable, any other physician, advance practice provider, medical student, or other health professional student that will be observing or involved in the sensitive examination for educational or training purposes was discussed with the Patient or Authorized Commodity Management Specialist. The Patient or Authorized Commodity Management Specialist has agreed to proceed with the sensitive examination. (Sensitive examination includes inspection and/or palpation of the breasts, pelvis, prostate and anorectal regions). PHYSICAL EXAM: BP 100/68 Wt 155 lb 12.8 oz (70.7kg) LMP 11/19/2024 General: No acute distress. Abd: Abdomen soft, non-distended, non-tender to palpation. Assessment & Plan ASSESSMENT AND PLAN: 1. Abdominal bloating (R14.0) 2. Chronic abdominal pain (R10.9) 3. Nausea (R11.0) - Symptoms have been present for approximately 3 years, with exacerbation noted during menstrual cycles. - Recent colonoscopy and endoscopy performed by the [facility] in [place] revealed bile; no definitive diagnosis yet. - Abdominal exam reveals a soft, non-distended abdomen without tenderness. - Ordered pelvic ultrasound to evaluate uterus and ovaries; patient consented to both abdominal and transvaginal probes. - Discussed potential use of hormonal medication to manage cyclic symptoms if ultrasound findings are inconclusive. - Patient prefers to await ultrasound results before considering hormonal treatment. - Ultrasound to be scheduled at the meat scrubber; performed in this building. Labs & imaging results from [facility] reviewed Medical Decision Making: Problems: Moderate: New problem with uncertain prognosis Data: Unique test result(s) reviewed: 3+ Risk: Low: Low risk from testing/treatment Medical Decision Making Level: 4 - Moderate Sowmya Maciel MD documented in this encounter [facility] 11-14-2024 Nuclear medicine Diagnostic study note [facility] Imaging Services [address] [place] [address] [id number] Gastric Emptying Study MR#: [id number] Acct: [id number] Name: JUDITH BEDOLLA Rep #: [id number] : 2005 F 19 From: Karon Samano MD PCP: Dr. Cam Tan MD Status: REG CL I Study:Gastric Emptying Study Date of Exam: 11/14/24 Exam# [id number] Ordering Dr: FREDDIE FIGUEROA PROCEDURE: GASTRIC EMPTYING STUDY N/A REASON FOR EXAM: ABD BLOATING/CRAMPING/NAUSEA/PAIN/CONS TIPATION SHARP BELLY PAIN. COMPARISON: CT ABDOMEN AND PELVIS DATED 11/06/2024. TECHNIQUE: Half-life: 40 MINUTES Gastroesophageal reflux: None. The patient ingested a standard meal of 1 cup of oatmeal with the radiopharmaceutical. Following ingestion, anterior and posterior gamma camera images were acquired at 60 second intervals for a total of 60 minutes. Regions of interest were drawn, and a geometric mean was used to calculate a [id number]. Medications taken in the past 24 hours that may affect gastric emptying: None Radiopharmaceutical: 1.2 mCi of Technetium Sulfur Colloid in oatmeal. FINDINGS: Percent activity remaining in stomach: 1 hour 31 % (normal 37-90%) NM/Gastric Emptying Study IMPRESSION: THERE IS 31% ACTIVITY REMAINING IN THE STOMACH AT 60 MINUTES, SLIGHTLY BELOW THENORMAL RANGE FOR GASTRIC EMPTYING. Reading Location: [place] [address] CC: FREDDIE FIGUEROA; Dr. Cam Tan MD ~ Club Car Attendant: Signed [facility] 11-07-2024 Radiology Diagnostic study note [facility] Imaging Services [address] [place], [place] [address] Abdomen/Pelvis WITH Contrast MR#: [id number] Acct: [id number] Name: JUDITH BEDOLLA Rep #: [id number] : 2005 F 19 From: Natalio Eid MD PCP: Dr. Cam Tan MD Status: REG CL I Study:Abdomen/Pelvis WITH Contrast Date of Ex am: 11/06/24 Exam# [id number] Ordering Dr: FREDDIE FIGUEROA PROCEDURE: ABDOMEN/PELVIS WITH CONTRAST 11/06/2024 REASON FOR EXAM: ABD PAIN W/WEIGHT LOSS Nausea. TECHNIQUE: Abdomen and pelvis CT with intravenous contrast. Coronal and Sagittal reconstruction series were provided. PATIENT PREPARATION: Per protocol ORAL CONTRAST TYPE: Given. CONTRAST: Isovue-300 VOLUME: 95 mL One or more dose reduction techniques were used (e.g., Automated exposure control, adjustment of the mA and/or kV according to patient size, use of iterative reconstruction technique. RADIATION DOSE SUMMARY: CTDlvol: 11 mGy DLP: 641.06 mGycm COMPARISON: Comparison is made with prior study dated October 28, 2023. FINDINGS: Lung bases: Unremarkable. Liver: Stable 1.7 cm cyst in the anterior medial portion of the superior right lobe of the liver. Gallbladder: Unremarkable Spleen: Normal size. Pancreas: Normal size without evidence of mass surrounding inflammation or ductal dilation. Adrenals: Unremarkable Kidneys: Normal renal sizes. No hydronephrosis. Bladder: Unremarkable Reproductive Organs: Normal uterine size and contour. 1.8 cm follicle in the left ovary. 1.1 cm follicle in the right ovary. Bowel: Unremarkable Appendix: Unremarkable Lymph nodes: Unremarkable Vasculature: The abdominal aorta and IVC are normal. Peritoneum / Retroperitoneum: Unremarkable Bones: Unremarkable CT/Abdomen/Pelvis WITH Contrast IMPRESSION: Stable 1.7 cm cyst in the anterior medial aspect of the right lobe of the liver superiorly. Reading Location: [facility] CC: FREDDIE FIGUEROA; Dr. Cam Tan MD ~ Club Car Attendant: Signed [facility] 10-28-2023 Discharge summary Note Date/Time October 28, 2023 8:05pm [facility] Medical Records Department [address] [place] [address] Emergency Department Summary 10/28/23 MR#: [id number] Acct: [id number] Name: JUDITH BEDOLLA Rep #:[id number] : 2005 18 From: Greg Guardado MD PCP: Dr. Cam Tan MD Status:REG ER Location: ED HPI <EMILY Blood - Last Filed: 10/28/23 21:20> History of Present Illness Chief Complaint: Abd Pain Narrative Narrative: Patient is an 18-year-old female with no significant medical history who is currently on her menstrual cycle which is normal, she is not sexually active whopresents to the emergency department for ongoing pain to her abdomen, nausea. The last year, patient's been having multiple painful episodes throughout the month however is worse during her menstrual cycle. Patient has seen her PCP as well as her dielectric tester, as well as a graphic design assistant doctor. Patient today was bent over in pain and the parents brought her here to the emerged department. She denies any fever or chills. Her last bowel movement was 3 days ago however she is irregular. She denies any blood in her vomit or stool. PFSH <EMILY Blood - Last Filed: 10/28/23 21:20> PFS Medical History Migraines Non-smoker Home Medications dicyclomine 20 mg tablet 20 mg PO TID #30 tabs 10/28/23 [Rx Last Taken Unknown] polyethylene glycol 3350 17 gram/dose oral powder (Miralax) 17 g PO BID #119 grams 10/28/23 [Rx Last Taken Unknown] Allergy/AdvReac Type Severity Reaction Status Date / Time No Known Allergies Allergy Verified 10/28/23 19:38 Social History Smoking Status: Never smoker alcohol intake: never ROS <EMILY Blood - Last Filed: 10/28/23 21:20> ROS ED ROS Narrative Constitutional: Negative for fever, chills, weight loss, weakness Eyes: Negative for vision loss, vision change, double vision ENT: Negative for any sore throat, ear pain, congestion Cardiovascular: Negative for any chest pain, tightness, palpitations Respiratory: Negative for any cough, sputum production, hemoptysis, dyspnea, dyspnea on exertion, orthopnea Gastrointestinal: Negative for any vomiting, diarrhea, constipation, blood in stool, blood in vomit. Positive abdominal pain, nausea : Negative for any urinary frequency, dysuria, retention, blood in urine Muscle skeletal: Negative for any neck pain, back pain Neurological: Negative for any headache, syncope, dizziness Skin: Negative for any rashes, itching, abrasions, lacerations Psychiatric: Negative for any depression, anxiety, stress, suicidal ideation, homicidal ideation Hematologic: Negative for any excessive bruising, easy bleeding EXAM <EMILY Blood - Last Filed: 10/28/23 21:20> Physical Exam Narrative Exam Narrative: Vital signs reviewed. Patient appears to be slightly anxious, tearful. HEET: Head normocephalic atraumatic, TMs clear bilaterally. Posterior pharynx is clear, moist mucous membranes. Nares clear bilaterally. Neck: Supple with no lymphadenopathy or tenderness. No signs of meningismus. Cardiac: Regular rate and rhythm no murmurs gallops or rubs, equal peripheral pulses bilaterally. Respiratory: Lungs clear to auscultation bilaterally. No chest tenderness. Abdomen: Soft, patient has tenderness to the suprapubic area as well as the right upper quadrant. There is no specific location where it is worse. Active bowel sounds in all quadrants, nondistended. No abdominal bruit or pulsatile masses. No hepatosplenomegaly Extremities: No peripheral edema, no signs of gross trauma or deformity. Activefull range of motion of all extremities. Neuro: Cranial nerves II through XII intact, no focal neurological deficits. Skin: Clean dry and intact with no rash, purpura, petechiae, vesicles or pustules. Backs/flank: No CVA tenderness, no midline spinal tenderness, no deformity. Psych: Normal mood and affect. No SI, HI or acute psychosis. Const Vital Signs: 10/28/23 19:38 10/28/23 21:24 Temperature 98.3 F 98.1 F Temperature Source Temporal Pulse Rate 97 77 Respiratory Rate 18 18 Blood Pressure 128/63 L 113/43 L Blood Pressure Mean 84 66 Pulse Ox 100 98 Positive well nourished and well developed General Appearance ED: well developed <Dr. Greg Guardado MD - Last Filed: 10/28/23 21:33> Physical Exam Const Vital Signs: 10/28/23 19:38 10/28/23 21:24 Temperature 98.3 F 98.1 F Temperature Source Temporal Pulse Rate 97 77 Respiratory Rate 18 18 Blood Pressure 128/63 L 113/43 L Blood Pressure Mean 84 66 Pulse Ox 100 98 MDM <EMILY Blood - Last Filed: 10/28/23 21:20> MDM Lab Data Labs: Laboratory Results - last 24 hr 10/28/23 20:10 WBC 8.7 RBC 4.37 Hgb 13.5 Hct 40.6 MCV 92.9 MCH 30.9 MCHC 33.3 RDW Std Deviation 40.8 RDW Coeff of Veena 11.9 Plt Count 176 MPV 11.4 Immature Gran % (Auto) 0.100 Neut % (Auto) 67.4 H Lymph % (Auto) 20.2 L [place] % (Auto) 10.4 H Eos % (Auto) 1.4 Baso % (Auto) 0.5 Absolute Neuts (auto) 5.9 Absolute Lymphs (auto) 1.75 Nucleated RBC % 0 Sodium 140 Potassium 3.6 Chloride 108 H Carbon Dioxide 27.0 Anion Gap 5 BUN 13 Creatinine 0.92 Estim Creat Clear Calc 96.44 Est GFR (MDRD) Af Amer 102 Est GFR (MDRD) Non-Af 84 BUN/Creatinine Ratio 14.2 Glucose 103 Calcium 8.8 Total Bilirubin 0.90 AST 65 H ALT 36 Alkaline Phosphatase 60 Total Protein 7.5 Albumin 4.2 Globulin 3.3 Albumin/Globulin Ratio 1.3 Lipase 25 Serum , Qual NEGATIVE Urine Color Yellow Urine Clarity Clear Urine pH 6.5 Ur Specific Hemet 1.015 Urine Protein Negative Urine Glucose (UA) Normal Urine Ketones Negative Urine Occult Blood 150 H Urine Nitrite Negative Urine Bilirubin Negative Urine Urobilinogen Normal Ur Leukocyte Esterase Negative Urine RBC 0-5 SEEN Urine WBC 0 SEEN Ur Squamous Epith Cells 0 SEEN Urine Bacteria 0 SEEN Urine Mucus 0 SEEN Radiography Diagnostic Testing: Clinical Impression(s) from Imaging Studies Abdomen/Pelvis CT 10/28/23 19:57 IMPRESSION: 1. Umbilical hernia containing fat. 2. Appendix appears normal. Electronically Signed: Anatoly Ramirez MD at 20:58 EDT , Treatment and Re-Evaluation :: Patient appears to be in no obvious respiratory distress, vital signs are stablepresenting to the emergency department with complaints of ongoing abdominal painfor 1 year. Patient will receive a full abdominal workup. Differential diagnosis includes however is not limited to: Acute appendicitis, bowel obstruction, IBS, Crohn's, diverticulitis. Patient received IV fluids, Zofran as well as Toradol. Patient be reevaluated Patient on reevaluation did feel slight improvement with medications. Patient CBC was unremarkable, patient's chemistries were unremarkable. Patient is not . Patient's urinalysis was negative for any infection. Patient CT scanof the abdomen pelvis with IV contrast shows umbilical hernia, appendix is normal, there is no acute abnormality. I spoke with the patient, the patient's mom and dad, I spoke with him that we did not find any emergency diagnoses however the patient will continue to get the workup. I will provide the patient with Dr. Pemberton's information, patient was given Bentyl, patient was given MiraLAX. Instructed to maintain hydration, they were given strict return precaution. All questions were answered, patient stable for discharge <Dr. Greg Guardado MD - Last Filed: 10/28/23 21:33> [facility] Narrative Medical decision making narrative: I have personally performed a face to face assessment of the patient and have reviewed the [facility] Note. I performed a substantive portion of the visit including all aspects of the following. My toth findings include: History is 18-year-old female history of abdominal pain for years. She has had prior workup without a specific diagnosis. She is a history of constipation. She has had abdominal discomfort last several days worse tonight. Increased gas. She has had no prior abdominal surgeries. No fever. No dysuria. Often these episodes are worse around her menstrual cycle. Exam is [well-appearing 18-year-old female. Vital signs stable afebrile. Companied by her parents. H EENT exam unremarkable. Neck nontender. Lungs clear. Heart regular rhythm. Abdomen soft nondistended normal bowel sounds no peritoneal signs. No localizing tenderness in either the right upper or right lower quadrants. No hernia or mass. No obstruction. Nor any distention. Moving all 4 extremities. Nontender no edema. Back nontender. Neurologically she is awake and alert no focal motor deficits.] Medical Decision Making [young female recurrent abdominal pain. CAT scan and labs are pending.] Other additions or changes: [None] Lab Data Attestation: I reviewed the patient's lab results. Lab results narrative: CBC normal. White count 8. H&H 13 and 40. Platelets 176. Electrolytes show gap 5. BUN 13 creatinine 0.9. Liver enzymes normal. Lipase normal at 25. Serum test negative. UA negative. CAT scan abdomen pelvis unremarkable. Labs: Laboratory Results - last 24 hr 10/28/23 20:10 WBC 8.7 RBC 4.37 Hgb 13.5 Hct 40.6 MCV 92.9 MCH 30.9 MCHC 33.3 RDW Std Deviation 40.8 RDW Coeff of Veena 11.9 Plt Count 176 MPV 11.4 Immature Gran % (Auto) 0.100 Neut % (Auto) 67.4 H Lymph % (Auto) 20.2 L [place] % (Auto) 10.4 H Eos % (Auto) 1.4 Baso % (Auto) 0.5 Absolute Neuts (auto) 5.9 Absolute Lymphs (auto) 1.75 Nucleated RBC % 0 Sodium 140 Potassium 3.6 Chloride 108 H Carbon Dioxide 27.0 Anion Gap 5 BUN 13 Creatinine 0.92 Estim Creat Clear Calc 96.44 Est GFR (MDRD) Af Amer 102 Est GFR (MDRD) Non-Af 84 BUN/Creatinine Ratio 14.2 Glucose 103 Calcium 8.8 Total Bilirubin 0.90 AST 65 H ALT 36 Alkaline Phosphatase 60 Total Protein 7.5 Albumin 4.2 Globulin 3.3 Albumin/Globulin Ratio 1.3 Lipase 25 Serum , Qual NEGATIVE Urine Color Yellow Urine Clarity Clear Urine pH 6.5 Ur Specific Hemet 1.015 Urine Protein Negative Urine Glucose (UA) Normal Urine Ketones Negative Urine Occult Blood 150 H Urine Nitrite Negative Urine Bilirubin Negative Urine Urobilinogen Normal Ur Leukocyte Esterase Negative Urine RBC 0-5 SEEN Urine WBC 0 SEEN Ur Squamous Epith Cells 0 SEEN Urine Bacteria 0 SEEN Urine Mucus 0 SEEN Radiography Diagnostic Testing: Clinical Impression(s) from Imaging Studies Abdomen/Pelvis CT 10/28/23 19:57 IMPRESSION: 1. Umbilical hernia containing fat. 2. Appendix appears normal. Electronically Signed: Anatoly Ramirez MD at 20:58 EDT Reading Location ID and State: [facility] / [place] , Service support , Discharge Plan Triage Chief Complaint: Abd Pain ED Midlevel Provider: Jimmy Hale ED Provider: Greg Guardado Dx/Rx/DC Orders Clinical Impression: Abdominal pain, Constipation Instructions: Abdominal Pain, ED Constipation (Adult) Prescriptions: New polyethylene glycol 3350 [Miralax] 17 gram/dose powder 17 g PO BID Qty: 119 0RF dicyclomine 20 mg tablet 20 mg PO TID Qty: 30 0RF Primary Care Provider: Cam Tan Referrals: Cam Tan MD [Primary Care Provider] - Roni Pemberton DO [Med Staff - Active Staff] - Activity Restrictions/Additional Instructions: We did not find anything on your examination today. You had normal blood work, your CT scan was normal. You did look to have some constipation. That is why you are given MiraLAX twice a day every day, this will help ease things along and is not very aggressive. The Bentyl is for the significant cramping more in the upper abdomen. Follow-up with Dr. 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 Return forworsening symptoms. Disposition Disposition: Home, Self Care What to do if you have Problems For any increased pain, shortness of breath, bleeding, nausea or vomiting, chestpain, or any unexpected problems, contact your Primary Care Provider. Call [facility] ([phone]) or report to the closest Emergency Room. Call 911 if necessary. 10/28/232132 <Electronically signed by Greg Guardado MD> Cosigner Signature (if applicable): 10/28/232119 <Electronically signed by Jimmy DIAZ> CC: Dr. Cam Tan MD ~ Signed [facility] Work Phone: 1([phone]) 939-397411-30-2023 Miscellaneous Notes* Telephone Encounter - Liana Helm LPN - 07/05/2023 4:50 PM EST Patient notified * Telephone Encounter - Felicia Jimenes RN - 07/05/2023 4:19 PM EST 2nd message left for patient to call the office. Felicia Jimenes RN * Telephone Encounter - Leslie Galeano RN - 07/02/2023 9:03 AM EST Left message for patient to call office. LESLIE GALEANO RN * Telephone Encounter - Deborah Fletcher APRN.CNP - 07/02/2023 7:34 AM EST Please let the patient know that all her lab values are within normal range. If she would like to start a control to please contact the office when she is ready. Deborah Fletcher APRN.CNP [facility] History of Present illness Narrative* Deobrah Fletcher APRN.CNP - 06/29/2023 8:26 AM EST CONTRACEPTION Judith Bedolla is a 18 year old who presents today for contraception. Patient's last menstrual period was 06/26/2023.. HPI: Dysmenorrhea Yes Heavy menses Yes Irregular menses No Lasting 6-7 days cramping with worst the day before and the 1st 3 days SUBJECTIVE Sexually active: No Smoking No Last PAP Method of control: none Methods tried previously: none Patient currently interested in: none Interested in in the next 3 years? No Relevant Past Medical History: No relevant past medical history OB History T0 L0 SAB0 IAB0 Ectopic0 Multiple0 Live Births0 PAST MEDICAL HISTORY Diagnosis Date Abnormal findings on screening slightly elevated tyrosine Migraines NEGATIVE MEDICAL HISTORY 06/23/10 normal color vision PAST SURGICAL HISTORY Procedure Laterality Date LIP SURGERY PROC UNLISTED 05/05/2008 Hemangioma FAMILY HISTORY Problem Relation Age of Onset Cancer Father Breast cancer Hypertension Father MGGM Lipids Father father, PGM other (migraine) Father pat uncle SOCIAL HISTORY Social History Tobacco Use Smoking status: Never Passive exposure: Never Smokeless tobacco: Never Vaping Use Vaping Use: Never used Substance Use Topics Alcohol use: Never Drug use: Never PAST SURGICAL HISTORY Procedure Laterality Date LIP SURGERY PROC UNLISTED 05/05/2008 Hemangioma Current Outpatient Medications Medication Sig rizatriptan (MAXALT) 10 mg tablet Take 1 tablet by mouth as needed. May repeat in 2 hours if needed. Please refer to the migraine action plan (Patient not taking: Reported on 02/04/2021 ) acetaminophen (TYLENOL) 325 mg tablet Take 2 tablets by mouth every 6 hours as needed (per the headache action plan). No current facility-administered medications for this visit. Allergies As of Date: 06/29/2023 (No Known Allergies) Fully Assessed 06/29/2023 OBJECTIVE: General Appearance: Well appearing, alert, in no acute distress, well-hydrated, well nourished. Skin: Color normal Lungs: normal inspiratory effort ASSESSMENT/PLAN: 1. Menorrhagia with regular cycle - ICD9: 626.2, ICD10: N92.0 (primary diagnosis) - TSH BLD - VITAMIN B12 BLOOD - VITAMIN D 25 HYDROXY - CBC + DIFF - IRON + TIBC 2. Dysmenorrhea - ICD9: 625.3, ICD10: N94.6 - VITAMIN B12 BLOOD - VITAMIN D 25 HYDROXY - CBC + DIFF - IRON + TIBC Discussed doing 6 to 800 mg of ibuprofen along with extra strength Tylenol at the start of the menses to help control dysmenorrhea. Patient will consider control options for menses control. Deborah Fletcher APRN.MACHINE TRIMMER Medical Decision Making: Problems: Low: Acute, uncomplicated illness or injury Data: Unique test(s) ordered: 3+ Risk: Low: Low risk from testing/treatment Medical Decision Making Level: 3 - Low [facility] Instructions* Patient Instructions* Cam Tan MD - 02/08/2023 12:21 PM EDT Images from the original note were not included. 5 to Go!TM Healthy Kids Inside & Out 5 Eat FIVE fruits and veggies a day 4 Give and get FOUR compliments a day 3 Consume THREE calcium products a day 2 Limit media time to TWO hours a day 1 Get at least ONE hour of exercise a day 0 Consume ZERO sugar-sweetened drinks Go! Be healthy, inside and out! [email or web address] Adolescent to Adult Transition Program [facility] cares about helping you and each of our adolescents and young adults make a smoothtransition to adult care. If your current doctor is a service porter, we will work with you to decide the correct age for moving your care to a doctor or other provider who takes care of adults. We suggest that this move take place before age 22. Our office policy is to prepare you to move to a doctor or other provider who takes care of adults. This includes helping you find a doctor or other provider, sending medical records, and talking about any special needs with the new doctor or other provider. If your current doctor is in family medicine, [facility] will prepare you and your family forthe transition to being an adult patient. You will be able to make your own healthcare decisions and will have an adult care team that meets your personal healthcare needs. At age 18, by law, we need your agreement to discuss personal health information with your family. We understand and respect that you may want to include your family in healthcare choices and will partner with you on how and when to include your family in decisions. We will make sure you know what changes to expect. We will also strive to make sure that all care team providers know your needs. We will help you find community resources and specialty care, if needed. Having your information before you come for the first time helps us be sure we do not miss any details. If joining our practice from outside [facility], we will help you request your medical record from past doctor(s) before your first visit. We will make every effort to work with your past providers to ensure a smooth transition and experience. We are always here for you. If you have any questions or concerns, please contact your primary careteam or e-mail [email or web address] Mail'Inside is the federally funded national resource center on health care transition (HCT). Its aim is to improve transition from pediatric to adult health care through the use of evidence-driven strategies for health healthcare facility administrator, youth, young adults, and their families. www.gottransition.org https://Daz 3dition.org/resource/?ucp-dlhwom-zgrjetd Healthy Children Ages & Stages Texting Program HealthyJoggleBug.org is an AAP ([place] [employer]s) parenting website. It is a great resource for information. They have a new Ages & Stages texting program available to parents. Fill out the information in the link below to start getting helpful tips and resources from AAP experts right to your phone. Be sure to include your child's age so they can send you age appropriate information. https://www.hike.org/Dutch/tips-tools/LmckwraAvfbkbns-Raefcvi-Emujn am/Pages/default.aspx documented in this encounterOhio [facility] Hospital07-06-[facility]23 History of Present illness Narrative* Cam Tan MD - 02/08/2023 11:23 AM EDT WELL VISIT PEDIATRIC 14-17 YRS OLD Judith is a 17 year old who presents today for well exam accompanied by her mother. SUBJECTIVE CONCERNS: no concerns HISTORY ACTIVE PROBLEM LIST Intractable Migraine Without Aura and Without Status Migrainosus - 10/17/2017 HEMANGIOMA UNSPECIFIED SITE - 2005 Comment: upper lip, sees peds derm. PAST MEDICAL HISTORY Diagnosis Date Abnormal findings on screening slightly elevated tyrosine Migraines NEGATIVE MEDICAL HISTORY 06/23/10 normal color vision PAST SURGICAL HISTORY Procedure Laterality Date LIP SURGERY PROC UNLISTED 05/05/2008 Hemangioma ALLERGIES No Known Allergies Medications: rizatriptan (MAXALT) 10 mg tablet Take 1 tablet by mouth as needed. May repeat in 2 hours if needed. Please refer to the migraine action plan (Patient not taking: Reported on 02/04/2021 ) acetaminophen (TYLENOL) 325 mg tablet Take 2 tablets by mouth every 6 hours as needed (per the headache action plan). FAMILY HISTORY Problem Relation Age of Onset Cancer Father Breast cancer Hypertension Father MGGM Lipids Father father, PGM other (migraine) Father pat uncle Social History Social History Narrative Not on file Smoking Exposure: Does your child spend a significant amount of time in the care of anyone who smokes? No School: Presently in 12th grade. Any concerns regarding peer interactions? No Safety: Pediatric SDOH - Response to gun questions 02/07/2023 Are there any guns kept in or around your home or where your child spends time? Decline Reviewed seat belts and bike helmets Diet: -Eats 3 meals a day, 2-3 snacks -Typically drinks water and iced coffee sometimes -Eats fruits and vegetables Elimination: no concerns, normal size and consistency Dental: dental care current Sleep: -no sleep concerns Vision: No vision concerns, wears glasses/contacts, see' an eye doctor Hearing: No hearing concerns Growth: No growth concerns Gynecological history: LMP: 01/09/23 Cycles are regular and last 6 days. Dysmenorrhea: moderate Heavy periods: yes Substance use: none Sexual History: Attraction: male Sexually Active: No Body image: satisfactory Screening tools reviewed and discussed with patient/[id number]-P. Please see Patient Entered Data. OBJECTIVE Physical Exam: BP 102/66 Pulse 60 Temp 36.8 C (98.3 F) (Temporal) Resp 16 Ht 168.9 cm (5' 6.5) Wt 66.6 kg (146 lb 12.8 oz) LMP 01/09/2023 BMI 23.34 kg/m Blood pressure percentiles are 17 % systolic and 53 % diastolic based on the 2017 AAP Clinical Practice Guideline. This reading is in the normal blood pressure range. Patient's last menstrual period was 01/09/2023. Body mass index is 23.34 kg/m . Last BMI: Wt: 63 kg (138 lb 12.8 oz) (77 %, Z= 0.75)* BMI: 21.91 kg/(m^2) Last 4 Encounter Wt Readings: Date: Wt: 02/07/2022 63 kg (138 lb 12.8 oz) (77 %, Z= 0.75)* 02/04/2021 61.3 kg (135 lb 3.2 oz) (77 %, Z= 0.73)* 02/04/2020 65.5 kg (144 lb 8 oz) (88 %, Z= 1.16)* 09/05/2019 67.1 kg (148 lb) (91 %, Z= 1.33)* Last 4 Encounter Ht Readings: Date: Ht: 02/07/2022 169.5 cm (5' 6.73) (85 %, Z= 1.03)* 02/04/2021 168.8 cm (5' 6.46) (84 %, Z= 0.99)* 02/04/2020 167 cm (5' 5.75) (80 %, Z= 0.84)* 01/20/2019 167 cm (5' 5.75) (87 %, Z= 1.12)* General: alert and active in no apparent distress Head: Normocephalic, atraumatic Eyes: Conjunctiva are clear without injection or discharge. Steady central gaze without nystagmus. Ears: External ears normal. Canals clear. Tympanic membranes are intact bilaterally without evidence of fluid in the middle ear space Nose/Sinuses: Nares normal. Septum midline. Mucosa normal. No drainage or sinus tenderness. Oropharynx: Tonsils are 1+. Uvula is midline and the oropharynx is symmetrical Neck: No masses and the suprasternal notch, no supraclavicular adenopathy, supple, no adenopathy Thyroid: no masses or nodules present Heart: Regular Rate and Rhythm without murmurs or clicks, femoral and radial pulses are normal.PMI normal Lungs: clear to auscultation. No wheezes or rales.Chest AP diameter normal. Abdomen: Abdomen is soft, nontender, without organomegaly or masses. Musculoskeletal: Extremities with FROM and no problems identified. Bilateral shoulder, elbow and wrist exams are within normal limits. Bilateral hip, knee and ankle examinations are within normal limits. Neurological: Muscle tone normal, Awake, alert and oriented x 3, Cranial nerves II-XII grossly intact, Normal age appropriate gait, muscle tone normal, muscle strength 5/5 in the upper and lower extremities bilaterally and symmetrically, rapid alternating movements smooth in the hands without evidence of dysdiadochokinesia Skin: Normal skin exam without concerning lesions ASSESSMENT: 17 year old Well exam PLAN: 1) Plan per orders. 2) Hearing and Vision if done at the visit was discussed and reviewed with the patient and family. 3) Questionnaires, if administered at the office today, were reviewed with the patient and family. 4) Growth curves including BMI were reviewed with the patient. Education regarding BMI, its meaningutility and limitations were discussed in the office today. If the BMI was elevated, we discussed interventions. 5) Counseling: See patient instruction section 6) Follow up every 1 year for well exam and PRN. Based on PHQ-A Score: 0 (recommended cut off score is 11) and interview, presentation is not consistent with depression - Adolescent anticipatory guidance discussed. - Discussed diet and safety. - Dental care discussed. - Bright Futures handout given (See Patient Instructions). - No immunizations were recommended to be given at this visit. - Follow up in one year for routine physical. Cam Tan MD documented in this encounterOhio [facility]07-05-[facility]22 Instructions* Patient Instructions* Cam Tna MD - 02/07/2022 10:08 AM EDT Images from the original note were not included. 5 to Go!TM Healthy Kids Inside & Out 5 Eat FIVE fruits and veggies a day 4 Give and get FOUR compliments a day 3 Consume THREE calcium products a day 2 Limit media time to TWO hours a day 1 Get at least ONE hour of exercise a day 0 Consume ZERO sugar-sweetened drinks Go! Be healthy, inside and out! www.[email or web address]/5toGo Adolescent to Adult Transition Program [facility] cares about helping you and each of our adolescents and young adults make a smoothtransition to adult care. If your current doctor is a service porter, we will work with you to decide the correct age for moving your care to a doctor or other provider who takes care of adults. We suggest that this move take place before age 22. Our office policy is to prepare you to move to a doctor or other provider who takes care of adults. This includes helping you find a doctor or other provider, sending medical records, and talking about any special needs with the new doctor or other provider. If your current doctor is in family medicine, [facility] will prepare you and your family forthe transition to being an adult patient. You will be able to make your own healthcare decisions and will have an adult care team that meets your personal healthcare needs. At age 18, by law, we need your agreement to discuss personal health information with your family. We understand and respect that you may want to include your family in healthcare choices and will partner with you on how and when to include your family in decisions. We will make sure you know what changes to expect. We will also strive to make sure that all care team providers know your needs. We will help you find community resources and specialty care, if needed. Having your information before you come for the first time helps us be sure we do not miss any details. If joining our practice from outside [facility], we will help you request your medical record from past doctor(s) before your first visit. We will make every effort to work with your past providers to ensure a smooth transition and experience. We are always here for you. If you have any questions or concerns, please contact your primary careteam or e-mail [email or web address] Got Transition is the federally funded national resource center on health care transition (HCT). Its aim is to improve transition from pediatric to adult health care through the use of evidence-driven strategies for health healthcare facility administrator, youth, young adults, and their families. www.gottransition.org https://gottransition.org/resource/?nwp-aqnsvv-soydqkq Healthy Children Ages & Stages Texting Program HealthyJoggleBug.org is an AAP ([place] Academy of Pediatrics) parenting website. It is a great resource for information. They have a new Ages & Stages texting program available to parents. Fill out the information in the link below to start getting helpful tips and resources from AAP experts right to your phone. Be sure to include your child's age so they can send you age appropriate information. https://www.healthyVPHealth.org/Dutch/tips-tools/WtcdihyLpgxyxqa-Nekwexj-Abavx am/Pages/default.aspx documented in this encounterOhio Valley Hospital07-05-2022 History of Present illness Narrative* Cam Tan MD - 02/07/2022 9:54 AM EDT WELL VISIT PEDIATRIC FEMALE 14-17 YRS OLD SERVICE DATE: 02/07/2022 Judith is a 16 year old female who presents today for well exam accompanied by her mother. SUBJECTIVE CONCERNS: Discuss bowel movements - irregular - has used OTC miralax and suppositories Hears a popping/clicking in ankles - mainly when walking and going up stairs Moles under left arm HISTORY ACTIVE PROBLEM LIST Intractable Migraine Without Aura and Without Status Migrainosus - 10/17/2017 HEMANGIOMA UNSPECIFIED SITE - 2005 Comment: upper lip, sees peds derm. PAST MEDICAL HISTORY Diagnosis Date Abnormal findings on screening slightly elevated tyrosine Migraines NEGATIVE MEDICAL HISTORY 06/23/10 normal color vision PAST SURGICAL HISTORY Procedure Laterality Date LIP SURGERY PROC UNLISTED 05/05/2008 Hemangioma ALLERGIES No Known Allergies Medications: rizatriptan (MAXALT) 10 mg tablet Take 1 tablet by mouth as needed. May repeat in 2 hours if needed. Please refer to the migraine action plan acetaminophen (TYLENOL) 325 mg tablet Take 2 tablets by mouth every 6 hours as needed (per the headache action plan). FAMILY HISTORY Problem Relation Age of Onset Cancer Father Breast cancer Hypertension Father MGGM Lipids Father father, PGM other (migraine) Father pat uncle Social History Social History Narrative Not on file Smoking Exposure: Does your child spend a significant amount of time in the care of anyone who smokes? No School: Grade: 11th; grades A. Physical Activity: more than 1 hour of physical activity per day Screen Time totaling less than 2 hours of screen time per day. Safety: Reviewed seat belts, bike helmets, internet, sunscreen and driving Diet: -Eats 3 meals per day and 2 snacks per day -Typical beverages include water -Fruits and vegetables are eaten with nearly every meal Elimination: Concerns with Constipation Dental: dental care current Sleep: -no sleep concerns Gynecological history: LMP: 01/24/22 Cycles are regular and last 6 days. Dysmenorrhea: moderate Heavy periods: no Substance use: none Sexual History: Attraction: male Sexually Active: No Body image: satisfactory Screening tools reviewed and discussed with patient/[id number]-[id number]. Please see Patient Entered Data. REVIEW OF SYSTEMS GENERAL: No fevers EYES: No vision concerns, see's an eye doctor, wears glasses/contacts ENT: No hearing concerns RESPIRATORY: Negative for cough, wheezing or respiratory distress CARDIOVASCULAR: Negative for chest pain, syncope, lightheadness or heart racing SKIN: Negative for lesions, rash, and itching ENDOCRINE: No growth concerns OBJECTIVE Physical Exam: BP 98/64 Pulse 60 Temp 37 C (98.6 F) (Temporal) Resp 16 Ht 169.5 cm (5' 6.73) Wt 63 kg (138 lb 12.8 oz) LMP 01/24/2022 BMI 21.91 kg/m Blood pressure percentiles are 11 % systolic and 40 % diastolic based on the 2017 AAP Clinical Practice Guideline. This reading is in the normal blood pressure range. 63 %ile (Z= 0.34) based on [facility] (Girls, 2-20 Years) BMI-for-age based on BMI available as of 02/07/2022. Patient's last menstrual period was 01/24/2022. Last BMI: Wt: 61.3 kg (135 lb 3.2 oz) (77 %, Z= 0.73)* BMI: 21.52 kg/(m^2) Last 4 Encounter Wt Readings: Date: Wt: 02/04/2021 61.3 kg (135 lb 3.2 oz) (77 %, Z= 0.73)* 02/04/2020 65.5 kg (144 lb 8 oz) (88 %, Z= 1.16)* 09/05/2019 67.1 kg (148 lb) (91 %, Z= 1.33)* 06/23/2019 65.3 kg (144 lb) (90 %, Z= 1.26)* Last 4 Encounter Ht Readings: Date: Ht: 02/04/2021 168.8 cm (5' 6.46) (84 %, Z= 0.99)* 02/04/2020 167 cm (5' 5.75) (80 %, Z= 0.84)* 01/20/2019 167 cm (5' 5.75) (87 %, Z= 1.12)* 11/04/2018 165 cm (5' 4.96) (82 %, Z= 0.91)* General: alert and active in no apparent distress Head: Normocephalic, atraumatic Eyes: PERRLA, EOM's intact Ears: External ears normal. Canals clear. Tympanic membranes are intact bilaterally without evidence of fluid in the middle ear space Nose/Sinuses: Nares normal. Septum midline. Mucosa normal. No drainage or sinus tenderness. Oropharynx: Tonsils are 1+. Uvula is midline and the oropharynx is symmetrical Neck: No masses and the suprasternal notch, no supraclavicular adenopathy, supple, no adenopathy Thyroid: no masses or nodules present Heart: Regular Rate and Rhythm without murmurs or clicks, femoral and radial pulses are normal.PMI normal Lungs: clear to auscultation. No wheezes or rales.Chest AP diameter normal. Abdomen: Abdomen is soft, nontender, without organomegaly or masses. Musculoskeletal: Extremities with FROM and no problems identified. Negative Blakely forward bend test. Bilateral shoulder, elbow and wrist exams are within normal limits. Bilateral hip, knee and ankle examinations are within normal limits. Neurological: Muscle tone normal, Awake, alert and oriented x 3, Cranial nerves II-XII grossly intact, Reflexes symmetrical, Normal age appropriate gait, muscle tone normal, muscle strength 5/5 in the upper and lower extremities bilaterally and symmetrically, rapid alternating movements smooth in the hands without dysdiadochokinesia Skin: 4 mm raised ontiveros domed fleshy lesion present in the left axilla ASSESSMENT: 16 year old Well exam Melanocytic nevus: Discussed the benign nature. If the patient finds this to be irritating secondary to shaving can be referred to dermatology or general surgery for removal Constipation: Handout provided. 3-day cleanout followed by 2 capfuls of MiraLAX once daily. Discussed the goal of 1-2 [place] stool scale #5 stools daily. Return to clinic in 8 weeks for reevaluation PLAN: 1) Plan per orders. Office Visit on 02/07/22 MENINGOCOCCAL VACCINE, QUADRIVALENT (MENQUADFI) 2) Hearing and Vision if done at the visit was discussed and reviewed with the patient and family. 3) Questionnaires, if administered at the office today, were reviewed with the patient and family. 4) Growth curves including BMI were reviewed with the patient. Education regarding BMI, its meaningutility and limitations were discussed in the office today. If the BMI was elevated, we discussed interventions. 5) Counseling: See patient instruction section 6) Follow up every 1 year for well exam and PRN. 63 %ile (Z= 0.34) based on CDC (Girls, 2-20 Years) BMI-for-age based on BMI available as of 02/07/2022. Judith is normal weight (BMI 5th% - 84th%): -To maintain a healthy weight, discussed limiting screen time to less than 2 hours per day, physical activity for at least one hour per day, 5 servings of fruits and vegetables per day, 3 meals per day, family meals ar home and no sugar containing beverages Based on PHQ-A Score: 0 (recommended cut off score is 11) and interview, presentation is not consistent with depression - Adolescent anticipatory guidance discussed. - Discussed diet and safety. - Dental care discussed. - New Relics handout given (See Patient Instructions). - Parent/guardian was counseled [id number] by myself (the billing provider) for the following immunizations and vaccine components, including side effects: MenQuadFi. Parent/guardian consents for immunization and understands risks and benefits. A VIS sheet on each immunization was given to the parent/guardian. Parent/guardian declined immunization for COVID-19 and were counseled regarding risk. - Follow up in one year for routine physical. SIGNATURE: Cam Tan MD PATIENT NAME: Judith Bedolla DATE: February 07, 2022 TIME: 9:54 AM [facility]* Diagnosis Encounter for routine child health examination w/o abnormal findings- Primary Routine infant or child health check Encounter for immunization Need for other specified prophylactic vaccination against single bacterial disease Screening for depression documented in this encounter [facility] note* Diagnosis Encounter for routine child health examination w/o abnormal findings- Primary Routine infant or child health check Screening for depression documented in this encounter [facility] note* Diagnosis Menorrhagia with regular cycle- Primary Excessive or frequent menstruation Dysmenorrhea documented in this encounter [facility] noteNo assessment information availableWMount Carmel [facility] System Work Phone: Evaluation note* Diagnosis Abdominal bloating- Primary Flatulence, eructation, and gas pain Chronic abdominal pain Abdominal pain, unspecified site Nausea Nausea alone documented in this encounter [facility] note* Diagnosis Abdominal bloating Flatulence, eructation, and gas pain [facility] Diagnosis Biliary dyskinesia- Primary Other specified disorder of gallbladder Biliary sludge determined by ultrasound Chronic cholecystitis Biliary dyskinesia Other specified disorder of gallbladder Chronic cholecystitis Biliary sludge determined by ultrasound Biliary dyskinesia Other specified disorder of gallbladder Chronic cholecystitis Biliary sludge determined by ultrasound [facility] Diagnosis Biliary dyskinesia- Primary Other specified disorder of gallbladder Biliary dyskinesia Other specified disorder of gallbladder Chronic cholecystitis Biliary sludge determined by ultrasound [facility]* Diagnosis Postoperative examination- Primary Follow-up examination, following unspecified surgery S/P laparoscopic cholecystectomy Other postprocedural status [facility]* Diagnosis Dysuria- Primary Abdominal bloating Flatulence, eructation, and gas pain documented in this encounter [facility] Discharge instructions Additional Instructions We did not find anything on your examination today. You had normal blood work, your CT scan was normal. You did look to have some constipation. That is why you are given MiraLAX twice a day every day, this will help ease things along and is not very aggressive. The Bentyl is for the significant cramping more in the upper abdomen. Follow-up with Dr. 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 Return for worsening symptoms.[facility] Work Phone: Reason for referral (narrative)No reason for referral information availableWMount Carmel [facility] System Work Phone: Reason for visit Narrative* Diagnostic Procedure Only (Routine) - Closed Specialty Diagnoses / Procedures Referred By Agusto kan Referred To Contact [facility] Diagnoses Abdominal bloating Procedures PELVIC US WHI US PELVIC NONOBSTETRIC REAL-TIME IMAGE COMPLETE Sowmya Maciel MD [address] [place] [address] Phone: tel: fax: [facility] [place] [address] Referral ID Status Reason Start Date Expiration Date V isits Requested Visits Authorized [id number] Closed Auto-Generate d Referral 12/02/2024 12/02/2025 1 1 [facility] for visit Narrative* Auth/Cert (Routine) Specialty Diagnoses / Procedures Referred By Agusto kan Referred To Contact Diagnoses Biliary dyskinesia Chronic cholecystitis Biliary sludge determined by ultrasound Biliary dyskinesia [K82.8] Chronic cholecystitis [K81.1] Biliary sludge determined by ultrasound [K83.8] Procedures MS LAPAROSCOPY SURG CHOLECYSTECTOMY LAPAROSCOPIC CHOLECYSTECTOMY, POSSIBLE OPEN Tarun Farris MD [address] [place] [address] Phone: tel: fax: Referral ID Status Reason Start Date Expiration Date Visits Re quested Visits Authorized [id number] 01/05/2025 1 1 [facility] Chief Complaint and Reason for Visit Chief Complaint abd pain Chief Complaint Admit Date CHRONIC ABD PAIN W/WT LOSS November 06 9:50am Chief Complaint Admit Date CHRONIC ABD PAIN W/WT LOSS November 06 9:50am ABD BLOATING/CRAMPING/PAIN, NAUSEA, CONS TIPATION November 14, 2024 12:09pm Chief Complaint Admit Date CHRONIC ABD PAIN W/WT LOSS November 06 9:50am ABD BLOATING/CRAMPING/PAIN, NAUSEA, CONS TIPATION November 14, 2024 12:09pm GERD, CELIAC DISEASE December 30, 2024 9:17 am Advance Directives No Advanced Directives Records Found Advance Directive Response Recorded Date/ Time Living Will No October 28, 2023 7:38pm Power of Content Coordinator No October 27 7:38pm Date Activated Date Inactivated Comments 01/09/2025 9:23 AM 01/09/2025 4:38 PM Date Activated Date Inactivated Comments 01/09/2025 9:23 AM 01/09/2025 4:38 PM Summary Purpose Family History No Family History Records FoundNo Family History Records FoundNo Family History Records Found Additional Source Comments Source Comments (unrecognize d section and content) In the event this informatio n is protected by the Federal Confidentiality of Alcohol and Drug Abuse Patient Records regulations: The Federal rules restrict any use of the information to criminally investigate or prosecute any alcohol or drug abuse patient.[facility] the event this information is protected by the Federal Confidentiality of Alcohol and Drug Abuse Patient Records regulations: The Federal rules restrict any use of the information to criminally investigate or prosecute any alcohol or drug abuse patient.[facility] the event this information is protected by the Federal Confidentiality of Alcohol and Drug Abuse Patient Records regulations: The Federal rules restrict any use of the information to criminally investigate or prosecute any alcohol or drug abuse patient.[facility] the event this information is protected by the Federal Confidentiality of Alcohol and Drug Abuse Patient Records regulations: The Federal rules restrict any use of the information to criminally investigate or prosecute any alcohol or drug abuse patient.[facility] the event this information is protected by the Federal Confidentiality of Alcohol and Drug Abuse Patient Records regulations: The Federal rules restrict any use of the information to criminally investigate or prosecute any alcohol or drug abuse patient.[facility] the event this information is protected by the Federal Confidentiality of Alcohol and Drug Abuse Patient Records regulations: The Federal rules restrict any use of the information to criminally investigate or prosecute any alcohol or drug abuse patient.[facility] the event this information is protected by the Federal Confidentiality of Alcohol and Drug Abuse Patient Records regulations: The Federal rules restrict any use of the information to criminally investigate or prosecute any alcohol or drug abuse patient.[facility] the event this information is protected by the Federal Confidentiality of Alcohol and Drug Abuse Patient Records regulations: The Federal rules restrict any use of the information to criminally investigate or prosecute any alcohol or drug abuse patient.[facility] Reason for Visit (unrecogniz ed section and content) Reason Comments Well Child 16 year Reason Comments Well Child Reason Comments Discussion Reason Comments Results Reason Comments Pelvic Pain 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 Figueroa Specialty Diagnoses / Procedures Referred By Agusto kan Referred To Contact General Surgery Diagnoses Gallbladder Procedures MS OFFICE/OUTPATIENT NEW HIGH MDM 60 MINUTES Freddie Figueroa MD [address] [place] [address] Phone: tel: fax: [facility] [place] [address] [place] [address] Phone: tel: fax: Referral ID Status Reason Start Date Expiration Date Visits Re quested Visits Authorized [id number] Closed 01/02/2025 01/02/2026 1 1 Reason Onset Date Comments Post-op Problem 01/09/2025 Reason Comments Post-op PO Lap Anali 01/09 Reason Comments UTI Lower abd pressure, discomfort with urination x2 months, recent gallbladder removal, prior UTI treatment from that Reason Onset Date Comments Post-op Problem 01/15/2025 Care Teams (unrecognized sec tion and content) Service Delivery Supervisor Relationship Specialty Start Date End Date Cam Tan MD [address] [place] [address] PCP - General 05 Service Delivery Supervisor Relationship Specialty Start Date End Date Cam Tan MD [address] [place], [place] [id number] PCP - General 05 Service Delivery Supervisor Relationship Specialty Start Date End Date Cam Tan MD [address] [place], [place] [id number] PCP - General 05 Service Delivery Supervisor Relationship Specialty Start Date End Date Cam Tan MD [address] [place], [place] [id number] PCP - General 05 Team Status: Active Member Role Status Dates Dr. Cam aTn MD Family Provider Active Dr. Cam Tan MD Primary Care Provider Active Team Status: Inactive Member Role Status Dates Dr. Cam Tan MD Primary Care Provider Active Dr. Greg Guardado MD Emergency Provider Active Team Status: Active Member Role Status Dates Dr. Cam Tan MD Primary Care Provider Active Team Status: Inactive Member Role Status Dates Dr. Cam Tan MD Primary Care Provider Active Start: July 09, 2024 End: July 09, 2024 FREDDIE, GLESSING Attending Provider Active Start : July 09, 2024 End: July 09, 2024 FREDDIE, GLESSING Referring Provider Active Start : July 09, 2024 End: July 09, 2024 Team Status: Inactive Member Role Status Dates Dr. Cam Tan MD Primary Care Provider Active Start: September 11, 2024 End: September 11, 2024 FREDDIE, GLESSING Attending Provider Active Start : September 11, 2024 End: September 11, 2024 FREDDIE, GLESSING Referring Provider Active Start : September 11, 2024 End: September 11, 2024 Team Status: Inactive Member Role Status Dates Dr. Cam Tan MD Primary Care Provider Active Start: October 20, 2024 End: October 20, 2024 FREDDIE, GLESSING Attending Provider Active Start : October 20, 2024 End: October 20, 2024 FREDDIE, GLESSING Referring Provider Active Start : October 20, 2024 End: October 20, 2024 Team Status: Inactive Member Role Status Dates Dr. Cam Tan MD Primary Care Provider Active Start: November 06, 2024 End: November 06, 2024 FREDDIE, GLESSING Attending Provider Active Start : November 06, 2024 End: November 06, 2024 FREDDIE, GLESSING Referring Provider Active Start : November 06, 2024 End: November 06, 2024 Team Status: Inactive Member Role Status Dates Dr. Cam Tan MD Primary Care Provider Active Start: November 14, 2024 End: November 14, 2024 FREDDIE, GLESSING Attending Provider Active Start : November 14, 2024 End: November 14, 2024 FREDDIE, GLESSING Referring Provider Active Start : November 14, 2024 End: November 14, 2024 Service Delivery Supervisor Relationship Specialty Start Date End Date Cam Tan MD [address] [place] [address] PCP - General 05 Service Delivery Supervisor Relationship Specialty Start Date End Date Cam Tan MD [address] [place] [address] PCP - General 05 Service Delivery Supervisor Relationship Specialty Start Date End Date Cam Tan [address] [place] [address] PCP - General Pediatrics 01/02/25 Service Delivery Supervisor Relationship Specialty Start Date End Date Cam Tan [address] [place], [place] [id number] PCP - General Pediatrics 01/02/25 Service Delivery Supervisor Relationship Specialty Start Date End Date Cam Tan [address] [place], [place] [id number] PCP - General Pediatrics 01/02/25 Team Status: Inactive Member Role Status Dates Dr. Cam Tan MD Primary Care Provider Active Start: December 30, 2024 End: December 30, 2024 Dr. Freddie Figueroa MD Attending Provider Active Start: December 30, 2024 End: December 30, 2024 Dr. Freddie Figueroa MD Referring Provider Active Start: December 30, 2024 End: December 30, 2024 Team Status: Inactive Member Role Status Dates Dr. Cam Tan MD Primary Care Provider Active Start: January 01, 2025 End: January 01, 2025 Dr. Freddie Figueroa MD Attending Provider Active Start: January 01, 2025 End: January 01, 2025 Dr. Freddie Figueroa MD Referring Provider Active Start: January 01, 2025 End: January 01, 2025 Team Status: Active Member Role Status Dates Dr. Cam Tan MD Primary Care Provider Active Start: December 30, 2024 Dr. Freddie Figueroa MD Attending Provider Active Start: December 30, 2024 Dr. Freddie Figueroa MD Referring Provider Active Start: December 30, 2024 Service Delivery Supervisor Relationship Specialty Start Date End Date Cam Tan [address] [place], [place] [id number] PCP - General Pediatrics 01/02/25 Service Delivery Supervisor Relationship Specialty Start Date End Date Cam Tan MD [address] [place], [place] [id number] PCP - General 05 Service Delivery Supervisor Relationship Specialty Start Date End Date Cam Tan [address] [place], [place] [id number] PCP - General Pediatrics 01/02/25 Service Delivery Supervisor Relationship Specialty Start Date End Date Cam Tan MD [address] [place], [place] [id number] PCP - General 05 Goals (unrecognized section and content) Goals may be documented in a n alternate sectionGoals may be documented in an alternate sectionGoals may be documented in an alternate sectionGoals may be documented in an alternate sectionGoals may be documented in an alternate sectionGoals may be documented in an alternate section Scheduled Active and Recently Administ ered Medications (unrecognized section and content) Medication Order 01/07/2025 01/08/2025 01/09/2025 acetaminophen (Tylenol) tablet 1,000 mg (COMPLETED) 1,000 mg, Oral, Once, On Sun01/09/25 at 0930, For 1 dose, Preprocedure, Administer 60 minutes prior to surgery. 0940 (Given - Provid er: Arlyn Morales RN) cefOXitin (Mefoxin) 2,000 mg in sodium chloride 0.9 % 50 mL IVPB Mini-Bag Plus (COMPLETED) 2,000 mg, IntraVENous, at 100 mL/hr, Administer over 30 Minutes, Cardiopulmonary Supervisor to O.R., On Sun01/09/25 at 1015, For 1 dose, Preprocedure, Mini-Bag Plus bag, Suspected Indication (Select all that apply): Surgical Prophylaxis 1057 (New Bag - Prov ider: Rosalba Banks, DIRECTOR [employer] - FLOORING SALES MANAGER) famotidine (Pepcid) 20 mg in sodium chloride (PF) 0.9 % 10 mL injection(Linked Group 1) 20 mg, IntraVENous, Administer over 2 Minutes, Once, On Sun01/09/25 at 1000, For 1 dose, Preprocedure, IV or Oral 1000 (Canceled Entry - Provider: Automatic Discharge Provider - Comment: Automatically canceled at discontinue of medication order) famotidine (Pepcid) tablet 20 mg (COMPLETED)(Linked Group 2) 20 mg, Oral, Once, On Sun01/09/25 at 0930, For 1 dose, Preprocedure, IV or Oral 0940 (Given - Provid er: Arlyn Morales RN) famotidine (Pepcid) tablet 20 mg(Linked Group 1) 20 mg, Oral, Once, On Sun01/09/25 at 1000, For 1 dose, Preprocedure, IV or Oral 1000 (Canceled Entry - Provider: Automatic Discharge Provider - Comment: Automatically canceled at discontinue of medication order) sodium chloride 0.9% (NS) flush 10 mL 10 mL, IntraVENous, Every 12 hours scheduled (2 times per day), First dose on Sun01/09/25 at 0930, Preprocedure 0939 (Given - Provid er: Arlyn Morales RN) sodium chloride 0.9% (NS) flush 5-40 mL 5-40 mL, IntraVENous, Every 12 hours, First dose on Sun01/09/25 at 0930, Preprocedure, For Line Patency: Peripheral IV = 5 mL; Midline or Central Line = 10 mL/lumen. If following IV push medication, administer flush at same rate as the IV push. Flush volume is determined by type of infusion therapy being given. For non-viscous solutions use: Peripheral IV = 5 mL Midline or Central Line = 10 mL/lumen For viscous solutions (i.e. blood components, parenteral nutrition, contrast media, or after obtaining blood sample) use: Peripheral IV = 10 mL Midline or Central Line = 20 mL/lumen 0940 (Canceled Entry - Provider: Arlyn Morales RN) Continuous Medication Order 01/07/2025 01/08/2025 01/09/2025 lactated Ringer's (LR) infusion 50 mL/hr, IntraVENous, Continuous, Starting on Sun01/09/25 at 0930, Preprocedure, Upon admission to sameday - please start iv if patient does not have iv access. Use 500ml NS for patients on dialysis. 0939 (New Bag - Prov ider: Arlyn Morales RN)1044 (Continued by Anesthesia - Provider: YESI Sparrow CRNA)1044 (Paused - Provider: YESI Sparrow CRNA - Comment: Switch to gravity)1045 (Restarted - Provider: YESI Sparrow CRNA)1129 (Stopped - Provider: YESI Sparrow CRNA) lactated Ringer's (LR) infusion 50 mL/hr, IntraVENous, Continuous, Starting on Sun01/09/25 at 1000, Preprocedure, Upon admission to sameday - please start iv if patient does not have iv access. Use 500ml NS for patients on dialysis. 1000 (Canceled Entry - Provider: Automatic Discharge Provider - Comment: Automatically canceled at discontinue of medication order) PRN Medication Order 01/07/2025 01/08/2025 01/09/2025 ALPRAZolam (Xanax) disintegrating tablet 0.25 mg 0.25 mg, Oral, Once PRN, anxiety, Starting on Sun01/09/25 at 0923, For 1 dose, Preprocedure, Please do not administer prior to obtaining consent and/or history and physical. ALPRAZolam (Xanax) disintegrating tablet 0.25 mg 0.25 mg, Oral, Once PRN, anxiety, Starting on Sun01/09/25 at 0947, For 1 dose, Preprocedure, Please do not administer prior to obtaining consent and/or history and physical. HYDROmorphone (Dilaudid) injection 0.5 mg (CANCELED) 0.5 mg, IntraVENous, Every 5 min PRN, severe pain (7-10), Starting on Sun01/09/25 at 1144, For 4 doses, Recovery (only), For Phase I. If Phase II oral narcotics have been administered in the last 60 minutes, do not administer IV narcotics unless specifically approved by provider. 1209 (Given - Provid er: Deanne Chaudhry RN)1232 (Given - Provider: Deanne Chaudhry RN) ondansetron (Zofran) injection 4 mg (COMPLETED) 4 mg, IntraVENous, Once PRN, nausea, Starting on Sun01/09/25 at 1144, For 1 dose, Recovery (only), Initial antiemetic therapy. 1210 (Given - Provid er: Deanne Chaudhry RN) oxyCODONE (Roxicodone) immediate release tablet 10 mg (COMPLETED)(Linked Group 3) 10 mg, Oral, Every 4 hours PRN, severe pain (7-10), Starting on Sun01/09/25 at 1144, For 1 dose, Recovery (only), PHASE II 1247 (Given - Provid er: Layla aKur RN) sodium chloride 0.9 % infusion 5-250 mL/hr, IntraVENous, PRN, if patient receiving piggyback infusions and maintenance fluids are not ordered OR KVO fluids to protect IV site / prevent frequent line interruptions / long duration, Starting on Sun01/09/25 at 0923, Preprocedure, For piggyback infusion, administer at same rate as piggyback for a total of 25 mL. Enter 25 mL into dose field and piggyback rate into rate field of order. If piggyback is infusing at a rate less than 100 mL/hr, enter 25 mL into dose field and 100 mL/hr into rate field of order. For KVO fluids, enter rate of 20 mL/hr or less into rate field of order. sodium chloride 0.9 % infusion 5-250 mL/hr, IntraVENous, PRN, if patient receiving piggyback infusions and maintenance fluids are not ordered OR KVO fluids to protect IV site / prevent frequent line interruptions/ long duration, Starting on Sun01/09/25 at 0923, Preprocedure, For piggyback infusion, administer at same rate as piggyback for a total of 25 mL. Enter 25 mL into dose field and piggyback rate into rate field of order. If piggyback is infusing at a rate less than 100 mL/hr, enter 25 mL into dose field and 100 mL/hr into rate field of order. For KVO fluids, enter rate of 20 mL/hr or less into rate field of order. sodium chloride 0.9% (NS) flush 10 mL 10 mL, IntraVENous, PRN, line care, Starting on Sun01/09/25 at 0923, Preprocedure, After every IV line use sodium chloride 0.9% (NS) flush 5-40 mL 5-40 mL, IntraVENous, PRN, line care, After every IV line use, Starting on Sun01/09/25 at 0923, Preprocedure, For Line Patency: Peripheral IV = 5 mL; Midline or Central Line = 10 mL/lumen. If following IV push medication, administer flush at same rate as the IV push. Flush volume is determined by type of infusion therapy being given. For non-viscous solutions use: Peripheral IV = 5 mL Midline or Central Line = 10 mL/lumen For viscous solutions (i.e. blood components, parenteral nutrition, contrast media, or after obtaining blood sample) use: Peripheral IV = 10 mL Midline or Central Line = 20 mL/lumen sterile water irrigation solution (CANCELED) As needed, Starting on Sun01/09/25 at 1050, Intraprocedure 1050 (Given - Provid er: Tarun Farris MD - Comment: IN SCOPE WARMER) Linked Groups Order Group 1: famotidine (Pepcid) tablet 20 mgJump to med 20 mg, Oral, Once, On Sun01/09/25 at 1000, For 1 dose, Preprocedure, IV or Oral Or famotidine (Pepcid) 20 mg in sodium chloride (PF) 0.9 % 10 mL injectionJump to med 20 mg, IntraVENous, Administer over 2 Minutes, Once, On Sun01/09/25 at 1000, For 1 dose, Preprocedure, IV or Oral Group 2: famotidine (Pepcid) tablet 20 mg (COMPLETED)Jump to med 20 mg, Oral, Once, On Sun01/09/25 at 0930, For 1 dose, Preprocedure, IV or Oral Or famotidine (Pepcid) 20 mg in sodium chloride (PF) 0.9 % 10 mL injection (COMPLETED) 20 mg, IntraVENous, Administer over 2 Minutes, Once, On Sun01/09/25 at 0930, For 1 dose, Preprocedure, IV or Oral Group 3: oxyCODONE (Roxicodone) immediate release tablet 5 mg (COMPLETED) 5 mg, Oral, Every 4 hours PRN, moderate pain (4-6), Starting on Sun01/09/25 at 1144, For 1 dose, Recovery (only), PHASE II Or oxyCODONE (Roxicodone) immediate release tablet 10 mg (COMPLETED)Jump to med 10 mg, Oral, Every 4 hours PRN, severe pain (7-10), Starting on Sun01/09/25 at 1144, For 1 dose, Recovery (only), PHASE II INFORMATION SOURCE (unrecogn ized section and content) DATE CREATED AUTHOR 01/25/2025 [facility] DATE CREATED AUTHOR AUTHOR'S ORGANIZ ATION 01/30/2025 [facility] DATE CREATED AUTHOR AUTHOR'S ORGANIZ ATION 02/21/2025 [facility] FOR RECORDS PERTAINING TO PATIENTS WHO ARE OR HAVE BEEN ENROLLED IN A CHEMICAL DEPENDENCY/SUBSTANCEABUSE PROGRAM, SOME INFORMATION MAY BE OMITTED. This clinical summary was aggregated from multiple sources. Caution should be exercised in using it in the provision of clinical care. This summary normalizes information from multiple sources, and as a consequence, information in this document may materially change the coding, format and clinical context of patient data. In addition, data may be omitted in some cases. CLINICAL DECISIONS SHOULD BE BASED ON THE PRIMARY CLINICAL RECORDS. [employer] provides no warranty or guarantee of the accuracy or completeness of information in this document.
--- NOTE | 2025-02-24 07:17 | MRI_ITS ---
PROCEDURE: MRI ABD WITH AND W/O CONTRAST, 02/24/2025 REASON FOR EXAM: ABNORMAL ABD US, LIVER CYST, LIVER HEMANGIOMA, ABNORMAL HIDA SCAN TECHNIQUE: Multiplanar multisequence MRI abdomen was performed with and without IV contrast. IV contrast: 13 mL Clariscan COMPARISON: 12/30/2024 FINDINGS: A few sequences, mostly T2 weighted, are mildly motion degraded. In/out of phase imaging not performed. Liver: Nonenhancing but T1 bright bilobed probably cystic lesion containing hemorrhagic or proteinaceous contents in the anterior subcapsular segment Brianna lesion measures 2.8 x 1.4 x 1.7 cm compared with 3.5 x 2.2 x 1.8 cm on 10/28/2023 when measured similarly. Additional 0.5 cm T2 bright lesion in segment IV B measures 0.5 cm, essentially unchanged from 10/27/2024, without appreciable enhancement on postcontrast imaging, but with restricted diffusion. No definite correlate on T2 possibly due to motion artifact and small size. Spleen: Unremarkable. Gallbladder: Interval cholecystectomy. Pancreas: Unremarkable. Adrenals: Unremarkable. Kidneys: Unremarkable. Bowel: Not well evaluated by MRI; no gross bowel dilatation. Lymph nodes: Unremarkable. Vasculature: Unremarkable. Peritoneum: Unremarkable. Bones: Unremarkable. MRI/MRI Abd WITH and W/O Contrast IMPRESSION: 1. A nonspecific 2.8 cm cystic lesion in segment Brainna has decreased slightly in size since the earliest available exam of 10/28/2023. Signal characteristics suggest hemorrhagic/proteinaceous contents. A 0.5 cm lesion in segment IVb has not changed appreciably in size from 10/28/2023. This is not typical of a hemangioma but c ould reflect an atypical hemangioma in the absence of known malignancy. Would consider sonographic follow-up to establish two yea rs of stability for both findings given that these are nonspecific by MRI. 2. Additional description as above. Reading Location: [id number]
== END | disposition home or self-care (01) ==
PROVIDERS: PCP Pediatrics; Referring Provider Internal Medicine Gastroenterology; Visit Provider Internal Medicine Gastroenterology
DX: R93.5 Abnormal findings on diagnostic imaging of other abdominal regions, including retroperitoneum (principal); K76.89 Other specified diseases of liver; D18.03 Hemangioma of intra-abdominal structures; R94.8 Abnormal results of function studies of other organs and systems
CPT/HCPCS: 74183; A9575; A4216

== ENCOUNTER → 2025-04-02 | Outpatient (CLI) | payer OTHER, SELFPAY ==
[2025-04-02 18:34] LABS: Vitamin D,25 Hydroxy 34.3 ng/mL (30-100)
[2025-04-09 14:08] LABS: Copper, Serum or Plasma 111 ug/dL (80-158); Zinc, Plasma or Serum 80 ug/dL (44-115)
== END | disposition home or self-care (01) ==
PROVIDERS: PCP Pediatrics; Referring Provider Internal Medicine Gastroenterology; Visit Provider Internal Medicine Gastroenterology
DX: R14.0 Abdominal distension (gaseous) (principal); R10.9 Unspecified abdominal pain; K90.0 Celiac disease; D18.03 Hemangioma of intra-abdominal structures
CPT/HCPCS: 36415; 82306; 82525; 84630; 85652